=== PATIENT | female | born 1950 | race Caucasian/White ===

== ENCOUNTER 2017-08-17 15:41 | Inpatient (IN) ==
[2017-08-17] MEDS ORDERED: 0.9 % Sodium Chloride 1,000 ML ONE ×2 (15:50→16:08)
[2017-08-17] MEDS ORDERED: *HR* Midazolam HCl 2 MG/2 ML VIAL ONE (15:50)
[2017-08-17] MEDS ORDERED: Verapamil 5 MG/2 ML VIAL ONE (15:50)
[2017-08-17] MEDS ORDERED: *HR* FentaNYL (PF) 100 MCG/2 ML VIAL ONE (15:50)
[2017-08-17] MEDS ORDERED: Nitroglycerin 1,000 MCG/10 ML VIAL IV ONE (15:51)
[2017-08-17] MEDS ORDERED: ISOVUE-370 200 ML INFUS..BTL IV ONE (15:51)
[2017-08-17] MEDS ORDERED: *HR* Heparin 10,000 UNIT/10 ML VIAL ONE (15:51)
[2017-08-17] MEDS ORDERED: Heparin 1,000 UNITS/500 mL 500 ML ONE (15:51)
[2017-08-17] MEDS ORDERED: *HR* Ticagrelor 90 MG TABLET ONE (15:57)
[2017-08-17] MEDS ORDERED: *HR* Heparin 5,000 UNIT/ML VIAL ONE (15:58)
[2017-08-17] MEDS ORDERED: *HR* Heparin 5,000 UNIT/ML VIAL IVP PRN ×4 (15:58→16:37)
[2017-08-17] MEDS ORDERED: *HR* Heparin 5,000 UNIT/ML VIAL IVP ONE (15:58)
--- NOTE | 2017-08-17 15:58 | Emergency Department Note ---
Disposition Clinical Impression: STEMI (ST elevation myocardial infarction) Qualifiers: Involved coronary artery: unspecified coronary artery Qualified Code(s): I21.3 - ST elevation (STEMI) myocardial infarction of unspecified site Disposition: Admitted As Inpatient Condition: Critical Time of Disposition: 16:04 Chest Pain HPI - General Stated Complaint: Stemi Alert Time Seen by Provider: 08/17/17 15:53 Vital Signs Reviewed: Yes Nursing Notes Reviewed: Yes - History of Present Illness HPI Narrative: Mrs. Jensen, 67-year-old female, presents from home via EMS for evaluation of chest pain. Onset 2 PM. Constant. Described as left parasternal, heavy, dull. Nonradiating. Rated 8/10. Associate with nausea. No dyspnea. Patient is on 81 milligrams aspirin and as well as Plavix daily. She is unsure if she took her Plavix today. Cardiac history: Prior history of WV with 45 stents. Patient is unsure of how many stents, their locations, or last [place]. 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 - Related Data Allergies Allergy/AdvReac Type Severity Reaction Status Date / Time No Known Allergies Allergy Verified 08/17/17 15:52 Review of Systems: As Per HPI Physical Exam Vital Signs Reviewed General: Patient is alert, oriented, and in acute distress from her chest pain. He appears frail and cachectic. Head: atraumatic, normocephalic Eye: normal appearance, PERRL, EOMI, no scleral icterus, no conjunctival injection ENT: mucous membranes moist, normal external ear exam Neck: normal inspection, trachea midline, full ROM Chest: normal inspection, symmetric chest rise Respiratory: Good respiratory effort. Bilateral breath sounds are clear without wheezing, crackles, or rhonchi. Cardiovascular: Regular rate and rhythm. No clicks, rubs, gallops, or murmors. Normal heart sounds. Abdomen: Bowel sounds present normoactive x-4 quadrants. Abdomen is soft, nondistended, and nontender. No guarding or rebound. No organomegaly noted. Musculoskeletal: Spontaneously moving all extremities. Skin: warm, dry, intact. Neuro: Alert and oriented x4. Sensation light touch intact. Psych: Patient's affect is appropriate for situation. Course Course Narrative: Intake EKG during triage shows inferior lateral STEMI. STEMI alert called. Patient received full dose of aspirin in route by EMS. Will avoid nitroglycerin given the location of her ischemic changes on EKG. Attending discussed the patient with on-call cutter hot knife, Dr. Triplett, who accepts the patient to the Specialist Icu. Patient given heparin bolus and Brilenta. EKG dated 02 06 2018 interpreted as sinus rhythm with rate of 70. ST elevation leads 2, 3, and aVF with ST depression in aVL and T-wave inversion in leads V1, V2, and V3. Heart Score - Score History: Highly Suspicious EKG: Significant ST-Depression Age: 45-65 Risk Factors: Equal/Greater than 3 risk factor or history of atherosclerotic disease
[2017-08-17] MEDS ORDERED: *HR* Ticagrelor 90 MG TABLET PO ONE (15:59)
--- NOTE | 2017-08-17 16:03 | Emergency Department Note ---
Disposition Clinical Impression: STEMI (ST elevation myocardial infarction) Disposition: Admitted As Inpatient Condition: Critical Time of Disposition: 16:00 Chest Pain HPI - General Chief Complaint: ED Chest Pain Stated Complaint: Stemi Alert Time Seen by Provider: 08/17/17 15:53 Source: EMS Mode of arrival: ambulatory Limitations: no limitations Vital Signs Reviewed: Yes Nursing Notes Reviewed: Yes - History of Present Illness Severity scale (1-10): 8 - Related Data Allergies Allergy/AdvReac Type Severity Reaction Status Date / Time No Known Allergies Allergy Verified 08/17/17 15:52 Chest Pain PMH - Past Medical History Medical history: Reports: CHF, COPD, coronary artery disease, CVA, hyperlipidemia, hypertension Psychiatric history: Reports: no psych history CLAIMS ACCOUNT MANAGER history: Reports: no CLAIMS ACCOUNT MANAGER history - Social History Smoking Status: Current every day smoker Alcohol use: Reports: none Drug use: Reports: none Physical Exam - General Limitations: no limitations General appearance: alert, in no apparent distress Course Vital Signs Temperature 98.5 F 08/17/17 15:50 Pulse Rate 74 08/17/17 15:50 Respiratory Rate 14 08/17/17 15:50 Blood Pressure 146/66 08/17/17 15:50 O2 Sat by Pulse Oximetry 74 08/17/17 15:50 Temperature 98.5 F 08/17/17 15:50 Pulse Rate 74 08/17/17 15:50 Respiratory Rate 14 08/17/17 15:50 Blood Pressure 146/66 08/17/17 15:50 O2 Sat by Pulse Oximetry 74 08/17/17 15:50 Oxygen Delivery Oxygen Delivery Nasal Cannula Attestation Statement - Attestation Attestation: I, Henrry Owens, examined this patient and my medical decision-making was reviewed with the PERFORMANCE SPECIALIST/PA/Advanced Practice Nurse/Resident Physician. I agree with the documented findings, disposition and treatment plan as described except to the extent set forth below. 67-year-old female presents emergency Department with acute onset chest pain at 1400. Patient states she had acute onset of nausea and diaphoresis associated with this chest pain. The chest pain associated in the center of her chest and does not radiate. She has a history of previous WI with about [address] Patient is unsure when the last time she had a cardiac evaluation. She not remember the name of her bottle blower. She had an EKG which showed likely inferior WI with elevations in leads 2, 3, aVF with depressions in leads aVL and V6. And T-wave inversions in V2, V3, V1. Patient was assessed immediately on arrival, we spoke with the baby counselor, Dr. Triplett who accepted to the Third Rigger. Patient given 324 chewable aspirin in the EMS ride, she was given Proventil in the emergency department as well as a heparin bolus.
[2017-08-17] MEDS ORDERED: *HR* Atropine Sulfate 1 MG/10 ML SYRINGE ONE (16:16)
[2017-08-17 16:19] LABS: Basophils % 0.1 %; Hematocrit 32.5 % (35.3-44.9); Hemoglobin 10.2 g/dL (11.5-15.4); Immature Granulocytes % 0.3 % (0-4); Lymphocytes # 0.8 K/mcL (0.6-4.6); Lymphocytes % 11.5 %; Mean Corpuscular HGB Conc 31.4 g/dL (31.6-35.5); Mean Corpuscular Hemoglobin 20.9 pg (28.0-33.3); Mean Corpuscular Volume 66.6 fL (83.0-100.0); Mean Platelet Volume 10.1 fL (9.4-12.4); Monocytes # 0.5 K/mcL (0.0-1.3); Monocytes % 7.5 %; Neutrophils # 5.4 K/mcL (1.6-8.9); Platelet Count 324 K/mcL (140-400); Red Blood Count 4.88 M/mcL (3.82-4.97); Red Cell Distribution Width 18.6 % (11.5-14.5); Segmented Neutrophils % 80.6 %
[2017-08-17 16:36] LABS: INR 1.2; Prothrombin Time 12.5 Seconds (9.4-12.1)
[2017-08-17 16:39] LABS: Activated Partial Thrombo Time 30.5 Seconds (26.0-36.0)
[2017-08-17 16:45] LABS: Anisocytosis 1+ (Not Present); Hypochromasia Present (Not Present); Microcytosis Present (Not Present); Platelet Estimate Normal (Normal)
[2017-08-17 16:47] LABS: BUN/Creatinine Ratio 17 (6-26); Blood Urea Nitrogen 8 mg/dL (8-23); Calcium 8.6 mg/dL (8.6-10.3); Carbon Dioxide 25 mEq/L (23-29); Chloride 82 mEq/L (98-107); Glucose 110 mg/dL (70-105); Magnesium 1.5 mg/dL (1.6-2.6); Osmolality,Calculated 245 (280-300); Potassium 3.3 mEq/L (3.5-5.1); Sodium 118 mEq/L (136-145); Troponin I 0.05 ng/mL (< 0.04); eGFR For African Americans > 60 (> 60); eGFR For Non-African Americans > 60 (> 60)
--- NOTE | 2017-08-17 17:00 | Pre-Sedation Evaluation ---
Pre-sedation evaluation - Pre-sedation checklist Date of procedure: 08/17/17 Procedure: [facility] Recent Vitals: Last Vital Signs Temp 98.5 F 08/17/17 15:50 Pulse 72 08/17/17 15:57 Resp 14 08/17/17 16:04 BP 146/66 08/17/17 16:04 Pulse Ox 94 08/17/17 15:57 H&P (including ROS) documented in medical record: Yes Previous reaction to sedatives/anesthetics: No Dietary Status: NPO after Midnight Airway Assessment: Patient can open mouth completely, TMJ function normal ASA Classification *see protocol: CLASS II-Mild systemic disease Plan of Care: Pt appropriate candidate for procedure/moderate/conscious sedation , Risks/benefits of procedure/sedation discussed w/ patient/family
--- NOTE | 2017-08-17 17:05 | Cardiology History & Physical ---
Date of Encounter: 08/20/17 Time of Encounter: 17:00 Assessment and Plan (1) STEMI (ST elevation myocardial infarction) Current Visit: Yes Status: Ruled-out A/R/B of emergent LHC discussed with her including 1% chance of MN//CVA/ CABG/MILO/bleeding. Pt aware and agreeable with proceeding. Will attempt to obtain old EKG from [facility]. EF assessment and cardiac rehab. The assessment and plan as outlined above was discussed with the patient and/or family members who expressed understanding and agreement. All questions were answered. Qualifiers: Involved coronary artery: other inferior wall coronary artery Qualified Code(s): I21.19 - ST elevation (STEMI) myocardial infarction involving other coronary artery of inferior wall (2) Hyponatremia Current Visit: Yes Status: Acute The assessment and plan as outlined above was discussed with the patient and/or family members who expressed understanding and agreement. All questions were answered. (3) Hypokalemia Current Visit: Yes Status: Acute The assessment and plan as outlined above was discussed with the patient and/or family members who expressed understanding and agreement. All questions were answered. History of Present Illness Chief complaint: chest pain HPI: Ms. Jnesen is a 67 year old female with CAD sp PCI and Systolic CHF sp ICD presents with 10/10 left sided chest pain not relieved with aspirin/ntg. EKG shows inferior Q waves and ST elevation with ongoing chest discomfort and at the time no previous EKG to compare (all records at [facility]). Subsequently, laboratory chemical assistant team activated. Past Med Surg Social Fam HX - Past Medical History Medical history: CHF, COPD, coronary artery disease, CVA, hyperlipidemia, hypertension Psychiatric history: no psych history - Social History Smoking Status: Current every day smoker Smokeless Tobacco Status: No Alcohol use: none Drug use: none Medications and Allergies Clopidogrel [Plavix] 75 mg PO DAILY 08/17/17 [History] Furosemide [Lasix] 20 mg PO DAILY 08/17/17 [History] Metoprolol XL (24 HR) Succ [Toprol Xl] 12.5 mg PO DAILY 08/17/17 [History] Omeprazole [PriLOSEC] 20 mg PO DAILY 08/17/17 [History] Sacubitril/Valsartan [Entresto 24 mg-26 mg Tablet] 1 tab PO BID 08/17/17 [ History] Spironolactone [Aldactone] 25 mg PO DAILY 08/17/17 [History] 3 Allergy/AdvReac Type Severity Reaction Status Date / Time No Known Allergies Allergy Verified 08/17/17 15:52 All Systems Review: The remainder of the systems were reviewed and are negative - Constitutional Constitutional: no chills, no fever(s) - EENT Eyes: no blurred vision, no loss of vision Nose, mouth and throat: no bleeding gums, no dysphagia - Cardiovascular Cardiovascular: chest pain at rest, chest pain with exertion - Respiratory Respiratory: no hemoptysis, no wheezing - Gastrointestinal Gastrointestinal: no hematemesis, no hematochezia - Genitourinary Genitourinary: no dysuria, no hematuria - Musculoskeletal Musculoskeletal: no arthralgias, no myalgias - Integumentary Integumentary: no rash, no unusual bruising - Neurological Neurological: no syncope, no tingling - Psychiatric Psychiatric: no hallucinations, no panic attacks - Hematological/Lymphatic Hematologic/Lymphatic: no easy bleeding, no easy bruising Physical Examination General: Conversant, No Apparent Distress HEENT: Atraumatic Neck: No JVD Cardiac: Reg Rate and Rhythm, Normal S1 and S2 Lungs: Normal Breath Sounds Neuro: Alert and responsive Abdomen: Soft Skin: No rashes noted on visualized skin Musculoskeletal: No Chest Wall Tenderness Extremities: No Edema Results 08/20/17 03:46 08/20/17 03:46 - EKG Interpretation EKG results cardiology: personally reviewed, sinus rhythm (inferior Q wave and st elevation; with LVH and strain pattern. no old ekg to compare)
[2017-08-17] MEDS ORDERED: Ondansetron 4 MG/2 ML VIAL IVP PRN (17:09)
[2017-08-17] MEDS ORDERED: Ipratropium/Albuterol Neb 3 ML IH ONE (17:26)
--- NOTE | 2017-08-17 18:38 | Invasive Diagnostic Lab Proc ---
Name: Allyn Jensen Date of Study: 08/17/2017 Date: 1950 Ht: 66.5in Medical Record#: [id number] Age: 67 Wt: 119.05lb Gender: Female BSA: 1.61 Order #: [id number] BMI: 18.91 Physicians Procedure Physician: Lawrence Triplett [facility], [facility] Referring MD: Referring MD: Staff Name Position [facility] Monitor 04:06 PM Leah Cook RN Credit Risk Management Director 04:06 PM Janett Lewis RN Credit Risk Management Director 04:06 PM Sergio Ralph RN Nurse 04:06 PM Leslie Jurado RN Nurse 04:06 PM Kriss Downing RT Scrub 04:06 PM Indications Indication STEMI Procedures Performed Procedure L HRT ARTERY/VENTRICLE ANGIO Pre-Procedure Checklist H&P is on chart. ID band is on and ID verified with patient. Patient NPO for procedure The procedure was described for the patient and questions were answered. Blood Pressure: 122/83 ECG is on chart. Rhythm: NSR Plan of Care Patient will tolerate the procedure without complications. Adequate level of comfort will be maintained. Hemodynamics will remain stable Patient will recover from procedure without complications. Respiratory function will be maintained. Cardiac rhythm will remain stable. Patient temperature will be maintained. Patient and/or family have verbalized understanding of the procedure. Patient Education Intravenous Access Time IV Size Location DC'd Fluid/Drip Rate Units RN 20g 1 1/4" Patent On Arrival Lt Hand Leah Cook RN 18g 1 1/4" Patent On Arrival Rt Antecubital Leah Cook RN Allergies No Known Allergies Vital Signs Time BP (mmHg) HR (bpm) O2 Sat. RR (bpm) LOC 04:07 PM / % 5 = Fully awake and oriented or at pre-proc level 04:07 PM / % 4 = Oriented but drowsy 04:37 PM / % 4 = Oriented but drowsy 04:53 PM 122 / 83 69 100 % 04:58 PM 119 / 81 69 100 % 04:08 PM 127 / 97 173 93 % 04:13 PM 110 / 77 69 85 % 04:18 PM 88 / 63 67 % 04:23 PM 100 / 59 64 97 % 04:28 PM 96 / 65 72 97 % 04:33 PM 101 / 69 72 98 % 04:38 PM 100 / 71 70 98 % 04:43 PM 110 / 78 72 99 % 04:48 PM 112 / 79 71 100 % 05:15 PM 107 / 85 66 100 % 16 5 = Fully awake and oriented or at pre-proc level 05:30 PM 135 / 92 58 99 % 18 5 = Fully awake and oriented or at pre-proc level 05:45 PM 141 / 84 60 100 % 14 5 = Fully awake and oriented or at pre-proc level 06:00 PM 153 / 94 72 98 % 16 5 = Fully awake and oriented or at pre-proc level 06:15 PM 146 / 97 65 97 % 18 5 = Fully awake and oriented or at pre-proc level 06:27 PM 110 / 92 67 97 % 16 5 = Fully awake and oriented or at pre-proc level Procedural Medications Time Medication Dose Units Method Given By 04:07 PM Oxygen 2 L/min nasal cannula Janett Lewis RN 04:09 PM Versed 2 mg Intravenous Leah Cook RN 04:09 PM Fentanyl 50 mcg Intravenous Leah Cook RN 04:11 PM Lidocaine 2% 0.[address] Triplett 04:13 PM Heparin units Nitroglycerin 200 mcg Verapamil 2.5 mg Intraarterial Lawrence Triplett MD, FACC 04:13 PM Oxygen 6 L/min nasal cannula Leah Cook RN 04:15 PM Oxygen 6 L/min Oxy Mask Leah Cook RN Willie Score Preprocedure Postprocedure Activity 2- Moves 4 extremities sustained head lift Activity 2- Moves 4 extremities sustained head lift Circulation 2- SBP +/= 20 points of pre-anesthetic level Circulation 2- SBP +/= 20 points of pre-anesthetic level Consciousness 2- Awake and alert oriented x 3 Consciousness 2- Awake and alert oriented x 3 O2 Saturation 1- Needs O2 inhalation to maintain O2 saturation of 90% O2 Saturation 1- Needs O2 inhalation to maintain O2 saturation of 90% Respiratory 2- Able to deep breathe and cough well Respiratory 2- Able to deep breathe and cough well Total Score 9 Total Score 9 Contrast Agent: Isovue Diagnostic Contrast: 46 ml Total Contrast: 46 ml Fluoro Dose: 120 mGy Procedure Log Time Note Enter By 04:06 PM Pt arrived to [facility] 2 at 16:06 [facility] 04:06 PM Liliam Stanford RN Position: Monitor Time in: 16:06 [email or web address] 04:06 PM Leah Cook RN Position: Credit Risk Management Director Time in: 16: tsoummers 04:06 PM Janett Lewis RN Position: Credit Risk Management Director Time in: 16: tsoummers 04:06 PM Sergio Ralph RN Position: Nurse Time in: 16: tsoummers 04:06 PM Leslie Jurado RN Position: Nurse Time in: 16: tsoummers 04:06 PM Kriss Downing RT Position: Scrub Time in: 16: tsoummers 04:06 PM Patient charges- Angio tray pack, Navilyst 3mm J, Pulse Oximetry and ACIST tubing and transducer tsoummers 04:06 PM Case Delayed No tsoummers 04:07 PM Hair removed from procedure site in procedure lab using clippers. Bilateral groin prepped with Chloraprep by Leslie Jurado RN, then patient was draped. Skin intact. tsoummers 04:07 PM Physican paged/called 16:07. tsoummers 04:07 PM Physicsilvina responded and notified patient is ready 16: tsoummers 04:07 PM Physician arrived 16: tsoummers 04:07 PM Meet and greet completed tsoummers 04:07 PM Sign in performed according to hospital policy. tsoummers 04:07 PM Procedure start 16: tsoummers 04:07 PM Time: 16:07 Oxygen on at 2 L/min per nasal cannula by Janett Lewis RN tsoummers 04:07 PM Hair removed from procedure site in procedure lab using clippers. Right wrist prepped with Chloraprep by Leslie Jurado RN, then patient was draped. Skin intact. tsoummers 04:07 PM Time: 16:07 Patient comfortable and pain free: Yes tsoummers 04:07 PM Time: 16:07LOC: 5 = Fully awake and oriented or at pre-proc level tsoummers 04:07 PM Vitals capture started with the following parameters, Patient=Adult, Interval=5 min, Initial Odgbijbo=600 mmHg, Deflation Rate=5 mmHg, Cuff placed on Right Arm 04:07 PM CathStat 04:08 PM AL=377 bpm, UGWE=738/97 mmhg, SpO2=93.0 % 04:09 PM Time: 16:09 Versed 2 mg Intravenous Given by Leah Cook RN 04:09 PM Time: 16:09 Fentanyl 50 mcg Intravenous Given by Leah Cook RN 04:09 PM Recorded ECG: HR=81 Condition=Condition 1 04:10 PM Clinical Presentation: STEMI or equivalent tsoumm 04:11 PM Time out performed according to hospital policy oumm 04:11 PM Time: 16:11 0.5 ml Lidocaine 2% to right radial Subcutaneous Given by Dr. Triplett rajeshcherelle 04:12 PM Recorded ECG: HR=75 Condition=Condition 1 04:13 PM HR=69 bpm, DNLW=859/77 mmhg, SpO2=85.0 % 04:13 PM Access obtained by percutaneous puncture. 6Fr 10cm Terumo Glidesheath sheath placed in right Radial artery. [id number] 04:13 PM Time: 16:13 Patient given 200 mcg Nitroglycerin, and 2.5 mg Verapamil Intraarterial by Lawrence Triplett MD, [facility]. This is given to reduce risk of vessel spasm and thrombosis. oumm 04:13 PM Time: 16:13 Oxygen on at 6 L/min per nasal cannula by Leah Cook RN [facility] 04[facility]14 PM Inflation device was opened. tsoumm 04:14 PM 6Fr JR 4 Runway guide catheter was used to cannulate the PCI vessel successfully. reused? No oummers 04:14 PM 0.035 260cm Navilyst 3mmJ wire [id number] tsoummers 04:14 PM Pressure channel 1 zero failed. 04:14 PM Pressure channel 1 zero failed. 04:14 PM Pressure channel 1 zero failed. 04:15 PM wire removed oummcherelle 04:15 PM Time: 16:15 Oxygen on at 6 L/min per Oxy Mask by Leah Cook RN 04:15 PM Pressure channel 1 zero failed. 04:15 PM Recorded Pressure: Ao, HR=68, Condition=Condition 1 (Aorta) Ao 109/73/89 04:16 PM RCA angiography performed in multiple views. tsoummers 04:16 PM Lesion found in Mid RCA. Pre Stenosis: 100 Pre JEAN-PIERRE Flow: 0: No Flow/No perfusion tsoummers 04:16 PM .014 [place] 190cm guide wire across target lesion- successful. reused? No oummers 04:16 PM Coronary Dominance: right tsmmers 04:16 PM Right Coronary, Right Posterior Descending Arteries with Right Posterolateral and Acute Marginal branches with 100 % stenosis. If graft is supplying this area, 0 % stenosis [facility] 04:17 PM 2.0 mm x 15 mm Emerge Monorail balloon across target lesion- successful. [facility]used? [facility] 04:18 PM HR=67 bpm, NIBP=88/63 mmhg 04:19 PM Balloon inflated @ 2 isabelle for 2 seconds [facility] 04:21 PM Guide wire removed intact. [facility] 04:21 PM Balloon catheter removed intact. [facility] 04:22 PM Guide catheter removed intact. [facility] 04:22 PM 5Fr TIG catheter inserted over the wire [facility] 04:22 PM Time: 16:07LOC: 4 = Oriented but drowsy [facility] 04:22 PM Time: 16:07 Patient comfortable and pain free: [facility] 04:23 PM 100cc bolus of 0.9 NS administered per Leah Cook RN [facility] 04:23 PM HR=64 bpm, GFTH=192/59 mmhg, SpO2=97.0 % 04:24 PM LCA angiography performed in multiple views. [facility] 04:24 PM Recorded Pressure: Ao, HR=65, Condition=Condition 1 (Aorta) Ao 110/75/91 04:[address] [facility] 04:26 PM Pressure channel 1 zero failed. 04:26 PM Pressure channel 1 zeroed. 04:27 PM 5Fr Pigtail catheter [facility] over the [facility] 04[facility]27 PM Catheter selectively placed in left ventricle [facility] 04:28 PM HR=72 bpm, NIBP=96/65 mmhg, SpO2=97.0 % 04:28 PM Recorded Pressure: LV, HR=72, Condition=Condition 1 (Left Ventricle) LV 109/-2/7 04:28 PM Bolus angiogram of left Ventricle complete: 10 ml/sec for a total of 20 mls [facility] 04:29 PM Recorded Pressure: LV, Ao, HR=72, Condition=Condition 1 (Left Ventricle) LV 118/7/16, (Aorta) Ao 111/55/77 04:30 PM Catheter removed tsoummers 04:30 PM patient reports 7/10 left chest pain tsoummers 04:33 PM HR=72 bpm, XNKH=575/69 mmhg, SpO2=98.0 % 04:33 PM Recorded ECG: HR=73 Condition=Condition 1 04:36 PM JR4 guide reinserted unable to advance tsoummers 04:38 PM HR=70 bpm, IOFO=066/71 mmhg, SpO2=98.0 % 04:43 PM HR=72 bpm, MUGZ=356/78 mmhg, SpO2=99.0 % 04:44 PM trying obtain previous ekg from [facility] EKG compared no changes per Dr Triplett [email or web address] 04:48 PM HR=71 bpm, SFQJ=777/79 mmhg, KeU0=733.0 % 04:53 PM Time: 16:37LOC: 4 = Oriented but drowsy tsoummers 04:53 PM Time: 16:37 Patient comfortable and pain free: Yes tsoummers 04:53 PM HR=69 bpm, TTTW=110/83 mmhg, AlZ6=845.0 % 04:58 PM HR=69 bpm, QZUU=184/81 mmhg, AnO4=050 % 05:01 PM Guide catheter removed intact. tsoummers 05:01 PM Procedure completed at 17:01 tsoummers 05:01 PM Sign out completed: Radiation Dose 120 mGy Fluoro Time: 4.8 Isovue 370 - 200ml contrast 46 ml given by Lawrence Triplett MD, [facility]. Complications: NoneCardiac Rehab Consult needed: YesConfirmed administered medications: Yes tsoummers 05:01 PM Isovue 370 - 200ml,1 Bottle(s) used. tsoummers 05:02 PM Arterial sheath pulled, Vasc Band closure device used and was Successful S/N. tsoummers 05:02 PM 13 ml air in Vasc Band. tsoummers 05:02 PM Estimated Blood Loss: less than 20cc tsoummers 05:02 PM Post ECG NSR tsoummers 05:03 PM Post Blood Pressure 119/81 tsoummers 05:04 PM 17:03 Post Pulses Rt Radial 1+ tsoummers 05:04 PM Information taught Cardiac Cath tsoummers 05:04 PM Education needs Procedure, Plan of Care, and Responsibilities of Patient in Care tsoummers 05:04 PM Learning barriers :None [facility] 05:05 PM Education Methods Verbal [facility] 05:[facility] PM Education evaluation Able to repeat information [facility] 05:05 PM Site status No bleeding/hematoma - Rt Wrist as reported by Kriss Downing RT at 17:05 tsoummers 05:10 PM Delay to floor Bed [facility] 05[facility]10 PM Patient out of room: 17:10 [facility] 05:10 PM Report given to leah JACKSON Pt taken to Holding room Room #3. 17:10 [facility] 05:15 PM Received patient to holding room 3. monitors applied. O2 @4l/oxy mask. Patient audibly wheezing. [facility] 05:24 PM Order received for duo neb treatment, [facility] 05:36 PM Respiratory at bedside breathing treatment given, tray ordered. [facility] 05:42 PM O2 weaned to 2l/nc after breathing [facility] 06:10 PM food tray received. pt sitting up in bed eating. denies any needs at this time. bed in lowest position, call light within reach. [facility] 06:28 PM Report given to Reyna JACKSON Pt taken to ICU Room #3. 18:28 [facility] 06:28 PM [facility]: 18:28 [facility] Complications Complication None Hemodynamics Pressures Site Systolic/A Wave Diastolic/V Wave Mean AO 109 73 89 AO 110 75 91 LV 109 -2 7 LV 118 7 16 AO 111 55 77 Post Procedure Information Blood Pressure: 119/81 mmHg Rhythm: NSR Post procedural instructions were given Closure Device Time Device Success/Fail Mechanical Compression Successful Site Checks Time Location Status Staff Sheath In? Note 05:05 PM Rt Wrist No bleeding/hematoma Kriss Downing RT 05:15 PM Rt Wrist No bleeding/ No Hematoma Janett Lewis RN 05:30 PM Rt Wrist No bleeding/ No Hematoma Janett Lewis RN 05:45 PM Rt Wrist No bleeding/ No Hematoma Janett Lewis RN 06:00 PM Rt Wrist No bleeding/ No Hematoma Janett Lewis RN 06:15 PM Rt Wrist No bleeding/ No Hematoma Janett Lewis RN 2cc air deflated 06:27 PM Rt Wrist No bleeding/ No Hematoma Bruce Nunn MD 2cc air deflated Pulses Time Site Pre-Procedure Post-Procedure Note 5:03:00 PM Rt Radial 1+ 08/17/2017 5:15:00 PM Rt Radial 2+ 08/17/2017 5:30:00 PM Rt Radial 2+ 08/17/2017 5:45:00 PM Rt Radial 2+ 08/17/2017 6:00:00 PM Rt Radial 2+ 08/17/2017 6:15:00 PM Rt Radial 2+ 08/17/2017 6:27:00 PM Rt Radial 2+ Updated by Leah Cook RN on 08/17/2017 6:30:00 PM electronically signed on 08/17/2017 6:30:42 PM with status of Final
[2017-08-17] MEDS ORDERED: *HR* OxyCODONE/APAP 5/325 TABLET PO PRN (19:20)
[2017-08-17] MEDS ORDERED: Nitroglycerin 0.4 MG TAB.SUBL SL PRN (19:20)
--- NOTE | 2017-08-17 19:28 | Invasive Diagnostic Lab Proc ---
Name: Allyn Jensen Date of Study: 08/17/2017 Date: 1950 Ht: 66.5in Medical Record#: [id number] Age: 67 Wt: 119.05lb Gender: Female BSA: 1.61 Order #: [id number] BMI: 18.91 Physicians Procedure Physician: Lawrence Triplett MD, [facility] Referring MD: Referring MD: Staff Name Position Time In [facility] Monitor 04:06 PM Leah Cook RN Edger Machine Setter 04:06 PM Janett Lewis RN Edger Machine Setter 04:06 PM Sergio Ralph RN Nurse 04:06 PM Leslie Jurado RN Nurse 04:06 PM Kriss Downing RT Scrub 04:06 PM Indications Indication STEMI Procedures Performed Procedure L HRT ARTERY/VENTRICLE ANGIO Pre-Procedure Checklist H&P is on chart. ID band is on and ID verified with patient. Patient NPO for procedure The procedure was described for the patient and questions were answered. Blood Pressure: 122/83 ECG is on chart. Rhythm: NSR Plan of Care Patient will tolerate the procedure without complications. Adequate level of comfort will be maintained. Hemodynamics will remain stable Patient will recover from procedure without complications. Respiratory function will be maintained. Cardiac rhythm will remain stable. Patient temperature will be maintained. Patient and/or family have verbalized understanding of the procedure. Patient Education Intravenous Access Time IV Size Location DC'd Fluid/Drip Rate Units RN 20g 1 1/4" Patent On Arrival Lt Hand Leah Cook RN 18g 1 1/4" Patent On Arrival Rt Antecubital Leah Cook RN Allergies No Known Allergies Vital Signs Time BP (mmHg) HR (bpm) O2 Sat. RR (bpm) LOC 04:07 PM / % 5 = Fully awake and oriented or at pre-proc level 04:07 PM / % 4 = Oriented but drowsy 04:37 PM / % 4 = Oriented but drowsy 04:53 PM 122 / 83 69 100 % 04:58 PM 119 / 81 69 100 % 04:08 PM 127 / 97 173 93 % 04:13 PM 110 / 77 69 85 % 04:18 PM 88 / 63 67 % 04:23 PM 100 / 59 64 97 % 04:28 PM 96 / 65 72 97 % 04:33 PM 101 / 69 72 98 % 04:38 PM 100 / 71 70 98 % 04:43 PM 110 / 78 72 99 % 04:48 PM 112 / 79 71 100 % 05:15 PM 107 / 85 66 100 % 16 5 = Fully awake and oriented or at pre-proc level 05:30 PM 135 / 92 58 99 % 18 5 = Fully awake and oriented or at pre-proc level 05:45 PM 141 / 84 60 100 % 14 5 = Fully awake and oriented or at pre-proc level 06:00 PM 153 / 94 72 98 % 16 5 = Fully awake and oriented or at pre-proc level 06:15 PM 146 / 97 65 97 % 18 5 = Fully awake and oriented or at pre-proc level 06:27 PM 110 / 92 67 97 % 16 5 = Fully awake and oriented or at pre-proc level 06:45 PM / 68 % 5 = Fully awake and oriented or at pre-proc level 07:00 PM 128 / 89 70 96 % 16 5 = Fully awake and oriented or at pre-proc level 07:15 PM 130 / 83 69 96 % 16 5 = Fully awake and oriented or at pre-proc level Procedural Medications Time Medication Dose Units Method Given By 04:07 PM Oxygen 2 L/min nasal cannula Janett Lewis RN 04:09 PM Versed 2 mg Intravenous Leah Cook RN 04:09 PM Fentanyl 50 mcg Intravenous Leah Cook RN 04:11 PM Lidocaine 2% 0.[address] Triplett 04:13 PM Heparin units Nitroglycerin 200 mcg Verapamil 2.5 mg Intraarterial Lawrence Triplett MD, FACC 04:13 PM Oxygen 6 L/min nasal cannula Leah Cook RN 04:15 PM Oxygen 6 L/min Oxy Mask Leah Cook RN Willie Score Preprocedure Postprocedure Activity 2- Moves 4 extremities sustained head lift Activity 2- Moves 4 extremities sustained head lift Circulation 2- SBP +/= 20 points of pre-anesthetic level Circulation 2- SBP +/= 20 points of pre-anesthetic level Consciousness 2- Awake and alert oriented x 3 Consciousness 2- Awake and alert oriented x 3 O2 Saturation 1- Needs O2 inhalation to maintain O2 saturation of 90% O2 Saturation 1- Needs O2 inhalation to maintain O2 saturation of 90% Respiratory 2- Able to deep breathe and cough well Respiratory 2- Able to deep breathe and cough well Total Score 9 Total Score 9 Contrast Agent: Isovue Diagnostic Contrast: 46 ml Total Contrast: 46 ml Fluoro Dose: 120 mGy Procedure Log Time Note Enter By 04:06 PM Pt arrived to laboratory apparatus glass blower 2 at 16:06 [email or web address] 04:06 PM Liliam Stanford RN Position: Monitor Time in: 16:06 [email or web address] 04:06 PM Leah Cook RN Position: Edger Machine Setter Time in: 16:06 [email or web address] 04:06 PM Janett Lewis RN Position: Edger Machine Setter Time in: 16: [email or web address] 04:06 PM Sergio Ralph RN Position: Nurse Time in: 16: [email or web address] 04:06 PM Leslie Jurado RN Position: Nurse Time in: 16: [email or web address] 04:06 PM Kriss Downing RT Position: Scrub Time in: 16:06 [email or web address] 04:06 PM Patient charges- Angio tray pack, Navilyst 3mm J, Pulse Oximetry and ACIST tubing and transducer tsoummers 04:06 PM Case Delayed No [email or web address] 04:07 PM Hair removed from procedure site in procedure lab using clippers. Bilateral groin prepped with Chloraprep by Leslie Jurado RN, then patient was draped. Skin intact. [email or web address] 04:07 PM Physicsilvina paged/called 16:07. tsoummers 04:07 PM Physicsilvina responded and notified patient is ready 16:07 tsoummers 04:07 PM Physician arrived 16:07 tsoummers 04:07 PM Meet and greet completed oumm 04:07 PM Sign in performed according to hospital policy. [email or web address] 04:07 PM Procedure start 16:07 [email or web address] 04:07 PM Time: 16:07 Oxygen on at 2 L/min per nasal cannula by Janett Lewis RN tsoummers 04:07 PM Hair removed from procedure site in procedure lab using clippers. Right wrist prepped with Chloraprep by Leslie Jurado RN, then patient was draped. Skin intact. [email or web address] 04:07 PM Time: 16:07 Patient comfortable and pain free: Yes tsoummers 04:07 PM Time: 16:07LOC: 5 = Fully awake and oriented or at pre-proc level tsoummers 04:07 PM Vitals capture started with the following parameters, Patient=Adult, Interval=5 min, Initial Lnpbwgyw=068 mmHg, Deflation Rate=5 mmHg, Cuff placed on Right Arm 04:07 PM CathStat 04:08 PM HE=304 bpm, ZCDI=981/97 mmhg, SpO2=93.0 % 04:09 PM Time: 16:09 Versed 2 mg Intravenous Given by Leah Cook RN 04:09 PM Time: 16:09 Fentanyl 50 mcg Intravenous Given by Leah Cook RN 04:09 PM Recorded ECG: HR=81 Condition=Condition 1 04:10 PM Clinical Presentation: STEMI or equivalent [email or web address] 04:11 PM Time out performed according to hospital policy oummers 04:11 PM Time: 16:11 0.5 ml Lidocaine 2% to right radial Subcutaneous Given by Dr. Triplett rajeshcherelle 04:12 PM Recorded ECG: HR=75 Condition=Condition 1 04:13 PM HR=69 bpm, QHZD=002/77 mmhg, SpO2=85.0 % 04:13 PM Access obtained by percutaneous puncture. 6Fr 10cm Terumo Glidesheath sheath placed in right Radial artery. [id number] oummers 04:13 PM Time: 16:13 Patient given 200 mcg Nitroglycerin, and 2.5 mg Verapamil Intraarterial by Lawrence Triplett MD, [facility]. This is given to reduce risk of vessel spasm and thrombosis. mm 04:13 PM Time: 16:13 Oxygen on at 6 L/min per nasal cannula by Leah Cook RNcherelle 04:14 PM Inflation device was opened. [email or web address] 04:14 PM 6Fr JR 4 Runway guide catheter was used to cannulate the PCI vessel successfully. reused? No tsoummers 04:14 PM 0.035 260cm Navilyst 3mmJ wire [id number] tsoummers 04:14 PM Pressure channel 1 zero failed. 04:14 PM Pressure channel 1 zero failed. 04:14 PM Pressure channel 1 zero failed. 04:15 PM wire removed oummers 04:15 PM Time: 16:15 Oxygen on at 6 L/min per Oxy Mask by Leah Cook RN 04:15 PM Pressure channel 1 zero failed. 04:15 PM Recorded Pressure: Ao, HR=68, Condition=Condition 1 (Aorta) Ao 109/73/89 04:16 PM RCA angiography performed in multiple views. tsmm 04:16 PM Lesion found in Mid RCA. Pre Stenosis: 100 Pre JEAN-PIERRE Flow: 0: No Flow/No perfusion [facility] 04:16 PM .[address] [facility] 190cm guide wire across target lesion- successful. reused? No tsoummers 04:16 PM Coronary Dominance: right tsoummers 04:16 PM Right Coronary, Right Posterior Descending Arteries with Right Posterolateral and Acute Marginal branches with 100 % stenosis. If graft is supplying this area, 0 % stenosis tsoummers 04:17 PM 2.0 mm x 15 mm Emerge Monorail balloon across target lesion- successful. reused? No tsoummers 04:18 PM HR=67 bpm, NIBP=88/63 mmhg 04:19 PM Balloon inflated @ 2 isabelle for 2 seconds [email or web address] 04:21 PM Guide wire removed intact. [facility] 04:21 PM Balloon catheter removed intact. [facility] 04:22 PM Guide catheter [facility]. [facility] 04[facility]22 PM 5Fr TIG catheter inserted over the wire [facility] 04:22 PM Time: 16:07LOC: 4 = Oriented but drowsy [facility] 04:22 PM Time: 16:07 Patient comfortable and pain free: [facility] 04:23 PM 100cc bolus of 0.9 NS administered per Leah Cook RN [facility] 04:23 PM HR=64 bpm, UVHH=495/59 mmhg, SpO2=97.0 % 04:24 PM LCA angiography performed in multiple views. [facility] 04:24 PM Recorded Pressure: Ao, HR=65, Condition=Condition 1 (Aorta) Ao 110/75/91 04:25 PM [facility]athe[facility] 04:26 PM Pressure channel 1 zero failed. 04:26 PM Pressure channel 1 zeroed. 04:27 PM 5Fr Pigtail catheter inserted over the wire [facility] 04:27 PM Catheter selectively placed in left ventricle [facility] 04:28 PM HR=72 bpm, NIBP=96/65 mmhg, SpO2=97.0 % 04:28 PM Recorded Pressure: LV, HR=72, Condition=Condition 1 (Left Ventricle) LV 109/-2/7 04:28 PM Bolus angiogram of left Ventricle complete: 10 ml/sec for a total of 20 mls mm 04:29 PM Recorded Pressure: LV, Ao, HR=72, Condition=Condition 1 (Left Ventricle) LV 118/7/16, (Aorta) Ao 111/55/77 04:30 PM Catheter removed mm 04:30 PM patient reports 7/10 left chest pain [facility] 04:33 PM HR=72 bpm, JOFP=917/69 mmhg, SpO2=98.0 % 04:33 PM Recorded ECG: HR=73 Condition=Condition 1 04:36 PM JR4 guide reinserted unable to advance mm 04:38 PM HR=70 bpm, GBUZ=882/71 mmhg, SpO2=98.0 % 04:43 PM HR=72 bpm, WMAS=417/78 mmhg, SpO2=99.0 % 04:44 PM trying obtain previous ekg from [facility] EKG compared no changes per Dr Triplett [facility] 04:48 PM HR=71 bpm, DOTV=849/79 mmhg, XqJ6=112.0 % 04:53 PM Time: 16:37LOC: 4 = Oriented but drowsy mm 04:53 PM Time: 16:37 Patient comfortable and pain free: Yes [facility] 04:53 PM HR=69 bpm, WWEU=802/83 mmhg, AjN9=706.0 % 04:58 PM HR=69 bpm, TSNZ=026/81 mmhg, KhW3=643 % 05:01 PM Guide catheter removed intact. mm 05:01 PM Procedure completed at 17:01 [facility] 05[facility]01 PM Sign out completed: Radiation Dose 120 mGy Fluoro Time: 4.8 Isovue 370 - 200ml contrast 46 ml given by aLwrence Triplett MD, [facility]. Complications: NoneCardiac Rehab Consult needed: YesConfirmed administered medications: Yes [facility] 05:01 PM Isovue 370 - 200ml,1 Bottle(s) used. [facility] 05:02 PM Arterial sheath pulled, Vasc Band closure device used and was Successful S/N. [facility] 05:02 PM 13 ml air in Vasc Band. [facility] 05:02 PM Estimated Blood Loss: less than 20cc tsoummers 05:02 PM Post ECG NSR tsoummers 05:03 PM Post Blood Pressure 119/81 [facility] 05:04 PM 17:03 Post Pulses Rt Radial 1+ [facility] 05:04 PM Information taught Cardiac Cath [facility] 05:04 PM Education needs Procedure, Plan of Care, and Responsibilities of Patient in Care [facility] 05:04 PM Learning barriers :None tsmmers 05:05 PM Education Methods Verbal [facility] 05:05 PM Education evaluation Able to repeat information [facility] 05:05 PM Site status No bleeding/hematoma - Rt Wrist as reported by Kriss Downing RT at 17:05 [email or web address] 05:10 PM Delay to floor Bed availability [facility] 05[facility]10 PM Patient out of room: 17:10 [facility] 05:10 PM Report given to leah JACKSON Pt taken to Holding room Room #3. 17:10 [facility] 05:15 PM Received patient to holding room 3. monitors applied. O2 @4l/oxy mask. Patient audibly wheezing. [facility] 05:24 PM Order received for duo neb treatment, respiratory notified [facility] 05:36 PM Respiratory at bedside breathing treatment given, tray ordered. [facility] 05:42 PM O2 weaned to 2l/nc after breathing treatment [facility] 06[facility] PM food tray received. pt sitting up in bed eating. denies any needs at this time. bed in lowest position, call light within reach. [facility] 06:28 PM Report given to Reyna JACKSON Pt taken to ICU Room #3. 18:28 [facility] 06:28 PM [facility]: 18:28 [facility] 06[facility]32 PM Patient returned to holding area. per bed management bed is available on 2N [facility] 06:46 PM Report given to Ivette JACKSON Pt will be taken to 2N Room #[facility] PM Delay to floor [facility] 07[facility]22 PM [facility]: 19:21 [facility] Complications Complication None Hemodynamics Pressures Site Systolic/A Wave Diastolic/V Wave Mean AO 109 73 89 AO 110 75 91 LV 109 -2 7 LV 118 7 16 AO 111 55 77 Post Procedure Information Blood Pressure: 119/81 mmHg Rhythm: NSR Post procedural instructions were given Closure Device Time Device Success/Fail Mechanical Compression Successful Site Checks Time Location Status Staff Sheath In? Note 05:05 PM Rt Wrist No bleeding/hematoma Rea Downingi RT 05:15 PM Rt Wrist No bleeding/ No Hematoma Janett Lewis RN 05:30 PM Rt Wrist No bleeding/ No Hematoma Janett Lewis RN 05:45 PM Rt Wrist No bleeding/ No Hematoma Janett Lewis RN 06:00 PM Rt Wrist No bleeding/ No Hematoma Janett Lewis RN 06:15 PM Rt Wrist No bleeding/ No Hematoma Janett Lewis RN 2cc air deflated 06:27 PM Rt Wrist No bleeding/ No Hematoma Janett Lewis RN 2cc air deflated 06:45 PM Rt Wrist No bleeding/ No Hematoma Janett Lewis RN 07:00 PM Rt Wrist No bleeding/ No Hematoma Janett Lewis RN 2cc of air deflated 07:15 PM Rt Wrist No bleeding/ No Hematoma Janett Lewis RN 2cc of air deflated Pulses Time Site Pre-Procedure Post-Procedure Note 5:03:00 PM Rt Radial 1+ 08/17/2017 5:15:00 PM Rt Radial 2+ 08/17/2017 5:30:00 PM Rt Radial 2+ 08/17/2017 5:45:00 PM Rt Radial 2+ 08/17/2017 6:00:00 PM Rt Radial 2+ 08/17/2017 6:15:00 PM Rt Radial 2+ 08/17/2017 6:27:00 PM Rt Radial 2+ 08/17/2017 7:00:00 PM Rt Radial 2+ 08/17/2017 7:15:00 PM Rt Radial 2+ Updated by Leah Cook RN on 08/17/2017 7:22:06 PM electronically signed on 08/17/2017 7:22:27 PM with status of Final
[2017-08-17] MEDS: SACUBITRIL/VALSARTAN 49/51 MG TABLET PO SCH (22:43)
[2017-08-18 07:09] LABS: Basophils % 0.4 %; Eosinophils % 0.1 %; Hematocrit 32.8 % (35.3-44.9); Hemoglobin 10.3 g/dL (11.5-15.4); Immature Granulocytes % 0.4 % (0-4); Lymphocytes # 0.5 K/mcL (0.6-4.6); Mean Corpuscular HGB Conc 31.4 g/dL (31.6-35.5); Mean Corpuscular Volume 66.8 fL (83.0-100.0); Mean Platelet Volume 9.6 fL (9.4-12.4); Monocytes # 0.8 K/mcL (0.0-1.3); Monocytes % 9.1 %; Neutrophils # 6.9 K/mcL (1.6-8.9); Platelet Count 328 K/mcL (140-400); Red Blood Count 4.91 M/mcL (3.82-4.97); Red Cell Distribution Width 18.6 % (11.5-14.5)
[2017-08-18 07:30] LABS: BUN/Creatinine Ratio 19 (6-26); Blood Urea Nitrogen 8 mg/dL (8-23); Calcium 8.7 mg/dL (8.6-10.3); Carbon Dioxide 28 mEq/L (23-29); Chloride 85 mEq/L (98-107); Glucose 100 mg/dL (70-105); Osmolality,Calculated 250 (280-300); Potassium 3.3 mEq/L (3.5-5.1); Sodium 121 mEq/L (136-145); eGFR For African Americans > 60 (> 60); eGFR For Non-African Americans > 60 (> 60)
[2017-08-18] MEDS: Spironolactone 25 MG TABLET PO SCH (08:39)
[2017-08-18] MEDS: Metoprolol XL (24 HR) Succ 25 MG TAB.ER.24H PO SCH (08:39)
[2017-08-18] MEDS: SACUBITRIL/VALSARTAN 49/51 MG TABLET PO SCH ×2 (08:39→20:43)
[2017-08-18] MEDS: Aspirin 81 MG TAB.CHEW PO SCH (08:39)
--- NOTE | 2017-08-18 08:49 | Event Note ---
Date of Encounter: 08/18/17 Time of Encounter: 08:45 - Cardiology Event Note Patient has ipsilateral/contralateral collaterals supplying RCA with 100% ISR of mid RCA. Able to obtain old EKG from previous facility with inferior ST changes similar to previous. Patient hemodynamically stable and appears comfortable.
--- NOTE | 2017-08-18 10:58 | Cardiology Progress Note ---
Date of Encounter: 08/18/17 Time of Encounter: 10:57 Assessment and Plan (1) STEMI (ST elevation myocardial infarction) Current Visit: Yes Status: Acute Presenting EKG was concerning for STEMI. C revealed ipsilateral/contralateral collaterals supplying RCA with 100% ISR of mid RCA. Able to obtain old EKG from previous facility with inferior ST changes similar to previous. Right radial access site healing well. No bleeding, hematoma or ecchymosis noted. Patient denies chest pain this AM, reports just "not feeling well". TTE resulted, EF 25%, severe LV systolic dysfunction with regional variation. No LV thrombus seen. Mild MR, Mild TR, Mild-moderate NV, mild phtn. Known CMP with ICD in place. Given hyponatremia Na 121, and pt not feeling well will consulted hospitalist. Keep another night for monitoring. Qualifiers: Involved coronary artery: other inferior wall coronary artery Qualified Code(s): I21.19 - ST elevation (STEMI) myocardial infarction involving other coronary artery of inferior wall (2) Hypokalemia Current Visit: Yes Status: Acute K 3.3. Replacing. (3) Hyponatremia Current Visit: Yes Status: Acute Na 118 on admission, 121 today. Unsure of baseline, request records. Hospitalist consulted, fluid restriction ordered. (4) Cardiomyopathy Current Visit: Yes Status: Acute TTE EF 25%, no evidence of LV thrombus Known CMP with ICD in place. Euvolemic on exam. CXR no acute findings. Continue BB, Entresto. Qualifiers: Cardiomyopathy type: ischemic Qualified Code(s): I25.5 - Ischemic cardiomyopathy (5) CAD (coronary artery disease) Current Visit: Yes Status: Acute Hx of CAD and PCI. C as above. ASA, Plavix, BB, add statin. Qualifiers: Coronary Disease-Associated Artery/Lesion type: [place] artery [place] vs. transplanted heart: [place] heart Associated angina: angina presence unspecified Qualified Code(s): I25.10 - Atherosclerotic heart disease of [place] coronary artery without angina pectoris Discussion w patient/family: The assessment and plan as outlined above was discussed with the patient and/or family members who expressed understanding and agreement. All questions were answered. Thank you for involving us in the care of your patient. Please call with any questions. I will discuss all the above with Dr. Mccrary and make changes as necessary. Subjective Principal diagnosis: Chest pain Interval history: Presenting EKG concerning for STEMI. LHC revealed ipsilateral/contralateral collaterals supplying RCA with 100% ISR of mid RCA. Able to obtain old EKG from previous facility with inferior ST changes similar to previous. Patient denies chest pain this AM, reports just "not feeling well". Na was 118 on admission, 121 today. She denies n/v or vision changes. K 3.3, Mag 1.5. TTE resulted, EF 25%, severe LV systolic dysfunction with regional variation. No LV thrombus seen. Mild MR, Mild TR, Mild-moderate NV, mild phtn. Objective Vital Signs, Last 4 Hours Temp Pulse Resp BP Pulse Ox 08/18/17 08:30 83 08/18/17 07:22 97.9 F 81 20 139/92 96 Vital Signs Temp Pulse Resp BP Pulse Ox 08/18/17 08:30 83 08/18/17 07:22 97.9 F 81 20 139/92 96 08/18/17 05:35 65 08/18/17 04:26 98.4 F 66 16 116/81 92 08/18/17 00:21 65 08/17/17 23:38 98.5 F 70 18 103/92 97 08/17/17 20:56 68 08/17/17 19:37 97.7 F 68 19 141/92 96 08/17/17 17:44 16 94 08/17/17 16:04 14 146/66 08/17/17 15:57 72 14 138/91 94 08/17/17 15:50 98.5 F 74 14 146/66 74 Intake and Output 08/17/17 08/18/17 08/18/17 23:59 07:59 15:59 Intake Total 240 / 240 Balance 240 / 240 Intake: Oral 240 / 240 Other: Meal Breakfast Percent of Meal Consumed 10% Blood Glucose* 125 General: Conversant, No Apparent Distress HEENT: Atraumatic, Normocephaly, Mucus Membranes Moist Neck: No JVD, Normal carotid pulses Cardiac: Reg Rate and Rhythm, Normal S1 and S2, No Murmur Lungs: Other (coarse) Neuro: Alert and responsive, No focal deficits noted Abdomen: Soft, Non-Tender Skin: Other (right radial access site healing well. No bleeding, hematoma or ecchymosis noted.) Musculoskeletal: No Chest Wall Tenderness Extremities: No Clubbing, No Cyanosis, No Edema, Normal Pulses Results 08/18/17 06:47 08/18/17 06:47 Lab Results 08/18/17 08/18/17 06:47 06:47 WBC 8.2 Hgb 10.3 L Hct 32.8 L Plt Count 328 Sodium 121 L Potassium 3.3 L Chloride 85 L Carbon Dioxide 28 BUN 8 Creatinine 0.43 L Glucose 100 Calcium 8.7 Short CBC 08/18/17 08/17/17 Range/Units 06:47 15:55 WBC 8.2 6.7 (4.3-11.1) K/mcL Hgb 10.3 L 10.2 L (11.5-15.4) g/dL Hct 32.8 L 32.5 L (35.3-44.9) % Plt Count 328 324 (140-400) K/mcL Neutrophils # 6.9 5.4 (1.6-8.9) K/mcL BMP 08/18/17 08/17/17 Range/Units 06:47 15:55 Sodium 121 L 118 L* (136-145) mEq/L Potassium 3.3 L 3.3 L (3.5-5.1) mEq/L Chloride 85 L 82 L (98-107) mEq/L Carbon Dioxide 28 25 (23-29) mEq/L BUN 8 8 (8-23) mg/dL Creatinine 0.43 L 0.48 L (0.60-1.20) mg/dL Glucose 100 110 H (70-105) mg/dL Calcium 8.7 8.6 (8.6-10.3) mg/dL Cardiac Enzymes 08/17/17 Range/Units 15:55 Troponin I 0.05 H* (< 0.04) ng/mL Impressions Echocardiogram 08/17/17 17:07 Impressions: LVEF 25%. Severe LV systolic dysfunction with regional variation. Indeterminate diastolic function. Mildly dilated left ventricle. Definity echo contrast was not used - no LV thrombus by 2-D imaging or color-flow. RV is mildly dilated with mild to moderate reduction in function. Mild mitral regurgitation. Mild tricuspid regurgitation. Mild-moderate pulmonic regurgitation. Mild pulmonary hypertension. Left Ventricular Wall Motion: Rest Echo Findings The apex, apical anterior, mid anterior, basal anterior, apical septal, mid inferior septal, basal inferior septal, apical lateral, mid anterior lateral, basal anterior lateral, mid anterior septal, mid inferior lateral, basal anterior septal and basal inferior lateral lopez were hypokinetic. The apical inferior, mid inferior and basal inferior lopez were akinetic. Findings: Study Quality * Technically adequate exam. ECG Findings * Normal sinus rhythm. Left Ventricle * LVEF 25%. * Indeterminate diastolic function. * Mildly dilated left ventricle. * Definity echo contrast was not used - no LV thrombus by 2-D imaging or color-flow. Right Ventricle * RV is mildly dilated with mild to moderate reduction in function. Left Atrium * Moderately dilated left atrium. Right Atrium * Normal right atrial size. Aortic Valve * No aortic regurgitation. * Trileaflet aortic valve. * No aortic stenosis. Mitral Valve * No mitral stenosis. * Mild mitral regurgitation. * Normal mitral valve structure. Tricuspid Valve * Mild tricuspid regurgitation. * Normal tricuspid valve structure. * Estimated RA pressure is 3 mmHg. * Estimated RVSP is 44 mmHg. * Mild pulmonary hypertension. Pulmonic Valve * Pulmonic valve is not well visualized. * No pulmonic stenosis. * Mild-moderate pulmonic regurgitation. Pulmonary Artery * Pulmonary artery not well visualized. Aorta * Normally sized aortic root. Pericardium * There is no pericardial effusion present. Device lead * A device lead was visualized in the right atrium and right ventricle. Interatrial Septum * No evidence of PFO by color Doppler. IVC * Normal IVC dimensions and inspiratory collapse. Chest X-Ray 08/18/17 10:04 IMPRESSION: 1. No active pulmonary disease. 2. COPD. 3. Cardiomegaly without overt failure. D/ / Tyler Nixon MD / Tyler Nixon MD Interpreting Provider: Tyler Nixon MD Active Medications Acetaminophen (Tylenol) 500 mg PO Q6HR PRN PRN Reason: Mild Pain Stop: 02/16/18 17:08 Aspirin (Aspirin) 81 mg PO DAILY [facility] Stop: 02/17/18 09:01 Last Admin: 08/18/17 08:39 Dose: 81 mg Clopidogrel Bisulfate (Plavix) 75 mg PO DAILY KARI Stop: 02/17/18 09:01 Last Admin: 08/18/17 08:39 Dose: 75 mg Diphenhydramine HCl (Benadryl) 25 mg PO HS PRN PRN Reason: Insomnia Stop: 02/16/18 17:10 Heparin Sodium (Porcine) (Heparin) 3,200 unit 60 unit/kg (3200 unit) IVP Q6HR PRN PRN Reason: SEE COMMENTS Stop: 02/16/18 15:59 Heparin Sodium (Porcine) (Heparin) 1,600 unit 30 unit/kg (1600 unit) IVP Q6H PRN PRN Reason: SEE COMMENTS Stop: 02/16/18 15:59 Metoprolol Succinate (Toprol Xl) 12.5 mg PO DAILY KARI Stop: 02/17/18 09:01 Last Admin: 08/18/17 08:39 Dose: 12.5 mg Nitroglycerin (Nitroglycerin) 0.4 mg SL Q5MIN PRN PRN Reason: Chest Pain Stop: 02/16/18 19:21 Ondansetron HCl (Zofran) 4 mg IVP Q6HR PRN; Protocol PRN Reason: Nausea And Vomiting Stop: 02/16/18 17:10 Oxycodone/Acetaminophen (Percocet 5/325) 1 each PO Q4HR PRN PRN Reason: Pain Stop: 02/16/18 19:21 Sacubitril/Valsartan (Entresto 49 Mg-51 Mg Tablet) 1 tab PO BID KARI Stop: 02/16/18 21:01 Last Admin: 08/18/17 08:39 Dose: 1 tab Spironolactone (Aldactone) 25 mg PO DAILY KARI Stop: 02/17/18 09:01 Last Admin: 08/18/17 08:39 Dose: 25 mg - Imaging and Cardiology Echo: report reviewed Cardiac cath: report reviewed - EKG Interpretation EKG results cardiology: other (12 hr tele AVG HR 70, SR, no significant pauses or arrhythmias noted.) Consult Discharge Plan - Plan Referrals: Drew Alaniz DO [Non-Partnered Physician] -
--- NOTE | 2017-08-18 12:07 | Internal Medicine Consult Note ---
<Yoselin Whaley - Last Filed: 08/18/17 12:50> Date of Encounter: 08/18/17 Time of Encounter: 12:05 - Assessment and plan (1) STEMI (ST elevation myocardial infarction) Current Visit: Yes Status: Acute Assessment and plan: The patient cardiac care is being managed by cardiology. The patient is currently on sq heparin. [facility] completed during this admission. Cardiac monitoring. Qualifiers: Involved coronary artery: other inferior wall coronary artery Qualified Code(s): I21.19 - ST elevation (STEMI) myocardial infarction involving other coronary artery of inferior wall (2) Hyponatremia Current Visit: Yes Status: Acute Assessment and plan: Na is currently 121. Fluid restriction Will get urine NA, Urine creatinine, and urine osmalarity Serum Na q 4 hours x 3 (3) Hypokalemia Current Visit: Yes Status: Acute Assessment and plan: Monitor labs daily Potassium replaced orally, this am. Recheck in am. Cardiac monitoring (4) COPD (chronic obstructive pulmonary disease) Current Visit: Yes Status: Acute Assessment and plan: Patient CXR showed COPD Will add albuterol med nebs q4h prn congestion/wheeze Incentive spirometry Oxygen prn Qualifiers: COPD type: unspecified COPD Qualified Code(s): J44.9 - Chronic obstructive pulmonary disease, unspecified (5) Underweight Current Visit: Yes Status: Acute Assessment and plan: Nutrition consult for possible education and po supplementation Daily weights - Time Spent With Patient Total time spent is greater than 50% in coordination of care (as documented) at patient's floor/unit and/or counseling patient: Internal Medicine - CN: HPI - Data of Consult Consult date: 08/18/17 Requesting Physician: Lawrence Triplett MD - Consult Narrative Reason for consult: Hyponatremia History of present illness: Ms. Jensen is a 67 year old female who presented to hospital with shortness of breath and ultimately a STEMI. Patient was admitted to cardiology and was started on heparin. She had a left heart catheter while inpatient. Patient has history of heart failure, COPD (patient reported), CAD, and underweight. Appreciate cardiology consult request from hospitalist regarding patient's hyponatremia. On admission patient's sodium was 118, currently 121 after being fluid restricted. Will get urine sodium, urine creatinine and urine osmolarity now. Serum sodiums every 4 hours until corrected. Patient alert and oriented 2, with some disorientation which apparently is her baseline. Patient lives at home with family who cares for her. The patient indicated she is incontinent of urine. Neuro check completed, no focal deficits noted. Bilateral lung sounds, anterior and posterior with congestion, wheezes and rhonchi. She reports a cough with yellow sputum. Added albuterol inhalation every 4 hours when necessary and IS as scheduled. Past Med Surg Social Fam HX - Past Medical History Medical history: CHF, COPD, coronary artery disease, CVA, hyperlipidemia, hypertension Psychiatric history: no psych history - Social History Smoking Status: Current every day smoker Smokeless Tobacco Status: No Alcohol use: rarely Drug use: none - Constitutional Constitutional: weakness - EENT Eyes: no blurry vision, no change in vision Nose, mouth and throat: no nasal congestion, no nasal discharge - Cardiovascular Cardiovascular ROS IM: no chest pain, no lightheadedness - Respiratory Respiratory: cough, wheezing, chest congestion, excessive phlegm production, change in phlegm color (Re[orts yellow phlegm) - Gastrointestinal Gastrointestinal: no abdominal pain, no heartburn - Musculoskeletal Musculoskeletal ROS IM: muscle weakness - Integumentary Integumentary IM: erythema (Some bruising noted to extremities, likely due to venipunctures) - Neurological Neurological ROS: confusion, weakness - Endocrine Endocrine IM: fatigue, polyuria (Patient reported) Internal Medicine - CN: Meds RX: Clopidogrel [Plavix] 75 mg PO DAILY 08/17/17 [History] RX: Furosemide [Lasix] 20 mg PO DAILY 08/17/17 [History] RX: Metoprolol XL (24 HR) Succ [Toprol Xl] 12.5 mg PO DAILY 08/17/17 [History] RX: Omeprazole [PriLOSEC] 20 mg PO DAILY 08/17/17 [History] RX: Sacubitril/Valsartan [Entresto 24 mg-26 mg Tablet] 1 tab PO BID 08/17/17 [ History] RX: Spironolactone [Aldactone] 25 mg PO DAILY 08/17/17 [History] 3 Allergy/AdvReac Type Severity Reaction Status Date / Time No Known Allergies Allergy Verified 08/17/17 15:52 Internal Medicine - CN: Exam - Constitutional Vitals: Temp Pulse Resp BP Pulse Ox 98.9 F 71 20 140/68 97 08/18/17 11:04 08/18/17 11:04 08/18/17 11:04 08/18/17 11:04 08/18/17 11:04 General appearance IM: Present: cooperative, A&O X 3, underweight - Head Head exam: Present: atraumatic, normal inspection - Eye Pupils: Present: PERRL - Neck Neck exam general surgery: Present: normal inspection. Absent: tenderness - Respiratory Respiratory exam: Present: decreased breath sounds, rhonchi, wheezes - Cardiovascular Cardiovascular exam IM: Present: distant heart sounds, RRR, +S1 - GI/Abdominal GI/Abdominal exam IM: Present: normal bowel sounds, soft. Absent: distended - Extremities Exam Extremities exam IM: Present: normal capillary refill, normal inspection, radial pulses palpable and symmetrical - Neurological Exam Neurological exam: Present: CN II-XII intact, strengths equal and symetr throughout (Generalized weakness) - Skin Skin exam IM: Present: erythema Internal Medicine - CN: Reslt - Labs CBC & Chem 7: 08/18/17 06:47 08/18/17 06:47 Labs: Short CBC 08/18/17 Range/Units 06:47 WBC 8.2 (4.3-11.1) K/mcL Hgb 10.3 L (11.5-15.4) g/dL Hct 32.8 L (35.3-44.9) % Plt Count 328 (140-400) K/mcL Neutrophils # 6.9 (1.6-8.9) K/mcL [facility] 08/18/17 06:47 Sodium 121 L Potassium 3.3 L Chloride 85 L Carbon Dioxide 28 BUN 8 Creatinine 0.43 L Glucose 100 Calcium 8.7 - ABG Interpretation ABG results: PT/INR, D-dimer PT 12.5 Seconds (9.4-12.1) H 08/17/17 15:55 - Impressions Impressions Echocardiogram 08/17/17 17:07 Impressions: LVEF 25%. Severe LV systolic dysfunction with regional variation. Indeterminate diastolic function. Mildly dilated left ventricle. Definity echo contrast was not used - no LV thrombus by 2-D imaging or color-flow. RV is mildly dilated with mild to moderate reduction in function. Mild mitral regurgitation. Mild tricuspid regurgitation. Mild-moderate pulmonic regurgitation. Mild pulmonary hypertension. Left Ventricular Wall Motion: Rest Echo Findings The apex, apical anterior, mid anterior, basal anterior, apical septal, mid inferior septal, basal inferior septal, apical lateral, mid anterior lateral, basal anterior lateral, mid anterior septal, mid inferior lateral, basal anterior septal and basal inferior lateral lopez were hypokinetic. The apical inferior, mid inferior and basal inferior lopez were akinetic. Findings: Study Quality * Technically adequate exam. ECG Findings * Normal sinus rhythm. Left Ventricle * LVEF 25%. * Indeterminate diastolic function. * Mildly dilated left ventricle. * Definity echo contrast was not used - no LV thrombus by 2-D imaging or color-flow. Right Ventricle * RV is mildly dilated with mild to moderate reduction in function. Left Atrium * Moderately dilated left atrium. Right Atrium * Normal right atrial size. Aortic Valve * No aortic regurgitation. * Trileaflet aortic valve. * No aortic stenosis. Mitral Valve * No mitral stenosis. * Mild mitral regurgitation. * Normal mitral valve structure. Tricuspid Valve * Mild tricuspid regurgitation. * Normal tricuspid valve structure. * Estimated RA pressure is 3 mmHg. * Estimated RVSP is 44 mmHg. * Mild pulmonary hypertension. Pulmonic Valve * Pulmonic valve is not well visualized. * No pulmonic stenosis. * Mild-moderate pulmonic regurgitation. Pulmonary Artery * Pulmonary artery not well visualized. Aorta * Normally sized aortic root. Pericardium * There is no pericardial effusion present. Device lead * A device lead was visualized in the right atrium and right ventricle. Interatrial Septum * No evidence of PFO by color Doppler. IVC * Normal IVC dimensions and inspiratory collapse. Chest X-Ray 08/18/17 10:04 IMPRESSION: 1. No active pulmonary disease. 2. COPD. 3. Cardiomegaly without overt failure. D/ / Tyler Nixon MD / Tyler Nixon MD Interpreting Provider: Tyler Nixon MD Consult Discharge Plan - Plan Referrals: Humberto Soliman, LYLA [Advanced Practice Nurse] - (Office will call patient at home with follow up appointment) Drew Alaniz DO [Non-Partnered Physician] - 09/01/17 10:00 am (this appointment is with Dr. Mariah Alaniz does not have anything available) <Sterling Lang P - Last Filed: 08/18/17 15:59> Date of Encounter: 08/18/17 - Time Spent With Patient Total time spent is greater than 50% in coordination of care (as documented) at patient's floor/unit and/or counseling patient: Internal Medicine - CN: HPI - Data of Consult Requesting Physician: Lawrence Triplett MD - Consult Narrative History of present illness: Ms. Jensen is a 67 year old female Internal Medicine - CN: Exam - Constitutional Vitals: Temp Pulse Resp BP Pulse Ox 98.9 F 64 20 140/68 97 08/18/17 11:04 08/18/17 12:04 08/18/17 11:04 08/18/17 11:04 08/18/17 11:04 Internal Medicine - CN: Reslt - Labs CBC & Chem 7: 08/18/17 06:47 08/18/17 14:06 Labs: Short CBC 08/18/17 Range/Units 06:47 WBC 8.2 (4.3-11.1) K/mcL Hgb 10.3 L (11.5-15.4) g/dL Hct 32.8 L (35.3-44.9) % Plt Count 328 (140-400) K/mcL Neutrophils # 6.9 (1.6-8.9) K/mcL BMP 08/18/17 08/18/17 06:47 14:06 Sodium 121 L 119 L* Potassium 3.3 L Chloride 85 L Carbon Dioxide 28 BUN 8 Creatinine 0.43 L Glucose 100 Calcium 8.7 - ABG Interpretation ABG results: PT/INR, D-dimer PT 12.5 Seconds (9.4-12.1) H 08/17/17 15:55 - Impressions Impressions Echocardiogram 08/17/17 17:07 Impressions: LVEF 25%. Severe LV systolic dysfunction with regional variation. Indeterminate diastolic function. Mildly dilated left ventricle. Definity echo contrast was not used - no LV thrombus by 2-D imaging or color-flow. RV is mildly dilated with mild to moderate reduction in function. Mild mitral regurgitation. Mild tricuspid regurgitation. Mild-moderate pulmonic regurgitation. Mild pulmonary hypertension. Left Ventricular Wall Motion: Rest Echo Findings The apex, apical anterior, mid anterior, basal anterior, apical septal, mid inferior septal, basal inferior septal, apical lateral, mid anterior lateral, basal anterior lateral, mid anterior septal, mid inferior lateral, basal anterior septal and basal inferior lateral lopez were hypokinetic. The apical inferior, mid inferior and basal inferior lopez were akinetic. Findings: Study Quality * Technically adequate exam. ECG Findings * Normal sinus rhythm. Left Ventricle * LVEF 25%. * Indeterminate diastolic function. * Mildly dilated left ventricle. * Definity echo contrast was not used - no LV thrombus by 2-D imaging or color-flow. Right Ventricle * RV is mildly dilated with mild to moderate reduction in function. Left Atrium * Moderately dilated left atrium. Right Atrium * Normal right atrial size. Aortic Valve * No aortic regurgitation. * Trileaflet aortic valve. * No aortic stenosis. Mitral Valve * No mitral stenosis. * Mild mitral regurgitation. * Normal mitral valve structure. Tricuspid Valve * Mild tricuspid regurgitation. * Normal tricuspid valve structure. * Estimated RA pressure is 3 mmHg. * Estimated RVSP is 44 mmHg. * Mild pulmonary hypertension. Pulmonic Valve * Pulmonic valve is not well visualized. * No pulmonic stenosis. * Mild-moderate pulmonic regurgitation. Pulmonary Artery * Pulmonary artery not well visualized. Aorta * Normally sized aortic root. Pericardium * There is no pericardial effusion present. Device lead * A device lead was visualized in the right atrium and right ventricle. Interatrial Septum * No evidence of PFO by color Doppler. IVC * Normal IVC dimensions and inspiratory collapse. Chest X-Ray 08/18/17 10:04 IMPRESSION: 1. No active pulmonary disease. 2. COPD. 3. Cardiomegaly without overt failure. D/ / Tyler Nixon MD / Tyler Nixon MD Interpreting Provider: Tyler Nixon MD - Attending Attestation I have independently seen and evaluated the patient. I have performed my own physical examination. I have discussed case with admitting [facility]. I agree with her assessment and plan as documented in her consultation note. Briefly, patient was admitted by cardiology for NSTEMI. She has had hyponatremia and hypokalemia. She is s/p cath with no intervention. Na improved from 118 to 121 today. She has some generalized weakness. She states that she came in for confusion, but confusion is better now. She is A&O to person only. No other neurological abnormalities or seizures. She states that she "feels good" today. We were consulted to manage hyponatremia. Patient is currently in step down unit. We will do neurochecks and sodium checks Q4H. Fluid restrict to 2L/ day. Obtain urine labs. Consider low dose IV NS boluses if Na drops; be careful due to CHF history and currently holding lasix. Monitor strict I&Os. Recheck BMP in AM. Continue shelter monitor. Sterling Lang MD
[2017-08-18] MEDS: Magnesium Oxide 400 MG TABLET PO SCH ×2 (12:11→20:43)
[2017-08-18] MEDS ORDERED: 0.9 % Sodium Chloride 500 ML IVC SCH (15:45)
[2017-08-18] MEDS: Albuterol 2.5 MG/3 ML NEBULIZER IH SCH ×3 (16:17→23:00)
[2017-08-18] MEDS: *HR* Heparin 5,000 UNIT/ML VIAL SQ SCH (17:15)
--- NOTE | 2017-08-18 19:29 | Electrocardiograph Report ---
[address] [place] [address] Test Date: 2017-08-17 Pat Name: Allyn Jensen Department: 103 Room: 2N03 Gender: F [employer]: : 1950 Requested By: Andrew Emery Order Number: [id number] Reading MD: Lawrence Triplett Measurements Intervals [place] Rate: 70 P: 74 MS: 165 QRS: -32 QRSD: 121 T: 81 QT: 448 QTc: 469 Interpretive Statements SINUS RHYTHM LEFT ATRIAL ENLARGEMENT LEFT VENTRICULAR HYPERTROPHY AND ST-T CHANGE INFERIOR MYOCARDIAL INFARCTION, AGE UNDETERMINED Electronically Signed On 08-18-2017 19:28:21 EDT by Lawrence Triplett
[2017-08-19] MEDS: Albuterol 2.5 MG/3 ML NEBULIZER IH SCH ×6 (03:33→23:26)
[2017-08-19] MEDS: *HR* Heparin 5,000 UNIT/ML VIAL SQ SCH ×2 (06:38→16:47)
[2017-08-19 06:51] LABS: Bilirubin,Urine Negative (Negative); Blood,Urine Moderate (Negative); Clarity,Urine Cloudy (Clear); Color,Urine Yellow (Yellow); Glucose,Urine (UA) Normal (Normal); Ketones,Urine Negative (Negative); Leukocyte Esterase,Urine Large (Negative); Nitrite,Urine Negative (Negative); PH,Urine 6.5 pH Units (5.0-8.0); Protein,Urine 30 mg/dL (Neg-Trace); Specific Gravity,Urine 1.019 (1.010-1.025); Urobilinogen,Urine Normal (Normal)
[2017-08-19 06:53] LABS: Bacteria,Urine None Seen per hpf (None-Few); Hyaline Casts,Urine None Seen per lpf (None-Few); RBC,Urine 15-30 per hpf (0-3); Squamous Epithelial Cell,Urine Moderate per lpf (None-Few); WBC,Urine TNTC per hpf (0-3)
[2017-08-19] MEDS: Metoprolol XL (24 HR) Succ 25 MG TAB.ER.24H PO SCH (07:57)
[2017-08-19] MEDS: Aspirin 81 MG TAB.CHEW PO SCH (07:57)
[2017-08-19] MEDS: Magnesium Oxide 400 MG TABLET PO SCH ×2 (07:57→21:29)
[2017-08-19] MEDS: Spironolactone 25 MG TABLET PO SCH (07:57)
[2017-08-19] MEDS: SACUBITRIL/VALSARTAN 49/51 MG TABLET PO SCH ×2 (07:57→21:29)
[2017-08-19 08:14] LABS: Basophils % 0.3 %; Eosinophils % 0.4 %; Hematocrit 36.2 % (35.3-44.9); Hemoglobin 11.1 g/dL (11.5-15.4); Immature Granulocytes % 0.4 % (0-4); Lymphocytes # 0.7 K/mcL (0.6-4.6); Lymphocytes % 9.2 %; Mean Corpuscular HGB Conc 30.7 g/dL (31.6-35.5); Mean Corpuscular Hemoglobin 21.1 pg (28.0-33.3); Mean Platelet Volume 9.8 fL (9.4-12.4); Monocytes # 0.8 K/mcL (0.0-1.3); Monocytes % 10.3 %; Neutrophils # 5.8 K/mcL (1.6-8.9); Platelet Count 375 K/mcL (140-400); Red Blood Count 5.25 M/mcL (3.82-4.97); Red Cell Distribution Width 18.8 % (11.5-14.5); Segmented Neutrophils % 79.4 %
[2017-08-19 08:52] LABS: BUN/Creatinine Ratio 15 (6-26); Blood Urea Nitrogen 8 mg/dL (8-23); Carbon Dioxide 28 mEq/L (23-29); Chloride 88 mEq/L (98-107); Glucose 92 mg/dL (70-105); Osmolality,Calculated 254 (280-300); Potassium 4.3 mEq/L (3.5-5.1); Sodium 123 mEq/L (136-145); eGFR For African Americans > 60 (> 60); eGFR For Non-African Americans > 60 (> 60)
[2017-08-19 09:06] LABS: Microcytosis Present (Not Present); Platelet Estimate Normal (Normal)
[2017-08-19] MEDS: cefTRIAXone 1,000 MG in Water for inj. (sterile) 20 ML 10 ML IVP SCH (10:50)
[2017-08-19] MEDS: 0.9 % Sodium Chloride 1,000 ML IVC SCH (10:50)
--- NOTE | 2017-08-19 13:43 | Cardiology Progress Note ---
Date of Encounter: 08/19/17 Time of Encounter: 13:40 Assessment and Plan (1) STEMI (ST elevation myocardial infarction) Current Visit: Yes Status: Ruled-out Presenting EKG was concerning for STEMI, ruled out. Able to obtain old EKG from previous facility with inferior ST changes similar to previous. LHC revealed ipsilateral/contralateral collaterals supplying RCA with 100% ISR of mid RCA. Right radial access site healing well. No bleeding, hematoma or ecchymosis noted. Patient denies chest pain this AM, reports just "not feeling well". TTE EF 25%, severe LV systolic dysfunction with regional variation. No LV thrombus seen. Mild MR, Mild TR, Mild-moderate MO, mild phtn. Known CMP with ICD in place. Discussed with hospitalist. No active acute cardiac issues. Will transfer care to hospitalist service. Cardiology signing off. Reconsult PRN. Follow-up with established application systems administrator at [facility] as outpt in 2-3 weeks. Qualifiers: Involved coronary artery: other inferior wall coronary artery Qualified Code(s): I21.19 - ST elevation (STEMI) myocardial infarction involving other coronary artery of inferior wall (2) Hyponatremia Current Visit: Yes Status: Acute Na 118 on admission, 122 today. Hospitalist following, fluid restriction ordered. (3) Cardiomyopathy Current Visit: Yes Status: Acute TTE EF 25%, no evidence of LV thrombus Known CMP with ICD in place. Euvolemic on exam. CXR no acute findings. Continue BB, Entresto, Aldactone. Qualifiers: Cardiomyopathy type: ischemic Qualified Code(s): I25.5 - Ischemic cardiomyopathy (4) CAD (coronary artery disease) Current Visit: Yes Status: Acute Hx of CAD and PCI. LHC as above. ASA, Plavix, BB, added statin. Qualifiers: Coronary Disease-Associated Artery/Lesion type: [place] artery [place] vs. transplanted heart: [place] heart Associated angina: angina presence unspecified Qualified Code(s): I25.10 - Atherosclerotic heart disease of [place] coronary artery without angina pectoris Discussion w patient/family: The assessment and plan as outlined above was discussed with the patient and/or family members who expressed understanding and agreement. All questions were answered. Thank you for involving us in the care of your patient. Please call with any questions. I will discuss all the above with Dr. Mccrary and make changes as necessary. Subjective Principal diagnosis: Chest pain Interval history: Pt reports feeling better today. Dyspnea improved. Denies chest pain. Na 123. UA urine culture was indicated--preliminary culture no growth. Hospitalist currently managing hyponatremia and COPD. Objective Vital Signs, Last 4 Hours Temp Pulse Resp BP Pulse Ox 08/19/17 11:30 97.8 F 64 16 134/69 100 08/19/17 11:18 16 97 Vital Signs Temp Pulse Resp BP Pulse Ox 08/19/17 11:30 97.8 F 64 16 134/69 100 08/19/17 11:18 16 97 08/19/17 07:44 97.7 F 70 16 148/83 100 08/19/17 07:34 16 97 08/19/17 04:17 97.6 F 70 16 148/71 96 08/19/17 04:15 97.6 F 70 16 148/71 96 08/19/17 03:33 17 92 08/19/17 00:15 97.8 F 64 17 118/67 98 08/18/17 23:00 17 118/67 98 08/18/17 22:52 97.8 F 64 18 118/67 98 08/18/17 20:48 71 08/18/17 20:00 18 160/76 97 08/18/17 19:09 98.2 F 70 18 160/76 97 08/18/17 17:18 72 08/18/17 16:19 18 97 08/18/17 15:58 98.1 F 72 16 148/77 97 Intake and Output 08/18/17 08/19/17 08/19/17 23:59 07:59 15:59 Intake Total 300 / 300 Balance 300 / 300 Intake: Oral 300 / 300 Other: Meal Breakfast Percent of Meal Consumed 90% Stool Size Small Stool Consistency soft Stool Color Black General: Conversant, No Apparent Distress HEENT: Atraumatic, Normocephaly, Mucus Membranes Moist Neck: No JVD, Normal carotid pulses Cardiac: Reg Rate and Rhythm, Normal S1 and S2, No Murmur Lungs: Other (wheezes) Neuro: Alert and responsive, No focal deficits noted Abdomen: Soft, Non-Tender Skin: No rashes noted on visualized skin Musculoskeletal: No Chest Wall Tenderness Extremities: No Clubbing, No Cyanosis, No Edema, Normal Pulses Results 08/19/17 07:54 08/19/17 07:54 Lab Results 08/18/17 08/18/17 08/18/17 14:06 18:11 22:08 WBC Hgb Hct Plt Count Sodium 119 L* 131 L D 121 L D Potassium Chloride Carbon Dioxide BUN Creatinine Glucose Calcium 08/19/17 08/19/17 07:54 07:54 WBC 7.3 Hgb 11.1 L Hct 36.2 Plt Count 375 Sodium 123 L Potassium 4.3 Chloride 88 L Carbon Dioxide 28 BUN 8 Creatinine 0.52 L Glucose 92 Calcium 9.0 Short CBC 08/19/17 Range/Units 07:54 WBC 7.3 (4.3-11.1) K/mcL Hgb 11.1 L (11.5-15.4) g/dL Hct 36.2 (35.3-44.9) % Plt Count 375 (140-400) K/mcL Neutrophils # 5.8 (1.6-8.9) K/mcL BMP 08/19/17 08/18/17 08/18/17 Range/Units 07:54 22:08 18:11 Sodium 123 L 121 L D 131 L D (136-145) mEq/L Potassium 4.3 (3.5-5.1) mEq/L Chloride 88 L (98-107) mEq/L Carbon Dioxide 28 (23-29) mEq/L BUN 8 (8-23) mg/dL Creatinine 0.52 L (0.60-1.20) mg/dL Glucose 92 (70-105) mg/dL Calcium 9.0 (8.6-10.3) mg/dL 08/18/17 Range/Units 14:06 Sodium 119 L* (136-145) mEq/L Potassium (3.5-5.1) mEq/L Chloride (98-107) mEq/L Carbon Dioxide (23-29) mEq/L BUN (8-23) mg/dL Creatinine (0.60-1.20) mg/dL Glucose (70-105) mg/dL Calcium (8.6-10.3) mg/dL Urine 08/19/17 Range/Units 05:05 Urine Color Yellow (Yellow) Urine Clarity Cloudy A (Clear) Urine pH 6.5 (5.0-8.0) pH Units Ur Specific [place] 1.019 (1.010-1.025) Urine Protein 30 H (Neg-Trace) mg/dL Urine Glucose (UA) Normal (Normal) mg/dL Active Medications Acetaminophen (Tylenol) 500 mg PO Q6HR PRN PRN Reason: Mild Pain Stop: 02/16/18 17:08 Albuterol Sulfate (Proventil Neb) 2.5 mg IH [id number] KARI PRN Reason: Protocol Stop: 02/17/18 16:01 Last Admin: 08/19/17 11:18 Dose: 2.5 mg Aspirin (Aspirin) 81 mg PO DAILY KARI Stop: 02/17/18 09:01 Last Admin: 08/19/17 07:57 Dose: 81 mg Atorvastatin Calcium (Lipitor) 40 mg PO HS KARI Stop: 02/17/18 21:01 Last Admin: 08/18/17 20:43 Dose: 40 mg Clopidogrel Bisulfate (Plavix) 75 mg PO DAILY [facility] Stop: 02/17/18 09:01 Last Admin: 08/19/17 07:57 Dose: 75 mg Diphenhydramine HCl (Benadryl) 25 mg PO HS PRN PRN Reason: Insomnia Stop: 02/16/18 17:10 Heparin Sodium (Porcine) (Heparin) 5,000 unit SQ Q12HCO [facility] Stop: 02/17/18 18:01 Last Admin: 08/19/17 06:38 Dose: 5,000 unit Sodium Chloride (0.9 % Sodium Chloride) 1,000 mls @ 75 mls/hr IVC .[id number] [facility] Stop: 02/18/18 10:01 Last Admin: 08/19/17 10:50 Dose: 75 mls/hr Ceftriaxone Sodium 1,000 mg/ (Sterile Water) 10 mls @ 600 mls/hr IVP DAILY [facility] Stop: 02/18/18 11:01 Last Admin: 08/19/17 10:50 Dose: 600 mls/hr Magnesium Oxide (Mag-Ox) 400 mg PO BID KARI PRN Reason: Protocol Stop: 02/17/18 11:16 Last Admin: 08/19/17 07:57 Dose: 400 mg Metoprolol Succinate (Toprol Xl) 12.5 mg PO DAILY [facility] Stop: 02/17/18 09:01 Last Admin: 08/19/17 07:57 Dose: 12.5 mg Nitroglycerin (Nitroglycerin) 0.4 mg SL Q5MIN PRN PRN Reason: Chest Pain Stop: 02/16/18 19:21 Ondansetron HCl (Zofran) 4 mg IVP Q6HR PRN; Protocol PRN Reason: Nausea And Vomiting Stop: 02/16/18 17:10 Oxycodone/Acetaminophen (Percocet 5/325) 1 each PO Q4HR PRN PRN Reason: Pain Stop: 02/16/18 19:21 Sacubitril/Valsartan (Entresto 49 Mg-51 Mg Tablet) 1 tab PO BID KARI Stop: 02/16/18 21:01 Last Admin: 08/19/17 07:57 Dose: 1 tab Spironolactone (Aldactone) 25 mg PO DAILY KARI Stop: 02/17/18 09:01 Last Admin: 08/19/17 07:57 Dose: 25 mg - Imaging and Cardiology Echo: report reviewed Cardiac cath: report reviewed - EKG Interpretation EKG results cardiology: other (12 hr tele AVG HR 67, SR, no significant pauses or arrhythmias) Consult Discharge Plan - Plan Additional Instructions: RISK FACTORS: STOP SMOKING: If you smoke, STOP. Smoking or tobacco use significantly increases your risk of heart disease because nicotine causes the arteries to narrow or constrict. It also causes fats to stick to the artery. Your chances of having a heart attack are greatly increased if you continue to smoke. For more information, call the education line for smoking cessation 7-604-MKJJOGT EAT A LOW FAT/CHOLESTEROL/SODIUM DIET: This diet may help reduce your chances of having a heart attack. LIFTING: With affected extremity: Avoid bending, pushing off and lifting more than 2 pounds for 24 hours The following 48 hours, avoid lifting anything more than 5 pounds Avoid strenuous activity or repetitive motions ACTIVITY: You may walk or climb stairs as tolerated You can resume sexual activity as tolerated In general, you are encouraged to engage in a minimum of 30 minutes or more of moderate intensity physical activity, such as brisk walking, daily or at least 3 -4 times weekly BATHING Do not submerge the site into water (bath tub, hot tub, swimming pool, dishes) for 1 week. This can be a source for infection into the blood stream. You may shower after 24 hours SITE CARE: After 24 hours, you may remove the dressing and leave the site open to air. Keep the site clean and dry. Clean gently and pat dry. You can expect bruising and tenderness that gradually resolve within a week or two. Return to work as instructed per your physician Resume driving as instructed per physician Keep all scheduled follow up appointments Resume medications as instructed IMPORTANT: If prescribed a Platelet Aggregation Inhibitor such as, Plavix, Brilinta or Effient: Duration of therapy is minimum one year These medications are often used in combination with Aspirin in prevention of future heart attacks Never discontinue unless consult with your Upkeep Worker STROKE (CVA) Risk factors for a stroke are: Age, cigarette smoking, diabetes, excessive alcohol consumption, family history, high blood pressure, overweight, physical inactivity, prior stroke, heart attack, diagnosis of carotid artery stenosis or other artery disease. Warning signs: Sudden numbness or weakness of the face, arm or leg; especially on one side of the body, sudden confusion, trouble speaking or understanding, sudden trouble seeing in one or both eyes, sudden trouble walking, dizziness, loss of balance or coordination, sudden severe headache with no cause. Call 911 or go to the Emergency Room. CONGESTIVE HEART FAILURE: If you have been diagnosed with Congestive Heart Failure (CHF) and your symptoms return, make an appointment with your physician Weigh yourself daily. Notify your physician if you have a weight gain of two or more pounds in one day or five or more pounds in one week. If you experience any difficulty breathing, please call 911 BLEEDING: Although the risk of bleeding is minimal, it can happen. If you have any bleeding from the site, apply firm pressure above the puncture site for 10-15 minutes. If the bleeding does not stop, continue manual pressure and call 911 Contact [facility] ( ) if: You develop a fever greater than 101 degrees Fahrenheit Your site becomes reddened or has any drainage You have an increase in pain or burning at the site or if a large knot forms at the site. If you experience chest pain, shortness of breath, dizziness, or extreme tiredness, stop the activity and rest. Please notify [facility] office if you experience any of these symptoms and they are not relieved by rest please call 911! Referrals: Humberto Soliman, CASINO MANAGER [Advanced Practice Nurse] - (Office will call patient at home with follow up appointment) Drew Alaniz, DO [Non-Partnered Physician] - 09/01/17 10:00 am (this appointment is with Dr. Mariah Alaniz does not have anything available)
--- NOTE | 2017-08-19 16:56 | Internal Med Progress Note ---
Date of Encounter: 08/19/17 Time of Encounter: 10:50 - Assessment and plan (1) STEMI (ST elevation myocardial infarction) Current Visit: Yes Status: Ruled-out Assessment and plan: Patient hospitalized initially for ST elevation [place] based on EKG but no new lesion identified on left heart catheterization. She did have RCA with 100% in- stent restenosis of mid RCA but patient did have multiple collaterals supplying this territory. Currently on Aspirin and Plavix. Qualifiers: Involved coronary artery: other inferior wall coronary artery Qualified Code(s): I21.19 - ST elevation (STEMI) myocardial infarction involving other coronary artery of inferior wall (2) Hyponatremia Current Visit: Yes Status: Acute Assessment and plan: Urine sodium less than 10. As such I do not believe this is SIADH. Could be hypovolemic hyponatremia or diuretic-related hyponatremia due to use of spironolactone. Will gently hydrate with normal saline and monitor sodium levels. If hyponatremia persists or worsens, we will consult nephrology for further evaluation. I will also hold spironolactone for now. (3) Cardiomyopathy Current Visit: Yes Status: Chronic Assessment and plan: EF of 25% on TTE. Patient already has AICD in place. Will continue beta alayna and entresto but hold spironolactone for now due to hyponatremia. Qualifiers: Cardiomyopathy type: ischemic Qualified Code(s): I25.5 - Ischemic cardiomyopathy (4) CAD (coronary artery disease) Current Visit: Yes Status: Chronic Assessment and plan: Continue aspirin, Plavix. No chest pain at this time. Qualifiers: Coronary Disease-Associated Artery/Lesion type: [place] artery [place] vs. transplanted heart: [place] heart Associated angina: angina presence unspecified Qualified Code(s): I25.10 - Atherosclerotic heart disease of [place] coronary artery without angina pectoris (5) COPD (chronic obstructive pulmonary disease) Current Visit: Yes Status: Chronic Assessment and plan: Patient does have bilateral wheezing. We will use bronchodilators as needed. She is also on supplemental oxygen and is consistently requiring it. We will evaluate for O2 qualification. She does use home oxygen but only at bedtime. Qualifiers: COPD type: unspecified COPD Qualified Code(s): J44.9 - Chronic obstructive pulmonary disease, unspecified - Time Spent With Patient Total time spent is greater than 50% in coordination of care (as documented) at patient's floor/unit and/or counseling patient: - Subjective Interval history: Patient is awake and alert. Feels better overall. Denies any chest pain or palpitations. Denies any dizziness or lightheadedness. She is requiring supplemental oxygen - Constitutional Vitals: Temp Pulse Resp BP Pulse Ox 97.8 F 68 16 144/79 98 08/19/17 16:45 08/19/17 16:45 08/19/17 16:45 08/19/17 16:45 08/19/17 16:45 General appearance: Present: cooperative, A&O X 3, underweight, answers questions appropriately - Neck Neck exam general surgery: Present: supple, trachea midline. Absent: lymphadenopathy - Respiratory Respiratory exam: Present: CTAB. Absent: accessory muscle use, rales, rhonchi, wheezes - Cardiovascular Cardiovascular exam: Present: RRR, +S1, +S2. Absent: diastolic murmur, gallop, rubs, systolic murmur - GI/Abdominal GI/Abdominal exam: Present: normal bowel sounds, soft, no peritoneal signs. Absent: distended, tenderness - Extremities Exam Extremities exam: Present: warm, radial pulses palpable and symmetrical. Absent : calf tenderness, cyanotic, pedal edema - Neurological Exam Neurological exam: Present: alert, oriented X3, no focal deficits. Absent: facial droop, speech deficit Internal Medicine: Result - Labs CBC & Chem 7: 08/19/17 07:54 08/19/17 15:35 Labs: Short CBC 08/19/17 Range/Units 07:54 WBC 7.3 (4.3-11.1) K/mcL Hgb 11.1 L (11.5-15.4) g/dL Hct 36.2 (35.3-44.9) % Plt Count 375 (140-400) K/mcL Neutrophils # 5.8 (1.6-8.9) K/mcL BMP 08/18/17 08/18/17 08/19/17 18:11 22:08 07:54 Sodium 131 L D 121 L D 123 L Potassium 4.3 Chloride 88 L Carbon Dioxide 28 BUN 8 Creatinine 0.52 L Glucose 92 Calcium 9.0 08/19/17 15:35 Sodium 121 L Potassium Chloride Carbon Dioxide BUN Creatinine Glucose Calcium Urine 08/19/17 Range/Units 05:05 Urine Color Yellow (Yellow) Urine Clarity Cloudy A (Clear) Urine pH 6.5 (5.0-8.0) pH Units Ur Specific [place] 1.019 (1.010-1.025) Urine Protein 30 H (Neg-Trace) mg/dL Urine Glucose (UA) Normal (Normal) mg/dL - ABG Interpretation ABG results: PT/INR, D-dimer PT 12.5 Seconds (9.4-12.1) H 08/17/17 15:55 Consult Discharge Plan - Plan Additional Instructions: RISK FACTORS: STOP SMOKING: If you smoke, STOP. Smoking or tobacco use significantly increases your risk of heart disease because nicotine causes the arteries to narrow or constrict. It also causes fats to stick to the artery. Your chances of having a heart attack are greatly increased if you continue to smoke. For more information, call the education line for smoking cessation 2-144-HJBQCVL EAT A LOW FAT/CHOLESTEROL/SODIUM DIET: This diet may help reduce your chances of having a heart attack. LIFTING: With affected extremity: Avoid bending, pushing off and lifting more than 2 pounds for 24 hours The following 48 hours, avoid lifting anything more than 5 pounds Avoid strenuous activity or repetitive motions ACTIVITY: You may walk or climb stairs as tolerated You can resume sexual activity as tolerated In general, you are encouraged to engage in a minimum of 30 minutes or more of moderate intensity physical activity, such as brisk walking, daily or at least 3 -4 times weekly BATHING Do not submerge the site into water (bath tub, hot tub, swimming pool, dishes) for 1 week. This can be a source for infection into the blood stream. You may shower after 24 hours SITE CARE: After 24 hours, you may remove the dressing and leave the site open to air. Keep the site clean and dry. Clean gently and pat dry. You can expect bruising and tenderness that gradually resolve within a week or two. Return to work as instructed per your physician Resume driving as instructed per physician Keep all scheduled follow up appointments Resume medications as instructed IMPORTANT: If prescribed a Platelet Aggregation Inhibitor such as, Plavix, Brilinta or Effient: Duration of therapy is minimum one year These medications are often used in combination with Aspirin in prevention of future heart attacks Never discontinue unless consult with your Multi Care Technician STROKE (CVA) Risk factors for a stroke are: Age, cigarette smoking, diabetes, excessive alcohol consumption, family history, high blood pressure, overweight, physical inactivity, prior stroke, heart attack, diagnosis of carotid artery stenosis or other artery disease. Warning signs: Sudden numbness or weakness of the face, arm or leg; especially on one side of the body, sudden confusion, trouble speaking or understanding, sudden trouble seeing in one or both eyes, sudden trouble walking, dizziness, loss of balance or coordination, sudden severe headache with no cause. Call 911 or go to the Emergency Room. CONGESTIVE HEART FAILURE: If you have been diagnosed with Congestive Heart Failure (CHF) and your symptoms return, make an appointment with your physician Weigh yourself daily. Notify your physician if you have a weight gain of two or more pounds in one day or five or more pounds in one week. If you experience any difficulty breathing, please call 911 BLEEDING: Although the risk of bleeding is minimal, it can happen. If you have any bleeding from the site, apply firm pressure above the puncture site for 10-15 minutes. If the bleeding does not stop, continue manual pressure and call 911 Contact [facility] ( ) if: You develop a fever greater than 101 degrees Fahrenheit Your site becomes reddened or has any drainage You have an increase in pain or burning at the site or if a large knot forms at the site. If you experience chest pain, shortness of breath, dizziness, or extreme tiredness, stop the activity and rest. Please notify [facility] office if you experience any of these symptoms and they are not relieved by rest please call 911! Referrals: Humberto Soliman, LYLA [Advanced Practice Nurse] - (Office will call patient at home with follow up appointment) Drew Alaniz DO [Non-Partnered Physician] - 09/01/17 10:00 am (this appointment is with Dr. Mariah Alaniz does not have anything available)
[2017-08-20] MEDS: 0.9 % Sodium Chloride 1,000 ML IVC SCH ×2 (00:01→11:34)
[2017-08-20] MEDS: Albuterol 2.5 MG/3 ML NEBULIZER IH SCH ×5 (04:05→19:50)
[2017-08-20 04:06] LABS: Basophils % 0.3 %; Eosinophils % 0.4 %; Hematocrit 30.8 % (35.3-44.9); Immature Granulocytes % 0.1 % (0-4); Lymphocytes # 0.8 K/mcL (0.6-4.6); Mean Corpuscular HGB Conc 29.9 g/dL (31.6-35.5); Mean Corpuscular Hemoglobin 20.6 pg (28.0-33.3); Mean Corpuscular Volume 68.9 fL (83.0-100.0); Mean Platelet Volume 9.9 fL (9.4-12.4); Monocytes # 0.8 K/mcL (0.0-1.3); Neutrophils # 5.4 K/mcL (1.6-8.9); Platelet Count 331 K/mcL (140-400); Red Blood Count 4.47 M/mcL (3.82-4.97); Red Cell Distribution Width 18.7 % (11.5-14.5); Segmented Neutrophils % 77.2 %
[2017-08-20 04:08] LABS: Hemoglobin 9.2 g/dL (11.5-15.4)
[2017-08-20 04:26] LABS: BUN/Creatinine Ratio 19 (6-26); Blood Urea Nitrogen 10 mg/dL (8-23); Calcium 8.5 mg/dL (8.6-10.3); Carbon Dioxide 28 mEq/L (23-29); Chloride 89 mEq/L (98-107); Glucose 111 mg/dL (70-105); Osmolality,Calculated 254 (280-300); Potassium 4.3 mEq/L (3.5-5.1); Sodium 122 mEq/L (136-145); eGFR For African Americans > 60 (> 60); eGFR For Non-African Americans > 60 (> 60)
[2017-08-20 04:36] LABS: Platelet Estimate Normal (Normal)
[2017-08-20 04:37] LABS: Acanthocytes 1+ (Not Present); Anisocytosis 1+ (Not Present); Hypochromasia Present (Not Present); Large Platelets Present (Not Present); Microcytosis Present (Not Present); Poikilocytosis 1+ (Not Present)
[2017-08-20] MEDS: cefTRIAXone 1,000 MG in Water for inj. (sterile) 20 ML 10 ML IVP SCH (07:52)
[2017-08-20] MEDS: Metoprolol XL (24 HR) Succ 25 MG TAB.ER.24H PO SCH (07:52)
[2017-08-20] MEDS: SACUBITRIL/VALSARTAN 49/51 MG TABLET PO SCH ×2 (07:52→22:30)
[2017-08-20] MEDS: Aspirin 81 MG TAB.CHEW PO SCH (07:52)
[2017-08-20] MEDS: Magnesium Oxide 400 MG TABLET PO SCH ×2 (07:52→22:30)
[2017-08-20] MEDS: *HR* Heparin 5,000 UNIT/ML VIAL SQ SCH ×2 (07:52→16:53)
--- NOTE | 2017-08-20 11:59 | Nephrology Consult Note ---
Date of Encounter: 08/20/17 Time of Encounter: 11:05 Assessment and Plan (1) Hyponatremia Current Visit: Yes Status: Acute May have SIADH or like syndrome. Low urine sodium does not rule out SIADH. BUN and creat so low not convinced volume depleted. Agree with stopping Spironolactone. Also would avoid thiazides. Will obtain cosyntropin stim test, TSH. Would continue IV 0.9 NS at 75 cc/hr for next 24 hours. Would restrict PO fluid intake 1200 cc/24 hours. History of Present Illness - Reason for Consult hyponatremia - History of Present Illness is a 67 year old female who presentd with chest pain. Other PMH- CHF, COPD, coronary artery disease, DC, coronary stents,CVA, hyperlipidemia, hypertension,no psych history, no [employer] history. An emergent LHC was done-ipsilateral/contralateral collaterals supplying RCA with 100% ISR of mid RCA Consulted for hyponatremia, initial sodium 118. BUN 8, creat 0.48. Home diuretics spironolactone. Spironolactone was stopped, gentle IV hydration 0.9 NS 75cc/hr. Today sodium 122, BUN 10, creat 0.53. . Patient appears euvolemic. She denies prior knowledge of low sodium. Prior hospital stays at [facility] and no prior labs available. She states she has a good appetite and drinks 3 bottles of water daily and 4-5 cups of coffee and pop. She does admit LE swelling at most times, however today trace pitting. She denies any psyche history or medication. Denies recent illness, vomiting or diarrhea. Past Med Surg Social Fam HX - Past Medical History Medical history: CHF, COPD, coronary artery disease, CVA, hyperlipidemia, hypertension Psychiatric history: no psych history - Social History Smoking Status: Current every day smoker Smokeless Tobacco Status: No Alcohol use: none Drug use: none Medications and Allergies Clopidogrel [Plavix] 75 mg PO DAILY 08/17/17 [History] Furosemide [Lasix] 20 mg PO DAILY 08/17/17 [History] Metoprolol XL (24 HR) Succ [Toprol Xl] 12.5 mg PO DAILY 08/17/17 [History] Omeprazole [PriLOSEC] 20 mg PO DAILY 08/17/17 [History] Sacubitril/Valsartan [Entresto 24 mg-26 mg Tablet] 1 tab PO BID 08/17/17 [ History] Spironolactone [Aldactone] 25 mg PO DAILY 08/17/17 [History] 3 Allergy/AdvReac Type Severity Reaction Status Date / Time No Known Allergies Allergy Verified 08/17/17 15:52 Review of Systems All Systems: reviewed and no additional remarkable complaints except as stated Exam - Vital Signs Vital signs: Initial Vital Signs Temp Pulse Resp BP Pulse Ox 98.5 F 74 14 146/66 74 08/17/17 15:50 08/17/17 15:50 08/17/17 15:50 08/17/17 15:50 08/17/17 15:50 Vital Signs - Last 8 Hours Temp Pulse Resp BP Pulse Ox 08/20/17 11:19 98.3 F 72 18 128/58 98 08/20/17 10:51 18 87 08/20/17 07:38 20 96 08/20/17 07:28 98.3 F 68 16 151/67 98 08/20/17 04:07 16 96 08/20/17 03:47 97.4 F L 74 16 136/63 96 Intake and Output 08/19/17 08/20/17 08/20/17 23:59 07:59 15:59 Intake Total 120 / 120 1000 / 1000 240 / 240 Balance 120 / 120 1000 / 1000 240 / 240 Intake: IV Fluids 1000 / 1000 0.9 % Sodium Chloride 1,000 ML 1000 / 1000 @ 75 mls/hr IVC .[id number] [facility] Rx #:[id number] Oral 120 / 120 240 / 240 Other: Meal Dinner Breakfast Percent of Meal Consumed 75% 100% Stool Size Smear Stool Consistency soft Stool Characteristics Normal for Patient Stool Color Brown # Voids 1 1 # Urine Diapers 1 - General Appearance General appearance: well-developed, well-nourished, appears started age EENT: mucous membranes moist Neck: no JVD Respiratory: clear Cardiology: edema, regular rate, regular rhythm Additional Comments: trace Gastrointestinal: normoactive bowel sounds, no tenderness Integumentary: warm and dry Neurologic: alert and oriented x3 Results - Lab Results 08/20/17 03:46 08/20/17 03:46 Most recent lab results Calcium 8.5 mg/dL (8.6-10.3) L 08/20/17 03:46 Magnesium 1.5 mg/dL (1.6-2.6) L 08/17/17 15:55 Urine Creatinine 111 mg/dL 08/19/17 05:05 Urine Sodium < 10.0 mEq/L 08/19/17 05:05 Consult Discharge Plan - Plan Additional Instructions: RISK FACTORS: STOP SMOKING: If you smoke, STOP. Smoking or tobacco use significantly increases your risk of heart disease because nicotine causes the arteries to narrow or constrict. It also causes fats to stick to the artery. Your chances of having a heart attack are greatly increased if you continue to smoke. For more information, call the education line for smoking cessation 2-741-QYZRJFS EAT A LOW FAT/CHOLESTEROL/SODIUM DIET: This diet may help reduce your chances of having a heart attack. LIFTING: With affected extremity: Avoid bending, pushing off and lifting more than 2 pounds for 24 hours The following 48 hours, avoid lifting anything more than 5 pounds Avoid strenuous activity or repetitive motions ACTIVITY: You may walk or climb stairs as tolerated You can resume sexual activity as tolerated In general, you are encouraged to engage in a minimum of 30 minutes or more of moderate intensity physical activity, such as brisk walking, daily or at least 3 -4 times weekly BATHING Do not submerge the site into water (bath tub, hot tub, swimming pool, dishes) for 1 week. This can be a source for infection into the blood stream. You may shower after 24 hours SITE CARE: After 24 hours, you may remove the dressing and leave the site open to air. Keep the site clean and dry. Clean gently and pat dry. You can expect bruising and tenderness that gradually resolve within a week or two. Return to work as instructed per your physician Resume driving as instructed per physician Keep all scheduled follow up appointments Resume medications as instructed IMPORTANT: If prescribed a Platelet Aggregation Inhibitor such as, Plavix, Brilinta or Effient: Duration of therapy is minimum one year These medications are often used in combination with Aspirin in prevention of future heart attacks Never discontinue unless consult with your Medicare Contact Specialist STROKE (CVA) Risk factors for a stroke are: Age, cigarette smoking, diabetes, excessive alcohol consumption, family history, high blood pressure, overweight, physical inactivity, prior stroke, heart attack, diagnosis of carotid artery stenosis or other artery disease. Warning signs: Sudden numbness or weakness of the face, arm or leg; especially on one side of the body, sudden confusion, trouble speaking or understanding, sudden trouble seeing in one or both eyes, sudden trouble walking, dizziness, loss of balance or coordination, sudden severe headache with no cause. Call 911 or go to the Emergency Room. CONGESTIVE HEART FAILURE: If you have been diagnosed with Congestive Heart Failure (CHF) and your symptoms return, make an appointment with your physician Weigh yourself daily. Notify your physician if you have a weight gain of two or more pounds in one day or five or more pounds in one week. If you experience any difficulty breathing, please call 911 BLEEDING: Although the risk of bleeding is minimal, it can happen. If you have any bleeding from the site, apply firm pressure above the puncture site for 10-15 minutes. If the bleeding does not stop, continue manual pressure and call 911 Contact [facility] ( ) if: You develop a fever greater than 101 degrees Fahrenheit Your site becomes reddened or has any drainage You have an increase in pain or burning at the site or if a large knot forms at the site. If you experience chest pain, shortness of breath, dizziness, or extreme tiredness, stop the activity and rest. Please notify [facility] office if you experience any of these symptoms and they are not relieved by rest please call 911! Referrals: Humberto Soliman, LYLA [Advanced Practice Nurse] - (Office will call patient at home with follow up appointment) Drew Alaniz DO [Non-Partnered Physician] - 09/01/17 10:00 am (this appointment is with Dr. Mariah Alaniz does not have anything available)
[2017-08-20] MEDS ORDERED: Cosyntropin 250 MCG/2 ML VIAL IVP ONE (12:24)
--- NOTE | 2017-08-20 16:54 | Internal Med Progress Note ---
Date of Encounter: 08/20/17 Time of Encounter: 10:00 - Assessment and plan (1) Hyponatremia Current Visit: Yes Status: Acute Assessment and plan: Patient remains hyponatremic. Nephrology input appreciated. Currently on fluid restriction and normal saline infusion. Will trend sodium levels closely. Patient has also apparently been on Prozac as outpatient. Recommend holding this medication as it can cause hyponatremia also. (2) STEMI (ST elevation myocardial infarction) Current Visit: Yes Status: Ruled-out Qualifiers: Involved coronary artery: other inferior wall coronary artery Qualified Code(s): I21.19 - ST elevation (STEMI) myocardial infarction involving other coronary artery of inferior wall (3) Cardiomyopathy Current Visit: Yes Status: Chronic Assessment and plan: continue home medications. Held spironolactone due to hyponatremia. Qualifiers: Cardiomyopathy type: ischemic Qualified Code(s): I25.5 - Ischemic cardiomyopathy (4) CAD (coronary artery disease) Current Visit: Yes Status: Chronic Assessment and plan: On aspirin, statin and beta alayna. Qualifiers: Coronary Disease-Associated Artery/Lesion type: [place] artery [place] vs. transplanted heart: [place] heart Associated angina: angina presence unspecified Qualified Code(s): I25.10 - Atherosclerotic heart disease of [place] coronary artery without angina pectoris (5) COPD (chronic obstructive pulmonary disease) Current Visit: Yes Status: Chronic Assessment and plan: With chronic respiratory failure. Patient appears to require home oxygen all the time. Prescription has therefore been provided for her. Qualifiers: COPD type: unspecified COPD Qualified Code(s): J44.9 - Chronic obstructive pulmonary disease, unspecified - Time Spent With Patient Total time spent is greater than 50% in coordination of care (as documented) at patient's floor/unit and/or counseling patient: - Subjective Interval history: Patient is lying down but easily awakes. Denies any complaints at this time. No chest pain. No dizziness or lightheadedness. No palpitations. Still requiring O2 supplementation. - Constitutional Vitals: Temp Pulse Resp BP Pulse Ox 98.2 F 72 18 131/67 92 08/20/17 16:18 08/20/17 16:18 08/20/17 16:18 08/20/17 16:18 08/20/17 16:18 General appearance: Present: cooperative, A&O X 3, underweight, answers questions appropriately - Respiratory Respiratory exam: Present: prolonged expiratory phase, wheezes. Absent: accessory muscle use, rales, rhonchi - Cardiovascular Cardiovascular exam: Present: RRR, +S1, +S2. Absent: diastolic murmur, gallop, rubs, systolic murmur - GI/Abdominal GI/Abdominal exam: Present: normal bowel sounds, soft, no peritoneal signs. Absent: distended, tenderness - Extremities Exam Extremities exam: Present: warm, radial pulses palpable and symmetrical. Absent : calf tenderness, cyanotic, pedal edema - Neurological Exam Neurological exam: Present: alert, oriented X3, no focal deficits. Absent: facial droop, speech deficit Internal Medicine: Result - Labs CBC & Chem 7: 08/20/17 03:46 08/20/17 03:46 Labs: Short CBC 08/20/17 Range/Units 03:46 WBC 7.0 (4.3-11.1) K/mcL Hgb 9.2 L D (11.5-15.4) g/dL Hct 30.8 L (35.3-44.9) % Plt Count 331 (140-400) K/mcL Neutrophils # 5.4 (1.6-8.9) K/mcL BMP 08/19/17 08/20/17 19:04 03:46 Sodium 121 L 122 L Potassium 4.3 Chloride 89 L Carbon Dioxide 28 BUN 10 Creatinine 0.53 L Glucose 111 H Calcium 8.5 L Urine 08/19/17 Range/Units 05:05 Urine Color Yellow (Yellow) Urine Clarity Cloudy A (Clear) Urine pH 6.5 (5.0-8.0) pH Units Ur Specific [place] 1.019 (1.010-1.025) Urine Protein 30 H (Neg-Trace) mg/dL Urine Glucose (UA) Normal (Normal) mg/dL - ABG Interpretation ABG results: PT/INR, D-dimer PT 12.5 Seconds (9.4-12.1) H 08/17/17 15:55 Consult Discharge Plan - Plan Additional Instructions: RISK FACTORS: STOP SMOKING: If you smoke, STOP. Smoking or tobacco use significantly increases your risk of heart disease because nicotine causes the arteries to narrow or constrict. It also causes fats to stick to the artery. Your chances of having a heart attack are greatly increased if you continue to smoke. For more information, call the education line for smoking cessation 7-724-LXXJTFE EAT A LOW FAT/CHOLESTEROL/SODIUM DIET: This diet may help reduce your chances of having a heart attack. LIFTING: With affected extremity: Avoid bending, pushing off and lifting more than 2 pounds for 24 hours The following 48 hours, avoid lifting anything more than 5 pounds Avoid strenuous activity or repetitive motions ACTIVITY: You may walk or climb stairs as tolerated You can resume sexual activity as tolerated In general, you are encouraged to engage in a minimum of 30 minutes or more of moderate intensity physical activity, such as brisk walking, daily or at least 3 -4 times weekly BATHING Do not submerge the site into water (bath tub, hot tub, swimming pool, dishes) for 1 week. This can be a source for infection into the blood stream. You may shower after 24 hours SITE CARE: After 24 hours, you may remove the dressing and leave the site open to air. Keep the site clean and dry. Clean gently and pat dry. You can expect bruising and tenderness that gradually resolve within a week or two. Return to work as instructed per your physician Resume driving as instructed per physician Keep all scheduled follow up appointments Resume medications as instructed IMPORTANT: If prescribed a Platelet Aggregation Inhibitor such as, Plavix, Brilinta or Effient: Duration of therapy is minimum one year These medications are often used in combination with Aspirin in prevention of future heart attacks Never discontinue unless consult with your Industrial Waste Inspector STROKE (CVA) Risk factors for a stroke are: Age, cigarette smoking, diabetes, excessive alcohol consumption, family history, high blood pressure, overweight, physical inactivity, prior stroke, heart attack, diagnosis of carotid artery stenosis or other artery disease. Warning signs: Sudden numbness or weakness of the face, arm or leg; especially on one side of the body, sudden confusion, trouble speaking or understanding, sudden trouble seeing in one or both eyes, sudden trouble walking, dizziness, loss of balance or coordination, sudden severe headache with no cause. Call 911 or go to the Emergency Room. CONGESTIVE HEART FAILURE: If you have been diagnosed with Congestive Heart Failure (CHF) and your symptoms return, make an appointment with your physician Weigh yourself daily. Notify your physician if you have a weight gain of two or more pounds in one day or five or more pounds in one week. If you experience any difficulty breathing, please call 911 BLEEDING: Although the risk of bleeding is minimal, it can happen. If you have any bleeding from the site, apply firm pressure above the puncture site for 10-15 minutes. If the bleeding does not stop, continue manual pressure and call 911 Contact [facility] ( ) if: You develop a fever greater than 101 degrees Fahrenheit Your site becomes reddened or has any drainage You have an increase in pain or burning at the site or if a large knot forms at the site. If you experience chest pain, shortness of breath, dizziness, or extreme tiredness, stop the activity and rest. Please notify [facility] office if you experience any of these symptoms and they are not relieved by rest please call 911! Referrals: Humberto Soliman, LYLA [Advanced Practice Nurse] - (Office will call patient at home with follow up appointment) Drew Alaniz DO [Non-Partnered Physician] - 09/01/17 10:00 am (this appointment is with Dr. Mariah Alaniz does not have anything available)
[2017-08-21] MEDS: 0.9 % Sodium Chloride 1,000 ML IVC SCH (00:31)
[2017-08-21] MEDS: Albuterol 2.5 MG/3 ML NEBULIZER IH SCH ×6 (00:34→20:20)
[2017-08-21 04:14] LABS: Basophils % 0.3 %; Eosinophils % 0.1 %; Hematocrit 29.2 % (35.3-44.9); Hemoglobin 8.7 g/dL (11.5-15.4); Immature Granulocytes % 0.4 % (0-4); Lymphocytes # 0.8 K/mcL (0.6-4.6); Mean Corpuscular HGB Conc 29.8 g/dL (31.6-35.5); Mean Corpuscular Hemoglobin 20.6 pg (28.0-33.3); Mean Corpuscular Volume 69.2 fL (83.0-100.0); Mean Platelet Volume 9.7 fL (9.4-12.4); Monocytes # 0.7 K/mcL (0.0-1.3); Monocytes % 8.6 %; Platelet Count 327 K/mcL (140-400); Red Blood Count 4.22 M/mcL (3.82-4.97); Red Cell Distribution Width 18.8 % (11.5-14.5); Segmented Neutrophils % 79.6 %
[2017-08-21 04:31] LABS: Neutrophils # 6.1 K/mcL (1.6-8.9)
[2017-08-21 04:35] LABS: % Iron Saturation 3 % (15-50); BUN/Creatinine Ratio 26 (6-26); Blood Urea Nitrogen 12 mg/dL (8-23); Calcium 8.3 mg/dL (8.6-10.3); Carbon Dioxide 28 mEq/L (23-29); Chloride 95 mEq/L (98-107); Glucose 128 mg/dL (70-105); Iron 12 mcg/dL (50-170); Osmolality,Calculated 265 (280-300); Potassium 4.4 mEq/L (3.5-5.1); Sodium 127 mEq/L (136-145); Transferrin 334 mg/dL (203-362); eGFR For African Americans > 60 (> 60); eGFR For Non-African Americans > 60 (> 60)
[2017-08-21 04:50] LABS: Anisocytosis 2+ (Not Present); Hypochromasia Present (Not Present); Platelet Estimate Normal (Normal); Poikilocytosis 2+ (Not Present); Polychromasia 1+ (Not Present)
[2017-08-21 04:52] LABS: Ferritin 14 ng/mL (10-120)
[2017-08-21 04:59] LABS: Folate 9.4 ng/mL (3.0-16.0)
[2017-08-21] MEDS: *HR* Heparin 5,000 UNIT/ML VIAL SQ SCH ×2 (05:26→16:58)
[2017-08-21] MEDS: cefTRIAXone 1,000 MG in Water for inj. (sterile) 20 ML 10 ML IVP SCH (08:37)
[2017-08-21] MEDS: SACUBITRIL/VALSARTAN 49/51 MG TABLET PO SCH ×2 (08:38→20:55)
[2017-08-21] MEDS: Magnesium Oxide 400 MG TABLET PO SCH ×2 (08:38→20:54)
[2017-08-21] MEDS: Metoprolol XL (24 HR) Succ 25 MG TAB.ER.24H PO SCH (08:38)
[2017-08-21] MEDS: Aspirin 81 MG TAB.CHEW PO SCH (08:38)
--- NOTE | 2017-08-21 11:22 | Nephrology Progress Note ---
Date of Encounter: 08/21/17 Time of Encounter: 10:55 - Assessment and Plan (1) Hyponatremia Current Visit: Yes Status: Acute May have SIADH or like syndrome. Low urine sodium does not rule out SIADH. BUN and creat so low not convinced volume depleted. Agree with stopping Spironolactone and not restarting. Also would avoid thiazides. Cosyntropin stim test negative for adrenal insufficiency, TSH normal range. Sodium improving, 127. Stop IV fluids. Would continue to restrict PO fluid intake 1200 cc/24 hours. Subjective Principal diagnosis: Chest pain Interval history: Laying in bed, watching tv. States feeling better. No new complaints. Objective - Vital Signs Vital signs: Vital Signs Temp Pulse Resp BP Pulse Ox 08/21/17 11:14 98.0 F 78 16 146/65 100 08/21/17 10:59 16 95 08/21/17 07:25 16 99 08/21/17 07:12 98.0 F 72 16 138/62 96 08/21/17 05:04 97.9 F 79 16 141/70 92 08/21/17 04:32 16 96 08/21/17 00:35 16 97 08/21/17 00:34 97.7 F 73 16 133/57 99 08/20/17 22:20 92 08/20/17 20:22 97.8 F 79 16 106/57 97 08/20/17 19:50 16 97 08/20/17 16:18 98.2 F 72 18 131/67 92 08/20/17 15:43 18 93 08/20/17 14:24 95 Intake and Output 08/20/17 08/21/17 08/21/17 23:59 07:59 15:59 Intake Total 360 / 360 1000 / 1000 360 / 360 Balance 360 / 360 1000 / 1000 360 / 360 Intake: IV Fluids 1000 / 1000 0.9 % Sodium Chloride 1,000 ML 1000 / 1000 @ 75 mls/hr IVC .[id number] [facility] Rx #:[id number] Oral 360 / 360 360 / 360 Other: Meal Dinner Breakfast Percent of Meal Consumed 85% 100% Stool Size Small # Urine Diapers 1 1 # Bowel Movement Diapers 1 Weight 54.9 kg Patient Weight 08/21/17 23:59 Weight 54.9 kg - General Appearance General appearance: Present: well-developed, well-nourished, appears started age EENT: Present: mucous membranes moist Neck: Present: no JVD Respiratory: Present: wheezing Cardiology: Present: no edema, regular rate, regular rhythm Gastrointestinal: Present: normoactive bowel sounds, no tenderness Integumentary: Present: warm and dry Neurologic: Present: alert and oriented x3 - Lab 08/21/17 03:52 08/21/17 03:52 Most recent lab results Calcium 8.3 mg/dL (8.6-10.3) L 08/21/17 03:52 Magnesium 1.5 mg/dL (1.6-2.6) L 08/17/17 15:55 Urine Creatinine 111 mg/dL 08/19/17 05:05 Urine Sodium < 10.0 mEq/L 08/19/17 05:05 Consult Discharge Plan - Plan Additional Instructions: RISK FACTORS: STOP SMOKING: If you smoke, STOP. Smoking or tobacco use significantly increases your risk of heart disease because nicotine causes the arteries to narrow or constrict. It also causes fats to stick to the artery. Your chances of having a heart attack are greatly increased if you continue to smoke. For more information, call the education line for smoking cessation 1-025-LINSBQQ EAT A LOW FAT/CHOLESTEROL/SODIUM DIET: This diet may help reduce your chances of having a heart attack. LIFTING: With affected extremity: Avoid bending, pushing off and lifting more than 2 pounds for 24 hours The following 48 hours, avoid lifting anything more than 5 pounds Avoid strenuous activity or repetitive motions ACTIVITY: You may walk or climb stairs as tolerated You can resume sexual activity as tolerated In general, you are encouraged to engage in a minimum of 30 minutes or more of moderate intensity physical activity, such as brisk walking, daily or at least 3 -4 times weekly BATHING Do not submerge the site into water (bath tub, hot tub, swimming pool, dishes) for 1 week. This can be a source for infection into the blood stream. You may shower after 24 hours SITE CARE: After 24 hours, you may remove the dressing and leave the site open to air. Keep the site clean and dry. Clean gently and pat dry. You can expect bruising and tenderness that gradually resolve within a week or two. Return to work as instructed per your physician Resume driving as instructed per physician Keep all scheduled follow up appointments Resume medications as instructed IMPORTANT: If prescribed a Platelet Aggregation Inhibitor such as, Plavix, Brilinta or Effient: Duration of therapy is minimum one year These medications are often used in combination with Aspirin in prevention of future heart attacks Never discontinue unless consult with your Glassware Selector STROKE (CVA) Risk factors for a stroke are: Age, cigarette smoking, diabetes, excessive alcohol consumption, family history, high blood pressure, overweight, physical inactivity, prior stroke, heart attack, diagnosis of carotid artery stenosis or other artery disease. Warning signs: Sudden numbness or weakness of the face, arm or leg; especially on one side of the body, sudden confusion, trouble speaking or understanding, sudden trouble seeing in one or both eyes, sudden trouble walking, dizziness, loss of balance or coordination, sudden severe headache with no cause. Call 911 or go to the Emergency Room. CONGESTIVE HEART FAILURE: If you have been diagnosed with Congestive Heart Failure (CHF) and your symptoms return, make an appointment with your physician Weigh yourself daily. Notify your physician if you have a weight gain of two or more pounds in one day or five or more pounds in one week. If you experience any difficulty breathing, please call 911 BLEEDING: Although the risk of bleeding is minimal, it can happen. If you have any bleeding from the site, apply firm pressure above the puncture site for 10-15 minutes. If the bleeding does not stop, continue manual pressure and call 911 Contact [facility] ( ) if: You develop a fever greater than 101 degrees Fahrenheit Your site becomes reddened or has any drainage You have an increase in pain or burning at the site or if a large knot forms at the site. If you experience chest pain, shortness of breath, dizziness, or extreme tiredness, stop the activity and rest. Please notify [facility] office if you experience any of these symptoms and they are not relieved by rest please call 911! Referrals: Humberto Soliman, LYLA [Advanced Practice Nurse] - (Office will call patient at home with follow up appointment) Drew Alaniz DO [Non-Partnered Physician] - 09/01/17 10:00 am (this appointment is with Dr. Mariah Alaniz does not have anything available)
--- NOTE | 2017-08-21 14:52 | Internal Med Progress Note ---
Date of Encounter: 08/21/17 Time of Encounter: 14:50 - Assessment and plan (1) Hyponatremia Current Visit: Yes Status: Acute Assessment and plan: Improving with fluid restriction and normal saline infusion. Will stop normal saline for now. Continue fluid restriction. 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 Nephrology following. (2) STEMI (ST elevation myocardial infarction) Current Visit: Yes Status: Ruled-out Qualifiers: Involved coronary artery: other inferior wall coronary artery Qualified Code(s): I21.19 - ST elevation (STEMI) myocardial infarction involving other coronary artery of inferior wall (3) Cardiomyopathy Current Visit: Yes Status: Chronic Assessment and plan: Continue entresto, metoprolol. Stopped spironolactone due to hyponatremia. Qualifiers: Cardiomyopathy type: ischemic Qualified Code(s): I25.5 - Ischemic cardiomyopathy (4) CAD (coronary artery disease) Current Visit: Yes Status: Chronic Assessment and plan: On aspirin, Plavix. No chest pain at this time. Qualifiers: Coronary Disease-Associated Artery/Lesion type: [place] artery [place] vs. transplanted heart: [place] heart Associated angina: angina presence unspecified Qualified Code(s): I25.10 - Atherosclerotic heart disease of [place] coronary artery without angina pectoris (5) COPD (chronic obstructive pulmonary disease) Current Visit: Yes Status: Chronic Assessment and plan: Continue bronchodilators as needed. Qualifiers: COPD type: unspecified COPD Qualified Code(s): J44.9 - Chronic obstructive pulmonary disease, unspecified - Time Spent With Patient Total time spent is greater than 50% in coordination of care (as documented) at patient's floor/unit and/or counseling patient: - Subjective Interval history: Patient denies any complaints at this time. No dizziness or palpitations. No shortness of breath. No chest pain. Denies any hematemesis or melena. - Constitutional Vitals: Temp Pulse Resp BP Pulse Ox 98.0 F 78 16 146/65 100 08/21/17 11:14 08/21/17 11:14 08/21/17 11:14 08/21/17 11:14 08/21/17 11:14 General appearance: Present: cooperative, A&O X 3, underweight, answers questions appropriately - Neck Neck exam general surgery: Present: supple, trachea midline. Absent: lymphadenopathy - Respiratory Respiratory exam: Present: prolonged expiratory phase, wheezes. Absent: accessory muscle use, rales, rhonchi - Cardiovascular Cardiovascular exam: Present: RRR, +S1, +S2. Absent: diastolic murmur, gallop, rubs, systolic murmur - GI/Abdominal GI/Abdominal exam: Present: normal bowel sounds, soft, no peritoneal signs. Absent: distended, tenderness - Extremities Exam Extremities exam: Present: warm, radial pulses palpable and symmetrical. Absent : calf tenderness, cyanotic, pedal edema - Neurological Exam Neurological exam: Present: alert, oriented X3, no focal deficits. Absent: facial droop, speech deficit Internal Medicine: Result - Labs CBC & Chem 7: 08/21/17 03:52 08/21/17 03:52 Labs: Short CBC 08/21/17 Range/Units 03:52 WBC 7.6 (4.3-11.1) K/mcL Hgb 8.7 L (11.5-15.4) g/dL Hct 29.2 L (35.3-44.9) % Plt Count 327 (140-400) K/mcL Neutrophils # 6.1 (1.6-8.9) K/mcL BMP 08/20/17 08/21/17 17:09 03:52 Sodium 125 L 127 L Potassium 4.4 Chloride 95 L Carbon Dioxide 28 BUN 12 Creatinine 0.46 L Glucose 128 H Calcium 8.3 L Urine 08/19/17 Range/Units 05:05 Urine Color Yellow (Yellow) Urine Clarity Cloudy A (Clear) Urine pH 6.5 (5.0-8.0) pH Units Ur Specific [place] 1.019 (1.010-1.025) Urine Protein 30 H (Neg-Trace) mg/dL Urine Glucose (UA) Normal (Normal) mg/dL - ABG Interpretation ABG results: PT/INR, D-dimer PT 12.5 Seconds (9.4-12.1) H 08/17/17 15:55 Consult Discharge Plan - Plan Additional Instructions: RISK FACTORS: STOP SMOKING: If you smoke, STOP. Smoking or tobacco use significantly increases your risk of heart disease because nicotine causes the arteries to narrow or constrict. It also causes fats to stick to the artery. Your chances of having a heart attack are greatly increased if you continue to smoke. For more information, call the education line for smoking cessation 3-864-HODYPPS EAT A LOW FAT/CHOLESTEROL/SODIUM DIET: This diet may help reduce your chances of having a heart attack. LIFTING: With affected extremity: Avoid bending, pushing off and lifting more than 2 pounds for 24 hours The following 48 hours, avoid lifting anything more than 5 pounds Avoid strenuous activity or repetitive motions ACTIVITY: You may walk or climb stairs as tolerated You can resume sexual activity as tolerated In general, you are encouraged to engage in a minimum of 30 minutes or more of moderate intensity physical activity, such as brisk walking, daily or at least 3 -4 times weekly BATHING Do not submerge the site into water (bath tub, hot tub, swimming pool, dishes) for 1 week. This can be a source for infection into the blood stream. You may shower after 24 hours SITE CARE: After 24 hours, you may remove the dressing and leave the site open to air. Keep the site clean and dry. Clean gently and pat dry. You can expect bruising and tenderness that gradually resolve within a week or two. Return to work as instructed per your physician Resume driving as instructed per physician Keep all scheduled follow up appointments Resume medications as instructed IMPORTANT: If prescribed a Platelet Aggregation Inhibitor such as, Plavix, Brilinta or Effient: Duration of therapy is minimum one year These medications are often used in combination with Aspirin in prevention of future heart attacks Never discontinue unless consult with your Prepress Manager STROKE (CVA) Risk factors for a stroke are: Age, cigarette smoking, diabetes, excessive alcohol consumption, family history, high blood pressure, overweight, physical inactivity, prior stroke, heart attack, diagnosis of carotid artery stenosis or other artery disease. Warning signs: Sudden numbness or weakness of the face, arm or leg; especially on one side of the body, sudden confusion, trouble speaking or understanding, sudden trouble seeing in one or both eyes, sudden trouble walking, dizziness, loss of balance or coordination, sudden severe headache with no cause. Call 911 or go to the Emergency Room. CONGESTIVE HEART FAILURE: If you have been diagnosed with Congestive Heart Failure (CHF) and your symptoms return, make an appointment with your physician Weigh yourself daily. Notify your physician if you have a weight gain of two or more pounds in one day or five or more pounds in one week. If you experience any difficulty breathing, please call 911 BLEEDING: Although the risk of bleeding is minimal, it can happen. If you have any bleeding from the site, apply firm pressure above the puncture site for 10-15 minutes. If the bleeding does not stop, continue manual pressure and call 911 Contact [facility] ( ) if: You develop a fever greater than 101 degrees Fahrenheit Your site becomes reddened or has any drainage You have an increase in pain or burning at the site or if a large knot forms at the site. If you experience chest pain, shortness of breath, dizziness, or extreme tiredness, stop the activity and rest. Please notify [facility] office if you experience any of these symptoms and they are not relieved by rest please call 911! Referrals: Humberto Soliman, DIRECTOR INFORMATION [Advanced Practice Nurse] - (Office will call patient at home with follow up appointment) Drew Alaniz DO [Non-Partnered Physician] - 09/01/17 10:00 am (this appointment is with Dr. Mariah Alaniz does not have anything available)
[2017-08-21 15:14] LABS: Hematocrit 30.4 % (35.3-44.9); Hemoglobin 9.1 g/dL (11.5-15.4)
[2017-08-22] MEDS: Albuterol 2.5 MG/3 ML NEBULIZER IH SCH ×4 (00:03→10:26)
[2017-08-22] MEDS: *HR* Heparin 5,000 UNIT/ML VIAL SQ SCH (05:32)
[2017-08-22 06:51] LABS: Basophils % 0.4 %; Eosinophils # 0.1 K/mcL (0.0-0.6); Eosinophils % 0.9 %; Hematocrit 31.1 % (35.3-44.9); Hemoglobin 9.2 g/dL (11.5-15.4); Immature Granulocytes % 0.4 % (0-4); Lymphocytes # 0.9 K/mcL (0.6-4.6); Lymphocytes % 12.5 %; Mean Corpuscular HGB Conc 29.6 g/dL (31.6-35.5); Mean Corpuscular Hemoglobin 21.1 pg (28.0-33.3); Mean Corpuscular Volume 71.3 fL (83.0-100.0); Mean Platelet Volume 9.7 fL (9.4-12.4); Monocytes # 0.7 K/mcL (0.0-1.3); Monocytes % 10.6 %; Neutrophils # 5.2 K/mcL (1.6-8.9); Platelet Count 353 K/mcL (140-400); Red Blood Count 4.36 M/mcL (3.82-4.97); Segmented Neutrophils % 75.2 %
[2017-08-22 07:05] LABS: BUN/Creatinine Ratio 22 (6-26); Blood Urea Nitrogen 14 mg/dL (8-23); Calcium 8.7 mg/dL (8.6-10.3); Carbon Dioxide 34 mEq/L (23-29); Chloride 94 mEq/L (98-107); Glucose 87 mg/dL (70-105); Osmolality,Calculated 270 (280-300); Potassium 5.4 mEq/L (3.5-5.1); Sodium 130 mEq/L (136-145); eGFR For African Americans > 60 (> 60); eGFR For Non-African Americans > 60 (> 60)
[2017-08-22] MEDS: Aspirin 81 MG TAB.CHEW PO SCH (07:36)
[2017-08-22] MEDS: Metoprolol XL (24 HR) Succ 25 MG TAB.ER.24H PO SCH (07:36)
[2017-08-22] MEDS: Magnesium Oxide 400 MG TABLET PO SCH (07:36)
[2017-08-22] MEDS: SACUBITRIL/VALSARTAN 49/51 MG TABLET PO SCH (07:37)
--- NOTE | 2017-08-22 10:52 | Nephrology Progress Note ---
Date of Encounter: 08/22/17 Time of Encounter: 10:30 - Assessment and Plan (1) Hyponatremia Current Visit: Yes Status: Acute May have SIADH or like syndrome. Low urine sodium does not rule out SIADH. BUN and creat so low not convinced volume depleted. Agree with stopping Spironolactone and not restarting. Also would avoid thiazides. Cosyntropin stim test negative for adrenal insufficiency, TSH normal range. Sodium improving, 130. Would continue to restrict PO fluid intake 1200 cc/24 hours. Subjective Principal diagnosis: Chest pain Interval history: Laying in bed, watching tv. States feeling better. No new complaints. Objective - Vital Signs Vital signs: Vital Signs Temp Pulse Resp BP Pulse Ox 08/22/17 10:27 16 99 08/22/17 07:50 16 100 08/22/17 06:52 98.9 F 75 16 132/62 99 08/22/17 03:16 18 99 08/22/17 02:41 98.4 F 66 18 118/45 99 08/22/17 00:08 98.4 F 64 16 124/59 100 08/22/17 00:05 16 97 08/21/17 20:22 18 100 08/21/17 19:19 98.3 F 70 16 120/63 96 08/21/17 16:18 98.0 F 75 18 138/58 100 08/21/17 16:06 16 98 08/21/17 11:14 98.0 F 78 16 146/65 100 08/21/17 10:59 16 95 Intake and Output 08/21/17 08/22/17 08/22/17 23:59 07:59 15:59 Intake Total 237 / 237 240 / 240 Balance 237 / 237 240 / 240 Intake: Oral 237 / 237 240 / 240 Other: Meal turkey sandwich Breakfast Percent of Meal Consumed 100% 100% Stool Size Moderate Stool Consistency loose Stool Characteristics Tarry Stool Color Black # Urine Diapers 1 # Bowel Movement Diapers 1 Weight 55.2 kg Patient Weight 08/22/17 23:59 Weight 55.2 kg - General Appearance General appearance: Present: well-developed, well-nourished, appears started age EENT: Present: mucous membranes moist Neck: Present: no JVD Respiratory: Present: clear Cardiology: Present: edema, regular rate, regular rhythm Additional Comments: mild non-pitting Gastrointestinal: Present: normoactive bowel sounds, no tenderness Integumentary: Present: warm and dry Neurologic: Present: alert and oriented x3 - Lab 08/22/17 06:18 08/22/17 06:18 Most recent lab results Calcium 8.7 mg/dL (8.6-10.3) 08/22/17 06:18 Magnesium 1.5 mg/dL (1.6-2.6) L 08/17/17 15:55 Urine Creatinine 111 mg/dL 08/19/17 05:05 Urine Sodium < 10.0 mEq/L 08/19/17 05:05 Consult Discharge Plan - Plan Additional Instructions: RISK FACTORS: STOP SMOKING: If you smoke, STOP. Smoking or tobacco use significantly increases your risk of heart disease because nicotine causes the arteries to narrow or constrict. It also causes fats to stick to the artery. Your chances of having a heart attack are greatly increased if you continue to smoke. For more information, call the education line for smoking cessation 8-930-TJTZBYE EAT A LOW FAT/CHOLESTEROL/SODIUM DIET: This diet may help reduce your chances of having a heart attack. LIFTING: With affected extremity: Avoid bending, pushing off and lifting more than 2 pounds for 24 hours The following 48 hours, avoid lifting anything more than 5 pounds Avoid strenuous activity or repetitive motions ACTIVITY: You may walk or climb stairs as tolerated You can resume sexual activity as tolerated In general, you are encouraged to engage in a minimum of 30 minutes or more of moderate intensity physical activity, such as brisk walking, daily or at least 3 -4 times weekly BATHING Do not submerge the site into water (bath tub, hot tub, swimming pool, dishes) for 1 week. This can be a source for infection into the blood stream. You may shower after 24 hours SITE CARE: After 24 hours, you may remove the dressing and leave the site open to air. Keep the site clean and dry. Clean gently and pat dry. You can expect bruising and tenderness that gradually resolve within a week or two. Return to work as instructed per your physician Resume driving as instructed per physician Keep all scheduled follow up appointments Resume medications as instructed IMPORTANT: If prescribed a Platelet Aggregation Inhibitor such as, Plavix, Brilinta or Effient: Duration of therapy is minimum one year These medications are often used in combination with Aspirin in prevention of future heart attacks Never discontinue unless consult with your Commercial Lines Sales Executive STROKE (CVA) Risk factors for a stroke are: Age, cigarette smoking, diabetes, excessive alcohol consumption, family history, high blood pressure, overweight, physical inactivity, prior stroke, heart attack, diagnosis of carotid artery stenosis or other artery disease. Warning signs: Sudden numbness or weakness of the face, arm or leg; especially on one side of the body, sudden confusion, trouble speaking or understanding, sudden trouble seeing in one or both eyes, sudden trouble walking, dizziness, loss of balance or coordination, sudden severe headache with no cause. Call 911 or go to the Emergency Room. CONGESTIVE HEART FAILURE: If you have been diagnosed with Congestive Heart Failure (CHF) and your symptoms return, make an appointment with your physician Weigh yourself daily. Notify your physician if you have a weight gain of two or more pounds in one day or five or more pounds in one week. If you experience any difficulty breathing, please call 911 BLEEDING: Although the risk of bleeding is minimal, it can happen. If you have any bleeding from the site, apply firm pressure above the puncture site for 10-15 minutes. If the bleeding does not stop, continue manual pressure and call 911 Contact [facility] ( ) if: You develop a fever greater than 101 degrees Fahrenheit Your site becomes reddened or has any drainage You have an increase in pain or burning at the site or if a large knot forms at the site. If you experience chest pain, shortness of breath, dizziness, or extreme tiredness, stop the activity and rest. Please notify [facility] office if you experience any of these symptoms and they are not relieved by rest please call 911! Referrals: Humberto Soliman, LYLA [Advanced Practice Nurse] - (Office will call patient at home with follow up appointment) Drew Alaniz DO [Non-Partnered Physician] - 09/01/17 10:00 am (this appointment is with Dr. Mariah Alaniz does not have anything available)
[2017-08-22 10:57] VITALS: BP 122/60
--- NOTE | 2017-08-22 11:04 | Discharge Summary ---
- NOTES TO OUTPATIENT PROVIDER Notes to Outpatient Provider: Patient with history of CHF, COPD, hypertension, coronary artery disease was hospitalized here after presenting with chest pain. She had EKG changes concerning for ST elevation. As such she underwent left heart catheterization. She was not found to have any acute blockage but did have 100% blocked RCA stent with collaterals. She did not have PCI. She also had hyponatremia of uncertain etiology. Could be related to SIADH-like syndrome or use of spironolactone and lasix. Spironolactone has therefore been held. She has been placed on free water restriction with improvement in her sodium levels. She is clinically stable to be discharged at this time and will follow up with cardiology and her primary care provider for further management. Patient also had a slight decrease in her hemoglobin levels and was found to have low iron levels. As such he she has been placed on iron replacement therapy. She should follow up with her primary care provider and get EGD and colonoscopy arranged as outpatient for further workup. Orders not resulted at time of discharge: Pending orders 08/17/17 17:07 ECG 12 lead ECG [ECG] Routine ECG 12 lead ECG [ECG] Stat 08/18/17 07:00 ECG 12 lead ECG [ECG] Routine 08/21/17 07:38 Occult Blood,Stool [BF] Routine Date of Encounter: 08/22/17 Time of Encounter: 11:02 - Discharge Diagnosis (1) STEMI (ST elevation myocardial infarction) Priority: Primary Status: Ruled-out Qualifiers: Involved coronary artery: other inferior wall coronary artery Qualified Code(s): I21.19 - ST elevation (STEMI) myocardial infarction involving other coronary artery of inferior wall (2) Hyponatremia Priority: Secondary Status: Acute (3) Cardiomyopathy Priority: Secondary Status: Chronic Qualifiers: Cardiomyopathy type: ischemic Qualified Code(s): I25.5 - Ischemic cardiomyopathy (4) CAD (coronary artery disease) Priority: Secondary Status: Chronic Qualifiers: Coronary Disease-Associated Artery/Lesion type: [place] artery [place] vs. transplanted heart: [place] heart Associated angina: angina presence unspecified Qualified Code(s): I25.10 - Atherosclerotic heart disease of [place] coronary artery without angina pectoris (5) COPD (chronic obstructive pulmonary disease) Priority: Secondary Status: Chronic Qualifiers: COPD type: unspecified COPD Qualified Code(s): J44.9 - Chronic obstructive pulmonary disease, unspecified Hospital course: Ms. Jensen is a 67 year old female Patient with history of CHF, COPD, hypertension, coronary artery disease was hospitalized here after presenting with chest pain. She had EKG changes concerning for ST elevation. As such she underwent left heart catheterization. She was not found to have any acute blockage but did have 100% blocked RCA stent with collaterals. She did not have PCI. She also had hyponatremia of uncertain etiology. Could be related to SIADH -like syndrome or use of spironolactone and lasix. Spironolactone has therefore been held. She has been placed on free water restriction with improvement in her sodium levels. She is clinically stable to be discharged at this time and will follow up with cardiology and her primary care provider for further management. Patient also had a slight decrease in her hemoglobin levels and was found to have low iron levels. As such he she has been placed on iron replacement therapy. She should follow up with her primary care provider and get EGD and colonoscopy arranged as outpatient for further workup. Discharge discussed with: patient, nurse, cycle consultant - Time Spent with Patient Total time spent providing and/or coordinating discharge services: Greater than 30 minutes (40 min) - Discharge Medications Prescriptions: Aspirin 81 mg PO DAILY #30 tab.chew Atorvastatin [Lipitor] 40 mg PO HS #30 tablet Ferrous Sulfate 325 mg PO TIDWM #90 tablet Home Medications: Clopidogrel [Plavix] 75 mg PO DAILY 08/17/17 [History] Furosemide [Lasix] 20 mg PO DAILY 08/17/17 [History] Metoprolol XL (24 HR) Succ [Toprol Xl] 12.5 mg PO DAILY 08/17/17 [History] Omeprazole [PriLOSEC] 20 mg PO DAILY 08/17/17 [History] Sacubitril/Valsartan [Entresto 24 mg-26 mg Tablet] 1 tab PO BID 08/17/17 [ History] Aspirin 81 mg PO DAILY #30 tab.chew 08/22/17 [Rx] Atorvastatin [Lipitor] 40 mg PO HS #30 tablet 08/22/17 [Rx] Ferrous Sulfate 325 mg PO TIDWM #90 tablet 08/22/17 [Rx] Allergies/Adverse Reactions: 3 Allergy/AdvReac Type Severity Reaction Status Date / Time No Known Allergies Allergy Verified 08/17/17 15:52 Date of admission: 08/17/17 16:39 Primary care physician: PCP NONE Consults: 08/17/17 17:07 Consult to Cardiac Rehabilitation-Phase1 [CONS] Routine Comment: Reason for Consult: AMI Call Completed: Yes Consult to Nurse Navigator [CONS] Routine Comment: 08/18/17 11:12 Consult to Hospitalist [CONS] Routine Consulting Provider: Hospitalist Donna Reason for Consult: hyponatremia Call Completed: Yes 08/18/17 12:49 Consult to Nutrition [CONS] Routine Comment: Consulting Provider: NUTRITION Reason for Dietary Consult: PO Supplementation 08/18/17 15:54 Consult for Pharmacy Education [CONS] Stat Reason for Consult: Advise on drugs that can cause hyponatremia. Thanks. Call Completed: No 08/19/17 16:52 Consult to Nephrology [CONS] Routine Consulting Provider: [facility] ANISA Reason for Consult: Hyponatremia Time Notified: 16:52 Call Completed: Yes Discharging clinician: Favian Allen Anticipated date of discharge: 08/22/17 - Constitutional Vitals: Temp Pulse Resp BP Pulse Ox 98.4 F 70 19 122/60 97 08/22/17 10:55 08/22/17 10:55 08/22/17 10:55 08/22/17 10:55 08/22/17 10:55 General appearance: Present: cooperative, A&O X 3, underweight, answers questions appropriately - Neck Neck exam general surgery: Present: supple, trachea midline. Absent: lymphadenopathy - Respiratory Respiratory exam: Present: prolonged expiratory phase, wheezes. Absent: accessory muscle use, rales, rhonchi - Cardiovascular Cardiovascular exam: Present: RRR, +S1, +S2. Absent: diastolic murmur, gallop, rubs, systolic murmur - GI/Abdominal GI/Abdominal exam: Present: normal bowel sounds, soft, no peritoneal signs. Absent: distended, tenderness - Extremities Exam Extremities exam: Present: warm, radial pulses palpable and symmetrical. Absent : calf tenderness, cyanotic, pedal edema - Neurological Exam Neurological exam: Present: alert, oriented X3, no focal deficits. Absent: facial droop, speech deficit - Skin Skin exam: Present: dry, intact - Patient Status Disposition: Home Health Service Condition: Good Functional capacity at discharge: uses cane/walker Overall status at discharge: patient is progressing back to baseline - Discharge Instructions Instructions: Iron Supplements (By mouth), Aspirin (By mouth), Atorvastatin ( By mouth) Follow Up With: Humberto Soliman, LYLA [Advanced Practice Nurse] - (Office will call patient at home with follow up appointment) Drew Alaniz DO [Non-Partnered Physician] - 09/01/17 10:00 am (this appointment is with Dr. Mariah Alaniz does not have anything available) Additional Instructions: RISK FACTORS: STOP SMOKING: If you smoke, STOP. Smoking or tobacco use significantly increases your risk of heart disease because nicotine causes the arteries to narrow or constrict. It also causes fats to stick to the artery. Your chances of having a heart attack are greatly increased if you continue to smoke. For more information, call the education line for smoking cessation 3-170-NMSGUNP EAT A LOW FAT/CHOLESTEROL/SODIUM DIET: This diet may help reduce your chances of having a heart attack. LIFTING: With affected extremity: Avoid bending, pushing off and lifting more than 2 pounds for 24 hours The following 48 hours, avoid lifting anything more than 5 pounds Avoid strenuous activity or repetitive motions ACTIVITY: You may walk or climb stairs as tolerated You can resume sexual activity as tolerated In general, you are encouraged to engage in a minimum of 30 minutes or more of moderate intensity physical activity, such as brisk walking, daily or at least 3 -4 times weekly BATHING Do not submerge the site into water (bath tub, hot tub, swimming pool, dishes) for 1 week. This can be a source for infection into the blood stream. You may shower after 24 hours SITE CARE: After 24 hours, you may remove the dressing and leave the site open to air. Keep the site clean and dry. Clean gently and pat dry. You can expect bruising and tenderness that gradually resolve within a week or two. Return to work as instructed per your physician Resume driving as instructed per physician Keep all scheduled follow up appointments Resume medications as instructed IMPORTANT: If prescribed a Platelet Aggregation Inhibitor such as, Plavix, Brilinta or Effient: Duration of therapy is minimum one year These medications are often used in combination with Aspirin in prevention of future heart attacks Never discontinue unless consult with your Vice President Of Compliance STROKE (CVA) Risk factors for a stroke are: Age, cigarette smoking, diabetes, excessive alcohol consumption, family history, high blood pressure, overweight, physical inactivity, prior stroke, heart attack, diagnosis of carotid artery stenosis or other artery disease. Warning signs: Sudden numbness or weakness of the face, arm or leg; especially on one side of the body, sudden confusion, trouble speaking or understanding, sudden trouble seeing in one or both eyes, sudden trouble walking, dizziness, loss of balance or coordination, sudden severe headache with no cause. Call 911 or go to the Emergency Room. CONGESTIVE HEART FAILURE: If you have been diagnosed with Congestive Heart Failure (CHF) and your symptoms return, make an appointment with your physician Weigh yourself daily. Notify your physician if you have a weight gain of two or more pounds in one day or five or more pounds in one week. If you experience any difficulty breathing, please call 911 BLEEDING: Although the risk of bleeding is minimal, it can happen. If you have any bleeding from the site, apply firm pressure above the puncture site for 10-15 minutes. If the bleeding does not stop, continue manual pressure and call 911 Contact [facility] ( ) if: You develop a fever greater than 101 degrees Fahrenheit Your site becomes reddened or has any drainage You have an increase in pain or burning at the site or if a large knot forms at the site. If you experience chest pain, shortness of breath, dizziness, or extreme tiredness, stop the activity and rest. Please notify [facility] office if you experience any of these symptoms and they are not relieved by rest please call 911! - Diet and Activity Activity: increase activity as tolerated, wear oxygen at all times Diet: low fat, low cholesterol, low salt diet, other (Free water restriction to 1.2 L per day)
--- NOTE | 2017-08-22 11:12 | Physician Discharge Referral ---
Home Health/Hosp Referral Info Transfer to: Home Health Provider in Charge Post Discharge: PCP - Diagnosis (1) STEMI (ST elevation myocardial infarction) Priority: Primary Status: Ruled-out (2) Hyponatremia Priority: Secondary Status: Acute (3) Cardiomyopathy Priority: Secondary Status: Chronic (4) CAD (coronary artery disease) Priority: Secondary Status: Chronic (5) COPD (chronic obstructive pulmonary disease) Priority: Secondary Status: Chronic - Respiratory Orders Oxygen / L per min (2) Smoking Cessation: Smoking cessation has been advised. For more information, call the [place] Tobacco Quit Line at 6-871-VUTD-NOW. - Diet/Nutrition Diet/Nutrition Orders: Cardiac Diet/Nutrition: List: Free water restriction to 1.2 L per day - Activity Activity Orders: Walker - Services Needed Following services are medically necessary services: Nursing, Home Health Aide, Physical Therapy, Occupational Therapy - Transfer Medications Prescriptions: Aspirin 81 mg PO DAILY #30 tab.chew Atorvastatin [Lipitor] 40 mg PO HS #30 tablet Ferrous Sulfate 325 mg PO TIDWM #90 tablet Home Medications: Clopidogrel [Plavix] 75 mg PO DAILY 08/17/17 [History] Furosemide [Lasix] 20 mg PO DAILY 08/17/17 [History] Metoprolol XL (24 HR) Succ [Toprol Xl] 12.5 mg PO DAILY 08/17/17 [History] Omeprazole [PriLOSEC] 20 mg PO DAILY 08/17/17 [History] Sacubitril/Valsartan [Entresto 24 mg-26 mg Tablet] 1 tab PO BID 08/17/17 [ History] Aspirin 81 mg PO DAILY #30 tab.chew 08/22/17 [Rx] Atorvastatin [Lipitor] 40 mg PO HS #30 tablet 08/22/17 [Rx] Ferrous Sulfate 325 mg PO TIDWM #90 tablet 08/22/17 [Rx] Allergies/Adverse Reactions: 3 Allergy/AdvReac Type Severity Reaction Status Date / Time No Known Allergies Allergy Verified 08/17/17 15:52 Certification: Further, I certify that my clinical findings support that this patient is homebound (i.e. absences from home require considerable and taxing effort and are for medical reasons or [employer] services or infrequently or short duration when for other reasons) because: Homebound Reason: Patient requires assistance of a person or device to safely leave home, Severity of cardiac or pulmonary status limits activity tolerance Attestation: My signature below is to certify that this patient is under my care and that I, or nurse practitioner, or a physician's costumer assistant working with me, has a face-to -face encounter with this patient.
== END 2017-08-22 14:40 | disposition home health service (06) | DRG 251 ==
LOC: EMEROO 15:41 → ICNU 16:05 → EMEROO 16:07 → ICNU 16:39 → 2NNU 18:39
PROVIDERS: ADMIT Emergency Medicine; ATTEND Emergency Medicine

== ENCOUNTER 2017-11-08 12:06 | Observation (INO) ==
[2017-11-08] MEDS ORDERED: 0.9 % Sodium Chloride 1,000 ML ONE (12:09)
[2017-11-08] MEDS ORDERED: *HR* Heparin 5,000 UNIT/ML VIAL ONE (12:09)
--- NOTE | 2017-11-08 12:12 | Emergency Department Note ---
Disposition Clinical Impression: Stable angina Disposition: Admitted As Inpatient Condition: Good General Adult HPI - General Chief complaint: ED Chest Pain Stated complaint: Chest Pain Time Seen by Provider: 11/08/17 12:10 - Related Data Home Medications Medication Instructions Recorded Confirmed Clopidogrel [Plavix] 75 mg PO DAILY 08/17/17 11/08/17 Furosemide [Lasix] 20 mg PO DAILY 08/17/17 11/08/17 Metoprolol XL (24 HR) Succ [Toprol 12.5 mg PO DAILY 08/17/17 11/08/17 Xl] Omeprazole [PriLOSEC] 20 mg PO DAILY PRN 08/17/17 11/08/17 Ferrous Sulfate 325 mg PO DAILY 11/08/17 11/08/17 Previous Rx's Medication Instructions Recorded Aspirin 81 mg PO DAILY #30 tab.chew 08/22/17 Atorvastatin [Lipitor] 40 mg PO HS #30 tablet 08/22/17 Allergies Allergy/AdvReac Type Severity Reaction Status Date / Time No Known Allergies Allergy Verified 11/08/17 13:59 Past Medical History - Past Medical History Medical history: Reports: CHF, COPD, coronary artery disease, CVA, hyperlipidemia, hypertension Psychiatric history: Reports: no psych history HEEL DIPPER history: Reports: no HEEL DIPPER history - Social History Smoking Status: Current every day smoker Smokeless Tobacco Status: No Alcohol use: Reports: none Drug use: Reports: none Course Vital Signs Temperature 98.0 F 11/08/17 12:08 Pulse Rate 65 11/08/17 12:08 Respiratory Rate 18 11/08/17 12:08 Blood Pressure 104/70 11/08/17 12:08 O2 Sat by Pulse Oximetry 100 11/08/17 12:08 Temperature 98.1 F 11/08/17 17:32 Pulse Rate 67 11/08/17 17:32 Respiratory Rate 18 11/08/17 17:32 Blood Pressure 113/71 11/08/17 17:32 O2 Sat by Pulse Oximetry 92 11/08/17 17:32 Oxygen Delivery Oxygen Delivery Room Air Medical Decision Making - Lab Data Result diagrams: 11/08/17 13:35 11/08/17 13:35 Lab Results 11/08/17 11/08/17 11/08/17 Range/Units 13:35 13:35 13:35 WBC 12.2 H (4.3-11.1) K/mcL RBC 5.34 H (3.82-4.97) M/mcL Hgb 13.4 (11.5-15.4) g/dL Hct 43.6 (35.3-44.9) % MCV 81.6 L (83.0-100.0) fL MCH 25.1 L (28.0-33.3) pg MCHC 30.7 L (31.6-35.5) g/dL RDW 18.5 H (11.5-14.5) % Plt Count 308 (140-400) K/mcL MPV 9.6 (9.4-12.4) fL Immature Gran % 0.4 (0-4) % Seg Neutrophils % 85.8 % Lymphocytes % 8.5 % Monocytes % 4.7 % Eosinophils % 0.2 % Basophils % 0.4 % Neutrophils # 10.5 H (1.6-8.9) K/mcL Lymphocytes # 1.0 (0.6-4.6) K/mcL Monocytes # 0.6 (0.0-1.3) K/mcL Eosinophils # 0.0 (0.0-0.6) K/mcL Basophils # 0.1 (0.0-0.2) K/mcL Immature Plt Fraction 6.5 H (1.1-6.1) % PT 17.2 H (9.4-12.1) Seconds INR 1.5 APTT 37.1 H (26.0-36.0) Seconds Sodium 131 L (136-145) mEq/L Potassium 4.5 (3.5-5.1) mEq/L Chloride 100 (98-107) mEq/L Carbon Dioxide 23 (23-29) mEq/L BUN 13 (8-23) mg/dL Creatinine 0.60 (0.60-1.20) mg/dL Est GFR ( Amer) > 60 (> 60) Est GFR (Non-Af Amer) > 60 (> 60) BUN/Creatinine Ratio 22 (6-26) Glucose 108 H (70-105) mg/dL Calculated Osmolality 273 L (280-300) Calcium 8.9 (8.6-10.3) mg/dL Troponin I 0.04 H* (< 0.04) ng/mL Critical Care Time Critical Care Time: Yes Total Critical Care Time: 30 Attestation: The high probability of a clinically significant, sudden or life threatening deterioration of the [] system(s) required my full and direct attention, intervention and personal management. The aggregate critical care time was [] minutes. This time is in addition to time spent performing reported procedures but includes the following: [] Data Review and interpretation [] Patient assessment and monitoring of vital signs [] Documentation [] Medication orders and management Attestation Statement - Attestation Attestation: I examined this patient and my medical decision-making was reviewed with the Resident Physician. I agree with the documented findings, disposition and treatment plan as described except to the extent set forth below. [id number] time provided Patient arrives by EMS complaining of chest discomfort that started last night. She was admitted one month ago for similar symptoms requiring placement of a cardiac stent. She does have a known history of coronary artery disease. Patient appears in no acute distress upon arrival. EKG reviewed by me which shows less than [address] segment elevation inferior leads as well as Q waves. This study was compared to previous dictated August 2017 and is unchanged since that time.
--- NOTE | 2017-11-08 12:35 | Emergency Department Note ---
Disposition Clinical Impression: Stable angina Disposition: Admitted As Inpatient Condition: Good Time of Disposition: 15:05 Chest Pain HPI - General Chief Complaint: ED Chest Pain Stated Complaint: Chest Pain Time Seen by Provider: 11/08/17 12:10 Source: EMS Limitations: no limitations Vital Signs Reviewed: Yes Nursing Notes Reviewed: Yes - History of Present Illness HPI Narrative: 67-year-old female presented to the emergency department complaining of chest pain. This was called in as a possible STEMI from EMS as they noticed ST elevation in the inferior leads II, III, and F aVF. Patient recently 1 month ago had stents placed as she had a inferior STEMI. Patient said that around 10: 00 last night she started having chest pain this morning it worsens as when she is adequately EMS to get transferred here. Patient says she does take blood thinner she believes is Plavix but otherwise has not taken anything else. She said she is diabetic does have COPD. Says the chest pain is 610 in the center of her chest pressure this nonradiating. Says it is hard to tell if it is similar to last time she does remember much of what happened last time. Patient will have any nausea or vomiting at this time. No other complaints Severity scale (1-10): 8 - Related Data Home Medications Medication Instructions Recorded Confirmed Clopidogrel [Plavix] 75 mg PO DAILY 08/17/17 Furosemide [Lasix] 20 mg PO DAILY 08/17/17 Metoprolol XL (24 HR) Succ [Toprol 12.5 mg PO DAILY 08/17/17 Xl] Omeprazole [PriLOSEC] 20 mg PO DAILY 08/17/17 Ferrous Sulfate 325 mg PO DAILY 11/08/17 11/08/17 Previous Rx's Medication Instructions Recorded Aspirin 81 mg PO DAILY #30 tab.chew 08/22/17 Atorvastatin [Lipitor] 40 mg PO HS #30 tablet 08/22/17 Allergies Allergy/AdvReac Type Severity Reaction Status Date / Time No Known Allergies Allergy Verified 11/08/17 13:59 All systems ED: reviewed and negative except as stated. Review of Systems: As Per HPI Constitutional: Denies: fever, chills, weakness, weight change Eyes: Denies: eye pain, eye discharge, vision change ENT ED: Denies: ear pain, throat pain, dental pain, hearing loss, epistaxis, congestion, dysphagia Cardiovascular: Reports: chest pain. Denies: palpitations, dyspnea on exertion , edema, syncope Respiratory: Reports: dyspnea. Denies: cough, wheezes, hemoptysis, stridor Gastrointestinal: Denies: abdominal pain, nausea, vomiting, diarrhea, constipation, hematemesis, melena, hematochezia Genitourinary: Denies: dysuria, frequency, hematuria, discharge Musculoskeletal: Denies: back pain, neck pain, arthralgia, myalgia Integumentary: Denies: rash, abrasion, lesions Neurological: Denies: headache, weakness, numbness, paresthesias, confusion, abnormal gait, vertigo Psychiatric: Denies: anxiety, depression, suicidal thoughts, homicidal thoughts , auditory hallucinations, visual hallucinations Endocrine: Denies: fatigue Hematological/Lymphatic: Denies: easy bleeding, easy bruising Chest Pain PMH - Past Medical History Medical history: Reports: CHF, COPD, coronary artery disease, CVA, hyperlipidemia, hypertension Psychiatric history: Reports: no psych history PHILANTHROPY OFFICER history: Reports: no PHILANTHROPY OFFICER history - Social History Smoking Status: Current every day smoker Alcohol use: Reports: none Drug use: Reports: none Physical Exam - General Limitations: no limitations General appearance: alert, in no apparent distress - Head Head exam: atraumatic, normocephalic, normal inspection - Eye Eye exam: Present: normal appearance, PERRL, EOMI - ENT ENT exam: normal exam, normal oropharynx, mucous membranes moist - Neck Neck exam: Present: normal inspection, full ROM, trachea midline - Chest Chest inspection: Present: normal inspection, symmetric chest wall rise - Respiratory Respiratory exam: Present: normal lung sounds bilaterally - Cardiovascular Cardiovascular exam: Present: regular rate, normal rhythm, normal heart sounds - Extremities Exam Extremities exam: Present: normal inspection, full ROM. Absent: tenderness, pedal edema - Back Exam Back exam: Present: normal inspection, full ROM. Absent: tenderness - Neurological Exam Neurological exam: Present: alert, oriented X3 - Skin Skin exam: Present: warm, dry, intact, normal color Course Course Narrative: 67-year-old female presented to the emergency department with chest pain. She had recent stent placement partially one month ago here due to inferior STEMI. We did look over the EKG and is ST elevation in II, III, and F aVF unchanged from her previous EKG from her STEMI. Due to this we will not call a STEMI alert we will do normal chest pain workup including CBC, BMP, troponin, chest x- ray. Patient okay with this plan. Disposition most likely is going be admission. By EMS patient was given full dose aspirin as well as 1 nitroglycerin. After the nitroglycerin patient's blood pressure did drop to 80 systolic so they gave 500 mL IV bolus and patient's blood pressure normalized. - Consultations Consultation #1: I spoke with on-call cardiology Dr. Jose who agreed with our plan and said that they would see the patient once the patient gets the floor. Time: 14:50 Consultation #2: Spoke with the on-call hospitalist Dr. Marrero who agreed to admit the patient to their service. Time: 15:03 Vital Signs Temperature 98.0 F 11/08/17 12:08 Pulse Rate 65 11/08/17 12:08 Respiratory Rate 18 11/08/17 12:08 Blood Pressure 104/70 11/08/17 12:08 O2 Sat by Pulse Oximetry 100 11/08/17 12:08 Temperature 98.0 F 11/08/17 12:08 Pulse Rate 67 11/08/17 13:07 Respiratory Rate 22 11/08/17 13:07 Blood Pressure 111/71 11/08/17 13:07 O2 Sat by Pulse Oximetry 98 11/08/17 13:07 Oxygen Delivery Oxygen Delivery Room Air Chest Pain - MDM Narrative Medical decision making narrative: 67-year-old female presented to the emergency department complaining of chest pain. At first a STEMI was called by EMS after evaluating her we found out that this is all based on old EKGs and there was II/III and aVF elevation were the exact same as her previous STEMI one month ago. She did have a right coronary 100% which was stented. Patient did tolerate this well. She is on Plavix. Patient's troponin came back as 0.04. We are not anticoagulate her with heparin. All other labs came back within normal limits. Patient due to having extensive history and have a heart score of 5 we felt that admission would be necessary. Cardiology has been consult it. Patient is admitted to the hospitalist service in stable condition. Chest X-Ray 11/08/17 12:10 IMPRESSION: No acute findings. D/ / Jennie Hathaway MD / Jennie Hathaway MD Interpreting Provider: Jennie Hathaway MD - Medical Records Medical records reviewed: Yes I reviewed the patient's medical records. - Lab Data Lab results reviewed: Yes I reviewed the patient's lab results. Result diagrams: 11/08/17 13:35 11/08/17 13:35 Lab Results 11/08/17 11/08/17 11/08/17 Range/Units 13:35 13:35 13:35 WBC 12.2 H (4.3-11.1) K/mcL RBC 5.34 H (3.82-4.97) M/mcL Hgb 13.4 (11.5-15.4) g/dL Hct 43.6 (35.3-44.9) % MCV 81.6 L (83.0-100.0) fL MCH 25.1 L (28.0-33.3) pg MCHC 30.7 L (31.6-35.5) g/dL RDW 18.5 H (11.5-14.5) % Plt Count 308 (140-400) K/mcL MPV 9.6 (9.4-12.4) fL Immature Gran % 0.4 (0-4) % Seg Neutrophils % 85.8 % Lymphocytes % 8.5 % Monocytes % 4.7 % Eosinophils % 0.2 % Basophils % 0.4 % Neutrophils # 10.5 H (1.6-8.9) K/mcL Lymphocytes # 1.0 (0.6-4.6) K/mcL Monocytes # 0.6 (0.0-1.3) K/mcL Eosinophils # 0.0 (0.0-0.6) K/mcL Basophils # 0.1 (0.0-0.2) K/mcL Immature Plt Fraction 6.5 H (1.1-6.1) % PT 17.2 H (9.4-12.1) Seconds INR 1.5 APTT 37.1 H (26.0-36.0) Seconds Sodium 131 L (136-145) mEq/L Potassium 4.5 (3.5-5.1) mEq/L Chloride 100 (98-107) mEq/L Carbon Dioxide 23 (23-29) mEq/L BUN 13 (8-23) mg/dL Creatinine 0.60 (0.60-1.20) mg/dL Est GFR ( Amer) > 60 (> 60) Est GFR (Non-Af Amer) > 60 (> 60) BUN/Creatinine Ratio 22 (6-26) Glucose 108 H (70-105) mg/dL Calculated Osmolality 273 L (280-300) Calcium 8.9 (8.6-10.3) mg/dL Troponin I 0.04 H* (< 0.04) ng/mL - Radiology Data Radiology results reviewed: Yes I reviewed the patient's radiology results. - EKG Data EKG attestation: Yes I reviewed and interpreted this EKG. EKG results narrative: EKG #1: EKG done at 1209 review by myself and attending shows sinus rhythm at a rate of 64, [place] 187, QRS 111, QTC 477. There is ST elevation in leads II, III, and F aVF with half a millimeter ST depression in leads V2 through V3. No other S T-wave changes or any other acute signs of ischemia. No hypertrophy, heart strain, heart block. No WPW/Brugada/HOCM. This EKG is the exact same as previous one including the ST depression and elevations that was done on . EKG #2: EKG done at 1305 review myself and the attending shows sinus rhythm with the continued ST elevation in leads II, III and aVF as well as ST depressions in 2 and 3 this is unchanged from the one previously done on her admission as well as her previous visit. There is no other signs of acute ischemia. Heart Score - Score History: Moderately Suspicious EKG: Non Specific repolarisation Disturbance Age: 45-65 Risk Factors: Equal/Greater than 3 risk factor or history of atherosclerotic disease Troponin: Less than normal limit HEART Score Total: 5
[2017-11-08 13:45] LABS: Basophils # 0.1 K/mcL (0.0-0.2); Basophils % 0.4 %; Eosinophils % 0.2 %; Hematocrit 43.6 % (35.3-44.9); Hemoglobin 13.4 g/dL (11.5-15.4); Immature Granulocytes % 0.4 % (0-4); Immature Platelets 6.5 % (1.1-6.1); Lymphocytes % 8.5 %; Mean Corpuscular HGB Conc 30.7 g/dL (31.6-35.5); Mean Corpuscular Hemoglobin 25.1 pg (28.0-33.3); Mean Corpuscular Volume 81.6 fL (83.0-100.0); Mean Platelet Volume 9.6 fL (9.4-12.4); Monocytes # 0.6 K/mcL (0.0-1.3); Monocytes % 4.7 %; Neutrophils # 10.5 K/mcL (1.6-8.9); Platelet Count 308 K/mcL (140-400); Red Blood Count 5.34 M/mcL (3.82-4.97); Red Cell Distribution Width 18.5 % (11.5-14.5); Segmented Neutrophils % 85.8 %
[2017-11-08 13:53] LABS: INR 1.5; Prothrombin Time 17.2 Seconds (9.4-12.1)
[2017-11-08 13:56] LABS: Activated Partial Thrombo Time 37.1 Seconds (26.0-36.0)
[2017-11-08 14:06] LABS: BUN/Creatinine Ratio 22 (6-26); Blood Urea Nitrogen 13 mg/dL (8-23); Calcium 8.9 mg/dL (8.6-10.3); Carbon Dioxide 23 mEq/L (23-29); Chloride 100 mEq/L (98-107); Glucose 108 mg/dL (70-105); Osmolality,Calculated 273 (280-300); Potassium 4.5 mEq/L (3.5-5.1); Sodium 131 mEq/L (136-145); eGFR For Non-African Americans > 60 (> 60)
[2017-11-08 14:09] LABS: Troponin I 0.04 ng/mL (< 0.04)
--- NOTE | 2017-11-08 15:53 | Internal Med History&Physical ---
Date of Encounter: 11/08/17 Time of Encounter: 15:00 Internal Medicine - H&P: HPI Chief complaint: Chest pain Plans for Post Hospital Care: Home History of present illness: Patient is a 67-year-old female with past medical history significant for cardiomyopathy with ICD in place in addition to coronary arterial stents 3, CVA and hyperlipidemia who presents to the ER on 12/05/17 due to chest pain. Patient reports on 11/07/17 of having left-sided chest pain which she describes as sharp and dull then to a heaviness feeling. Patient denies any provoking or relieving factors and states that her symptoms lasted minutes and occurred approximately 2-3 times on 11/07/17. Patient reports that on today (11/08/17) she experience altered sensation down her left arm. Patient does have extensive coronary arterial disease and was brought into the ER for further evaluation. In the ER, patient was found to have elevated troponin of 0.04. Of note patient was recently evaluated in August 2017 by cardiology and Heart catheterization on showed ipsilateral/collateral collateral supply RCA with 100% if are mid RCA. Echocardiogram on 08/17/17 revealed LVEF of 25% with severe left ventricular systolic dysfunction with regional variation. Cardiology was consulted from the ER and patient will be admitted to the medical surgical floor for ACS rule out. Past Med Surg Social Fam HX - Past Medical History Medical history: CHF, COPD, coronary artery disease, CVA, hyperlipidemia, hypertension Psychiatric history: no psych history - Past Surgical History Surgical History: AICD - Social History Smoking Status: Current every day smoker Smokeless Tobacco Status: No Alcohol use: none Drug use: none - Family History Father Hx Family Cardiac Disorders: Yes (Father with [place]) Internal Medicine - H&P: Meds Clopidogrel [Plavix] 75 mg PO DAILY 08/17/17 [History] Furosemide [Lasix] 20 mg PO DAILY 08/17/17 [History] Metoprolol XL (24 HR) Succ [Toprol Xl] 12.5 mg PO DAILY 08/17/17 [History] Omeprazole [PriLOSEC] 20 mg PO DAILY PRN 08/17/17 [History] Aspirin 81 mg PO DAILY #30 tab.chew 08/22/17 [Rx] Atorvastatin [Lipitor] 40 mg PO HS #30 tablet 08/22/17 [Rx] Ferrous Sulfate 325 mg PO DAILY 11/08/17 [History] 3 Allergy/AdvReac Type Severity Reaction Status Date / Time No Known Allergies Allergy Verified 11/08/17 13:59 All Systems PM: A 10-system review of systems was performed and is negative for pertinent findings except as documented above in the HPI. - Constitutional Vitals: Temp Pulse Resp BP Pulse Ox 98.0 F 68 17 123/79 98 11/08/17 12:08 11/08/17 15:16 11/08/17 15:16 11/08/17 15:16 11/08/17 15:16 General appearance: Present: A&O X 3, no acute distress Exam: See below - Eye Eye exam: Present: normal appearance - ENT ENT exam: Present: mucous membranes moist - Respiratory Respiratory exam: Present: CTAB. Absent: accessory muscle use, rales, rhonchi, wheezes - Cardiovascular Cardiovascular exam: Present: RRR, +S1, +S2. Absent: diastolic murmur, gallop, rubs, systolic murmur - GI/Abdominal GI/Abdominal exam: Present: normal bowel sounds, soft, no peritoneal signs. Absent: distended, tenderness - Extremities Exam Extremities exam: Present: warm, radial pulses palpable and symmetrical. Absent : calf tenderness, cyanotic, pedal edema - Neurological Exam Neurological exam: Present: oriented X3 - Psychiatric Psychiatric exam: Present: normal mood - Skin Skin exam: Present: normal color Internal Med - H&P Results - Labs CBC & Chem 7: 11/08/17 13:35 11/08/17 13:35 - Assessment and plan (1) Stable angina Current Visit: Yes Status: Acute Assessment and plan: Patient reported of chest pain on 11/07/17 with left arm altered sensation today. First set of troponin 0.04 Patient was recently evaluated in August 2017 by cardiology and heart catheterization on showed ipsilateral/collateral collateral supply RCA with 100% if are mid RCA. Echocardiogram on 08/17/17 revealed LVEF of 25% with severe left ventricular systolic dysfunction with regional variation. Will trend serial troponins and monitor on telemetry. Cardiology consulted and appreciate recommendations (2) Cardiomyopathy Current Visit: No Status: Chronic Assessment and plan: Echocardiogram on 08/17/17 revealed LVEF of 25% with severe left ventricular systolic dysfunction with regional variation. Continue home dose of by mouth Lasix in addition to beta alayna, aspirin, Plavix and statin Qualifiers: Cardiomyopathy type: ischemic Qualified Code(s): I25.5 - Ischemic cardiomyopathy (3) Hyponatremia Current Visit: No Status: Acute Assessment and plan: Patient will chronic hyponatremia for the last 3 months Sodium 131 on admission; continue to monitor (4) Underweight Current Visit: No Status: Acute Assessment and plan: Patient with a BMI of 17.8 Will consult nutrition and appreciate recommendations (5) DVT prophylaxis Current Visit: Yes Status: Acute Assessment and plan: Heparin subcutaneous - Time Spent With Patient Total time spent is greater than 50% in coordination of care (as documented) at patient's floor/unit and/or counseling patient:
[2017-11-08] MEDS ORDERED: Naloxone 0.4 MG/ML INJ IVP PRN (16:01)
[2017-11-08] MEDS: *HR* Heparin 5,000 UNIT/ML VIAL SQ SCH (21:33)
[2017-11-09 01:43] LABS: Basophils % 0.5 %; Eosinophils # 0.1 K/mcL (0.0-0.6); Hematocrit 36.9 % (35.3-44.9); Immature Granulocytes % 0.3 % (0-4); Lymphocytes # 1.3 K/mcL (0.6-4.6); Lymphocytes % 15.8 %; Mean Corpuscular HGB Conc 31.7 g/dL (31.6-35.5); Mean Corpuscular Hemoglobin 25.5 pg (28.0-33.3); Mean Corpuscular Volume 80.4 fL (83.0-100.0); Mean Platelet Volume 10.4 fL (9.4-12.4); Monocytes # 0.8 K/mcL (0.0-1.3); Monocytes % 9.5 %; Neutrophils # 5.8 K/mcL (1.6-8.9); Platelet Count 260 K/mcL (140-400); Red Blood Count 4.59 M/mcL (3.82-4.97); Red Cell Distribution Width 18.5 % (11.5-14.5); Segmented Neutrophils % 72.9 %
[2017-11-09 01:49] LABS: Hemoglobin 11.7 g/dL (11.5-15.4)
[2017-11-09 02:11] LABS: BUN/Creatinine Ratio 23 (6-26); Blood Urea Nitrogen 13 mg/dL (8-23); Calcium 8.5 mg/dL (8.6-10.3); Carbon Dioxide 22 mEq/L (23-29); Chloride 100 mEq/L (98-107); Glucose 92 mg/dL (70-105); Osmolality,Calculated 268 (280-300); Potassium 4.2 mEq/L (3.5-5.1); Sodium 129 mEq/L (136-145); eGFR For Non-African Americans > 60 (> 60)
[2017-11-09] MEDS: *HR* Heparin 5,000 UNIT/ML VIAL SQ SCH ×3 (05:16→20:58)
--- NOTE | 2017-11-09 08:08 | Cardiology Consult Note ---
<Maribell Christian - Last Filed: 11/09/17 14:03> Date of Encounter: 11/09/17 Time of Encounter: 09:17 Assessment and Plan (1) Atypical chest pain Current Visit: Yes Status: Acute Atypical chest pain without significant EKG changes (stable from previous) History of cardiomyopathy requiring ICD followed by ischemic event requiring PCI with MERLYN to RCA Adynamic troponins Echo 08/17/17 - EF 25% with severe LV systolic dysfunction, LV wall thickness within normal range Current every day smoker, admits to left arm numbness and denies chest pain today Switch Metoprolol to Coreg 6.25 BID Will interrogate pacemaker for possible events Continue to encourage smoking cessation as patient is at high risk for ischemic events (2) CAD S/P percutaneous coronary angioplasty Current Visit: Yes Status: Chronic History of STEMI in 08/2017 requiring MERLYN to RCA Patient does not remember much from her hospital stay and is unsure if she was symptomatic at that time Minimal physical activity Adynamic troponins Continue home medications Switched Metoprolol to Coreg (3) Systolic CHF, chronic Current Visit: Yes Status: Chronic Stable without decompensation Echo 08/17/17 - EF 25% with severe LV systolic dysfunction Continue home medications (4) Left arm numbness Current Visit: Yes Status: Acute Atypical chest pain with new onset left arm numbness, does not appear to be cardiac in origin Unclear if this may be related to previous stroke, patient has poor memory 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 Recommend Neuro consult to evaluate further (5) COPD (chronic obstructive pulmonary disease) Current Visit: Yes Status: Chronic Chronic, stable Current every day smoker Patient is on supplemental O2 at home PRN Unclear if being fully treated Continue to encourage smoking cessation May benefit from pulmonary follow up as outpatient Qualifiers: COPD type: unspecified COPD Qualified Code(s): J44.9 - Chronic obstructive pulmonary disease, unspecified (6) DVT prophylaxis Current Visit: Yes Status: Acute SC Heparin Discussion w patient/family: The assessment and plan as outlined above was discussed with the patient and/or family members who expressed understanding and agreement. All questions were answered. Thank you for involving us in the care of your patient. Please call with any questions. History of Present Illness Consult date: 11/09/17 Requesting physician: Zay Kaur Consult reason: NSTEMI Chief complaint: Chest Pain History of present illness: Ms. Jensen is a 67 year old female with a history of STEMI with sent to the RCA in 08/2017, systolic CHF with ICD, CVA, and COPD who presented by EMS from home due to worsening chest pain. Patient states that the chest pain came on abruptly on the evening of 11/07 lasting less than 10 minutes and has been intermittent and worsening. She has difficulty describing the pain, but states that it is localized to the left side of her chest. Yesterday (11/08), she states that she experienced numbness of her left arm, which is constant. She admits to some SOB and chest congestion. She denies any nausea, vomiting, or cough. She says that this chest pain is different than the pain she experiences when she has heartburn or anxiety. She is not currently experiencing chest pain today, but complains of feeling tired. Past Med Surg Social Fam HX - Past Medical History Medical history: CHF, COPD, coronary artery disease, CVA, hyperlipidemia, hypertension Psychiatric history: no psych history - Past Surgical History Surgical History: AICD Additional surgical history: tubal, heart stents "maybe 2" - Social History Smoking Status: Current every day smoker Packs per day: 1 Smokeless Tobacco Status: No Alcohol use: none Drug use: none - Family History Father Hx Family Cardiac Disorders: Yes (Father with [place]) Medications and Allergies Clopidogrel [Plavix] 75 mg PO DAILY 08/17/17 [History] Furosemide [Lasix] 20 mg PO DAILY 08/17/17 [History] Metoprolol XL (24 HR) Succ [Toprol Xl] 12.5 mg PO DAILY 08/17/17 [History] Omeprazole [PriLOSEC] 20 mg PO DAILY PRN 08/17/17 [History] Aspirin 81 mg PO DAILY #30 tab.chew 08/22/17 [Rx] Atorvastatin [Lipitor] 40 mg PO HS #30 tablet 08/22/17 [Rx] Ferrous Sulfate 325 mg PO DAILY 11/08/17 [History] 3 Allergy/AdvReac Type Severity Reaction Status Date / Time No Known Allergies Allergy Verified 11/08/17 13:59 All Systems Review: The remainder of the systems were reviewed and are negative - Constitutional Constitutional: fatigue - Cardiovascular Cardiovascular: dyspnea on exertion, palpitations (when she becomes severely agitated), no chest pain at rest, no leg edema, no lightheadedness - Respiratory Respiratory: no cough - Psychiatric Psychiatric: anxiety Physical Examination Vital Signs, Last 4 Hours Temp Pulse Resp BP Pulse Ox 11/09/17 07:03 97.7 F 67 17 136/69 97 General: Conversant, No Apparent Distress HEENT: Atraumatic, Normocephaly Neck: No JVD Cardiac: Reg Rate and Rhythm, Normal S1 and S2, No Murmur Lungs: Other (Normal respiratry effort, crackles anteriorly) Neuro: Alert and responsive, Other (Admits to numbness in the left arm, decreased railroad 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 on the left) Skin: No rashes noted on visualized skin Musculoskeletal: No Chest Wall Tenderness Extremities: No Edema Results 11/09/17 01:15 11/09/17 01:15 Lab Results 11/08/17 11/09/17 11/09/17 19:50 01:15 01:15 WBC 7.9 Hgb 11.7 D Hct 36.9 Plt Count 260 Sodium Potassium Chloride Carbon Dioxide BUN Creatinine Glucose Calcium Troponin I 0.03 0.03 11/09/17 11/09/17 01:15 06:52 WBC Hgb Hct Plt Count Sodium 129 L Potassium 4.2 Chloride 100 Carbon Dioxide 22 L BUN 13 Creatinine 0.57 L Glucose 92 Calcium 8.5 L Troponin I 0.04 H* Consult Discharge Plan - Plan Referrals: Drew Alaniz DO [Primary Care Provider] - <Jasson Damon - Last Filed: 11/10/17 21:12> Date of Encounter: 11/09/17 Time of Encounter: 11:00 - Attending Attestation I examined this patient and my medical decision-making was reviewed with the Resident Physician. I agree with the documented findings, disposition and treatment plan as described except to the extent set forth below. CC: Chest pain HPI: Pt reports sudden onset of chest pain at rest, occurred 11/07/2017, severe / 10, when occurred, lasted approximately 10 minutes, associated with mild nausea and shortness of breath. She notes chest pain resolved, but has reoccurred on and off over last 24 hours. She notes chest pain resolved, however has developed worsening of left arm numbness. She reports left arm numbness similar to previous numbness experienced with prior stroke. She reports chest pain resolved since admission, left arm numbness continues. Pt continues to smoke against medical advice. ROS: reviewed PMH: reviewed PE: pt seen and examined, agree with findings as documented. IMP/Plan: 1. Chest pain, atypical, has ruled out for acute myocardial necrosis, 2. CAD: severe single vessel disease, post PCI with MERLYN RCA 08/2017 3. Ischemic cardiomyopathy, last EF 25% 08/23, well compensated chronic systolic heart failure on current medications 4. COPD: improving with respiratory tx., will switch metoprolol to carvedilol to reduce possible bronchospasm f 5. Left arm numbness, concerning for possible stroke, recommend neurology consult. Assessment and Plan Discussion w patient/family: The assessment and plan as outlined above was discussed with the patient and/or family members who expressed understanding and agreement. All questions were answered. Thank you for involving us in the care of your patient. Please call with any questions. History of Present Illness History of present illness: Ms. Jensen is a 67 year old female All Systems Review: The remainder of the systems were reviewed and are negative Physical Examination Vital Signs, Last 4 Hours Temp Pulse Resp BP Pulse Ox 11/10/17 19:18 98.5 F 61 16 111/58 96 Results 11/10/17 11:11 11/10/17 11:11 Lab Results 11/10/17 11/10/17 11:11 11:11 WBC 7.7 Hgb 12.4 Hct 39.4 Plt Count 275 Sodium 132 L Potassium 3.9 Chloride 98 Carbon Dioxide 31 H BUN 15 Creatinine 0.69 Glucose 125 H Calcium 8.7
[2017-11-09] MEDS ORDERED: Metoprolol XL (24 HR) Succ 25 MG TAB.ER.24H PO SCH (09:00)
[2017-11-09] MEDS: Furosemide 20 MG TABLET PO SCH (09:05)
[2017-11-09] MEDS: Aspirin 81 MG TAB.CHEW PO SCH (09:06)
--- NOTE | 2017-11-09 19:08 | Internal Med Progress Note ---
Hospitalist Progress Note - Encounter Date of Encounter: 11/09/17 Time of Encounter: 19:05 - Subjective Interval History: presented with chest pain, currently denies any now. No acute changes overnight. - Exam Vitals: Temp Pulse Resp BP Pulse Ox 99.0 F 67 16 114/63 98 11/09/17 15:40 11/09/17 15:40 11/09/17 15:40 11/09/17 15:40 11/09/17 15:40 Exam: PHYSICAL EXAMINATION: GENERAL: The patient is an ill-appearing female in no apparent distress, she is alert and oriented 3 HEENT: Head is normocephalic and atraumatic. Extraocular muscles are intact. Pupils are equal, round, and reactive to light and accommodation. NECK: Supple. No carotid bruits. No lymphadenopathy or thyromegaly. LUNGS: Clear to auscultation. HEART: Regular rate and rhythm , S1, S2, without murmur. ABDOMEN: Soft, nontender, and nondistended. Positive bowel sounds. No hepatosplenomegaly was noted. EXTREMITIES: Without any cyanosis, clubbing, rash, lesions or edema. 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 - Assessment and Plan (1) Cardiomyopathy Current Visit: No Status: Chronic Assessment and Plan: TTE 08/17/17, EF 25% with severe LV systolic dysfunction, LV wall thickness within normal range Presented this admission with chest pain, has now resolved at this time. Atypical chest pain presentation without significant EKG changes when compared to prior, troponins remain adynamic. Continue aspirin, statin, beta alayan ( changed to Coreg today per cardiology), Plavix Cardiology following in consultation-appreciate recommendations To undergo pacer interrogation (2) Hyponatremia Current Visit: No Status: Acute Assessment and Plan: Patient will chronic hyponatremia for the last 3 months Sodium 131 on admission, 129 today 11/09 stable; continue to monitor (3) Underweight Current Visit: No Status: Acute Assessment and Plan: Patient with a BMI of 17.8 Dietary supplementation per nutrition recommendations (4) Stable angina Current Visit: Yes Status: Acute Assessment and Plan: Patient reported of chest pain on 11/07/17 with left arm altered sensation today. Serial troponins peaked at 0.04, adynamic History of STEMI 08/23 requiring a MERLYN to RCA [facility] heart catheterization on 612/18 showed ipsilateral/collateral collateral supply RCA with 100% if are mid RCA. Echocardiogram on 08/17/17 revealed LVEF of 25% with severe left ventricular systolic dysfunction with regional variation. (5) DVT prophylaxis Current Visit: Yes Status: Acute Assessment and Plan: Continue Heparin subcutaneous (6) Left arm numbness Current Visit: Yes Status: Acute Assessment and Plan: Unclear as to whether this is due to CAD or from prior CVA Mild left lower extremity diminished preparation plant repairer strength Discuss with neurology tomorrow for further recommendations and evaluation Patient also having weakness and fatigue (7) CAD S/P percutaneous coronary angioplasty Current Visit: Yes Status: Chronic Assessment and Plan: Padma 08/2017 requiring a MERLYN to RCA Cardiology following, switch metoprolol to Coreg today Serial troponins adynamic (8) COPD (chronic obstructive pulmonary disease) Current Visit: Yes Status: Chronic Assessment and Plan: Per history, stable, continue COPD medications (9) Systolic CHF, chronic Current Visit: Yes Status: Chronic Assessment and Plan: Stable without decompensation, continue home medications - Time Spent with Patient Total time spent is greater than 50% in coordination of care (as documented) at patient's floor/unit and/or counseling patient: less than 15 minutes Plan of Care Discussed with: patient Internal Medicine: Result - Labs CBC & Chem 7: 11/09/17 01:15 11/09/17 01:15 Labs: Short CBC 11/09/17 Range/Units 01:15 WBC 7.9 (4.3-11.1) K/mcL Hgb 11.7 D (11.5-15.4) g/dL Hct 36.9 (35.3-44.9) % Plt Count 260 (140-400) K/mcL Neutrophils # 5.8 (1.6-8.9) K/mcL BMP 11/09/17 01:15 Sodium 129 L Potassium 4.2 Chloride 100 Carbon Dioxide 22 L BUN 13 Creatinine 0.57 L Glucose 92 Calcium 8.5 L Cardiac Enzymes 11/08/17 11/09/17 11/09/17 Range/Units 19:50 01:15 06:52 Troponin I 0.03 0.03 0.04 H* (< 0.04) ng/mL - ABG Interpretation ABG results: PT/INR, D-dimer PT 17.2 Seconds (9.4-12.1) H 11/08/17 13:35 Consult Discharge Plan - Plan Referrals: Drew Alaniz DO [Primary Care Provider] - (1) Cardiomyopathy Qualifiers: Cardiomyopathy type: ischemic Qualified Code(s): I25.5 - Ischemic cardiomyopathy (8) COPD (chronic obstructive pulmonary disease) Qualifiers: COPD type: unspecified COPD Qualified Code(s): J44.9 - Chronic obstructive pulmonary disease, unspecified
[2017-11-10] MEDS: *HR* Heparin 5,000 UNIT/ML VIAL SQ SCH ×3 (05:06→20:36)
[2017-11-10] MEDS: Furosemide 20 MG TABLET PO SCH (08:53)
[2017-11-10] MEDS: Aspirin 81 MG TAB.CHEW PO SCH (08:53)
--- NOTE | 2017-11-10 09:53 | Neurology - Consult Note ---
<Antonio Aguilera P - Last Filed: 11/10/17 11:50> Date of Encounter: 11/10/17 Time of Encounter: 09:00 Assessment and Plan (1) Stroke Current Visit: Yes Status: Acute She has stroke with left sided weakness in the past She has multiple risk factors: old age, smoker, HTN, hyperlipidemia She has mild weakness and numbness with tingling in her left arm , more symptomatic since last 2-3 days , but she has had similar symptoms before which comes and goes She is on Plavix and aspirin She is not a candidate for MRI: ICD in heart Plan: CT head without contrast Carotid doppler Qualifiers: CVA mechanism: unspecified Qualified Code(s): I63.9 - Cerebral infarction, unspecified (2) Left arm numbness Current Visit: Yes Status: Chronic The patient has had stroke with Left sided weakness before ,She was already on plavix and aspirin She has left sided weakness with numbness and tingling for 6-7 months, comes and goes She has significantly less sensation in her left forearm and hand compared to right forearm and hands Motor/ muscle strength in left side is slightly less than right side ( especially Auto Camp Attendant strength , Biceps and Triceps 4/5) : might be previous stroke residual weakness She has mild neck pain and stiffness She is not candidate for MRI as she had ICD History of Present Illness Chief complaint: Chest pain and left arm numbness and tingling HPI: Ms. Jensen is a 67 year old female with previous diagnosis of Cardiomyopathy with ICD in place in addition to coronary arterial stents 3, CVA with left sided weakness, and hyperlipidemia, chronic smoker presented to [facility] ED for left-sided chest pain, sharp and heaviness feeling. She had numbness in her left arm that is worse for last 2 days . She states that she has had this problem for last 6 months , comes and goes, describes she has significantly less sensation in her left arm as compared to right . She is on aspirin 81 mg and plavix 75 mg since she has stroke before. She has mild neck pain , but denies any fall injury,syncope, fever, seizure like activities. Today she is lying comfortably in bed , states that she is feeling better today . Vitals : BP 164/83, pul 81, tem 98.7F. Labs : TLC 7.9, Na 129, K 4.2, BUN 13, creatinine 0.57, Glucose 92, calcium 8.5 , Troponin-I 0.04, PT 17.2, INR 1.5 , APTT 37.1, Reports: Echo 08/17/17: LVEF 25% systolic dysfunction Past Med Surg Social Fam HX - Past Medical History Medical history: CHF, COPD, coronary artery disease, CVA, hyperlipidemia, hypertension Psychiatric history: no psych history - Past Surgical History Surgical History: AICD Additional surgical history: tubal, heart stents "maybe 2" - Social History Smoking Status: Current every day smoker Packs per day: 1 Smokeless Tobacco Status: No Alcohol use: none Drug use: none - Family History Father Hx Family Cardiac Disorders: Yes (Father with IL) Medications and Allergies Clopidogrel [Plavix] 75 mg PO DAILY 08/17/17 [History] Furosemide [Lasix] 20 mg PO DAILY 08/17/17 [History] Metoprolol XL (24 HR) Succ [Toprol Xl] 12.5 mg PO DAILY 08/17/17 [History] Omeprazole [PriLOSEC] 20 mg PO DAILY PRN 08/17/17 [History] Aspirin 81 mg PO DAILY #30 tab.chew 08/22/17 [Rx] Atorvastatin [Lipitor] 40 mg PO HS #30 tablet 08/22/17 [Rx] Ferrous Sulfate 325 mg PO DAILY 11/08/17 [History] 3 Allergy/AdvReac Type Severity Reaction Status Date / Time No Known Allergies Allergy Verified 11/08/17 13:59 All Systems: The remainder of the systems were reviewed and are negative Physical Examination - Vital Signs Vital Signs: Initial Vital Signs Temp Pulse Resp BP Pulse Ox 98.0 F 65 18 104/70 100 11/08/17 12:08 11/08/17 12:08 11/08/17 12:08 11/08/17 12:08 11/08/17 12:08 - Constitutional General appearance: comfortable - Neurologic Sensorimotor examination: intact Motor examination - right side: 5/5: deltoids, biceps, triceps, wrist flexion, wrist extension, enterprise manager, hip flexors, tibialis Anterior, quadriceps, toe extension (EHL), plantarflexion Motor examination - left side: 4/5: biceps, triceps, wrist flexion, wrist extension, enterprise manager, 5/5: deltoids, hip flexors, quadriceps, tibialis Anterior, toe extension (EHL), plantarflexion Detailed sensory examination: light touch Reflex and gait examination: intact Reflexes: Biceps: 2+, Triceps: 2+, Brachioradialis: 2+, Patella: 2+, Achilles: 2 + Mental Status Examination: awake, alert, oriented to person, oriented to place, oriented to time, follows commands appropriately, answers questions appropriately, no aphasia Results - Laboratory Findings CBC and BMP: 11/10/17 11:11 11/10/17 11:11 Abnormal lab findings: Abnormal lab results MCV 80.4 fL (83.0-100.0) L 11/09/17 01:15 MCH 25.5 pg (28.0-33.3) L 11/09/17 01:15 RDW 18.5 % (11.5-14.5) H 11/09/17 01:15 Immature Plt Fraction 6.5 % (1.1-6.1) H 11/08/17 13:35 PT 17.2 Seconds (9.4-12.1) H 11/08/17 13:35 APTT 37.1 Seconds (26.0-36.0) H 11/08/17 13:35 Sodium 129 mEq/L (136-145) L 11/09/17 01:15 Carbon Dioxide 22 mEq/L (23-29) L 11/09/17 01:15 Creatinine 0.57 mg/dL (0.60-1.20) L 11/09/17 01:15 Calculated Osmolality 268 (280-300) L 11/09/17 01:15 Calcium 8.5 mg/dL (8.6-10.3) L 11/09/17 01:15 Troponin I 0.04 ng/mL (< 0.04) H* 11/09/17 06:52 Consult Discharge Plan - Plan Referrals: Drew Alaniz DO [Primary Care Provider] - <Bill Garcia - Last Filed: 11/10/17 12:32> Date of Encounter: 11/10/17 History of Present Illness HPI: Ms. Jensen is a 67 year old female All Systems: The remainder of the systems were reviewed and are negative Physical Examination - Vital Signs Vital Signs: Initial Vital Signs Temp Pulse Resp BP Pulse Ox 98.0 F 65 18 104/70 100 11/08/17 12:08 11/08/17 12:08 11/08/17 12:08 11/08/17 12:08 11/08/17 12:08 Results - Laboratory Findings CBC and BMP: 11/10/17 11:11 11/10/17 11:11 Abnormal lab findings: Abnormal lab results MCV 82.8 fL (83.0-100.0) L 11/10/17 11:11 MCH 26.1 pg (28.0-33.3) L 11/10/17 11:11 MCHC 31.5 g/dL (31.6-35.5) L 11/10/17 11:11 RDW 17.6 % (11.5-14.5) H 11/10/17 11:11 Immature Plt Fraction 6.5 % (1.1-6.1) H 11/08/17 13:35 PT 17.2 Seconds (9.4-12.1) H 11/08/17 13:35 APTT 37.1 Seconds (26.0-36.0) H 11/08/17 13:35 Sodium 132 mEq/L (136-145) L 11/10/17 11:11 Carbon Dioxide 31 mEq/L (23-29) H 11/10/17 11:11 Glucose 125 mg/dL (70-105) H 11/10/17 11:11 Calculated Osmolality 276 (280-300) L 11/10/17 11:11 Troponin I 0.04 ng/mL (< 0.04) H* 11/09/17 06:52
--- NOTE | 2017-11-10 10:16 | Cardiology Progress Note ---
<Maribell Christian Madina - Last Filed: 11/10/17 14:21> Date of Encounter: 11/10/17 Time of Encounter: 09:45 Assessment and Plan (1) Atypical chest pain Current Visit: Yes Status: Acute Atypical chest pain without significant EKG changes (stable from previous) History of cardiomyopathy requiring ICD followed by ischemic event requiring PCI with MERLYN to RCA States that she is feeling much better today, although she admits to mild chest pain Adynamic troponins Echo 08/17/17 - EF 25% with severe LV systolic dysfunction, LV wall thickness within normal range Current every day smoker Continue Coreg 6.25 BID Pacemaker interrogation negative for any significant events Continue to encourage smoking cessation as patient is at high risk for ischemic events (2) CAD S/P percutaneous coronary angioplasty Current Visit: Yes Status: Chronic History of STEMI in 08/2017 requiring MERLYN to RCA Patient does not remember much from her hospital stay and is unsure if she was symptomatic at that time Minimal physical activity Adynamic troponins Continue home medications Continue Coreg (3) Systolic CHF, chronic Current Visit: Yes Status: Chronic Stable without decompensation Echo 08/17/17 - EF 25% with severe LV systolic dysfunction Continue home medications (4) Left arm numbness Current Visit: Yes Status: Chronic Atypical chest pain with left arm numbness, does not appear to be cardiac in origin Unclear if numbness is related to previous stroke, poor historian Continues to have left arm weakness with decreased cisco network architect strength Neuro following (5) COPD (chronic obstructive pulmonary disease) Current Visit: Yes Status: Chronic Chronic, stable Current every day smoker Patient is on supplemental O2 at home PRN Unclear if being fully treated Continue to encourage smoking cessation May benefit from pulmonary follow up as outpatient Qualifiers: COPD type: unspecified COPD Qualified Code(s): J44.9 - Chronic obstructive pulmonary disease, unspecified (6) DVT prophylaxis Current Visit: Yes Status: Acute SC Heparin Discussion w patient/family: The assessment and plan as outlined above was discussed with the patient and/or family members who expressed understanding and agreement. All questions were answered. Thank you for involving us in the care of your patient. Please call with any questions. Subjective Principal diagnosis: Atypical chest pain Interval history: Patient reports feeling much better today. She complains of mild chest pain that she has difficulty describing. She reports that the pain is much less severe than the chest pain that caused her to come into the ED. She rates the pain as a 6/10 and is lying comfortably in bed in no acute distress. She radiation of pain, SOB, nausea, vomiting, or lightheadedness. Objective Vital Signs, Last 4 Hours Temp Pulse Resp BP Pulse Ox 11/10/17 08:24 98.7 F 81 17 164/83 94 General: Conversant, No Apparent Distress HEENT: Atraumatic, Normocephaly Neck: No JVD Cardiac: Reg Rate and Rhythm, Normal S1 and S2, No Murmur Lungs: Normal Breath Sounds Neuro: Alert and responsive, Other (Persistant left arm numbness and weakness) Musculoskeletal: No Chest Wall Tenderness Extremities: No Edema Results 11/10/17 11:11 11/10/17 11:11 Consult Discharge Plan - Plan Instructions: Chest Pain (DC), Chronic Obstructive Pulmonary Disease (DC) Referrals: Drew Alaniz DO [Primary Care Provider] - Prescriptions: Carvedilol [Coreg] 6.25 mg PO BIDWM 30 Days #60 tablet <Jasson Damon - Last Filed: 11/11/17 18:12> Date of Encounter: 11/10/17 Time of Encounter: 11:00 Assessment and Plan Discussion w patient/family: The assessment and plan as outlined above was discussed with the patient and/or family members who expressed understanding and agreement. All questions were answered. Thank you for involving us in the care of your patient. Please call with any questions. Objective Vital Signs, Last 4 Hours Temp Pulse Resp BP Pulse Ox 11/11/17 15:39 97.9 F 65 18 158/74 98 Results 11/11/17 04:11 11/11/17 04:11 Lab Results 11/11/17 11/11/17 04:11 04:11 WBC 7.6 Hgb 13.0 Hct 41.0 Plt Count 281 Sodium 133 L Potassium 3.9 Chloride 97 L Carbon Dioxide 30 H BUN 16 Creatinine 0.58 L Glucose 89 Calcium 8.9 - Attending Attestation I examined this patient and my medical decision-making was reviewed with the Resident Physician. I agree with the documented findings, disposition and treatment plan as described except to the extent set forth below. CC: chest pain HPI: PT reports chest pain has improved, She has been minimally active, walking room with assist without provocation of chest pain, pressure or palpitations. ROS: reviewed PMH: reviewed IMP/Plan 1; Atypical chest pain has resolved, has ruled out for acute coronary syndrome , continue medical tx. 2. Well compensated chronic systolic heart failure secondary to ischemic cardiomyopathy 3. Left arm numbness, neurology consult pending. 4: Severe single vessel CAD, post PCI with MERLYN RCA 08/23, now with stable class one angina, continue current tx.
--- NOTE | 2017-11-10 10:56 | Internal Med Progress Note ---
Hospitalist Progress Note - Encounter Date of Encounter: 11/10/17 Time of Encounter: 10:53 - Subjective Interval History: presented with chest pain, currently denies any now. No acute changes overnight , no new neuro deficits. continues to have weakness and fatigue - Exam Vitals: Temp Pulse Resp BP Pulse Ox 98.7 F 81 17 164/83 94 11/10/17 08:24 11/10/17 08:24 11/10/17 08:24 11/10/17 08:24 11/10/17 08:24 Exam: PHYSICAL EXAMINATION: GENERAL: The patient is an ill-appearing female in no apparent distress, she is alert and oriented 3 HEENT: Head is normocephalic and atraumatic. Extraocular muscles are intact. Pupils are equal, round, and reactive to light and accommodation. NECK: Supple. No carotid bruits. No lymphadenopathy or thyromegaly. LUNGS: Clear to auscultation. HEART: Regular rate and rhythm , S1, S2, without murmurs rubs or gallops. ABDOMEN: Soft, nontender, and nondistended. Positive bowel sounds. No hepatosplenomegaly was noted. EXTREMITIES: Without any cyanosis, clubbing, rash, lesions or edema. NEUROLOGIC: Cranial nerves II through XII are grossly intact with the exception of some mild left lower extremity diminished under cutting machine operator strength and residual LUE, LLE deficits without increase from baseline. LUE extremity strength 3/5, LLE 5/ 5 - Assessment and Plan (1) Cardiomyopathy Current Visit: No Status: Chronic Assessment and Plan: TTE 08/17/17, EF 25% with severe LV systolic dysfunction, LV wall thickness within normal range Presented this admission with chest pain. Chest pain is resolved and she has had no return of chest pain. Presentation was Atypical review of EKG without significant changes when compared to prior, troponins adynamic. Continue aspirin, statin, beta alayna (changed to Coreg today per cardiology), Plavix Cardiology cont to follow in consultation-appreciate recommendations Pacer interrogation negative for significant events (2) Hyponatremia Current Visit: No Status: Acute Assessment and Plan: improving, serum sodium 132 monitor bmp daily (3) Underweight Current Visit: No Status: Acute Assessment and Plan: Patient with a BMI of 17.8 Dietary supplementation per nutrition recommendations (4) Stable angina Current Visit: Yes Status: Acute Assessment and Plan: Patient reported of chest pain on 11/07/17 with left arm altered sensation today. Serial troponins peaked at 0.04, adynamic History of STEMI 08/23 requiring a MERLYN to RCA [facility] heart catheterization on showed ipsilateral/collateral collateral supply RCA with 100% if are mid RCA. Echocardiogram on 08/17/17 revealed LVEF of 25% with severe left ventricular systolic dysfunction with regional variation. (5) Left arm numbness Current Visit: Yes Status: Chronic Assessment and Plan: chronic lt arm numbness with an intermittent presentation no new neuro deficits; residual deficits exist from prior CVA; I do not believe that these are new neurological deficits neurology seeing in consult; thank you,-rec CT head; findings show no acute intracranial abnormalities currently taking ASA, PLAVIX, continue these meds obtain carotid buplex (6) CAD S/P percutaneous coronary angioplasty Current Visit: Yes Status: Chronic Assessment and Plan: Padma 08/2017 requiring a MERLYN to RCA Cardiology following, switch metoprolol to Coreg Serial troponins adynamic (7) COPD (chronic obstructive pulmonary disease) Current Visit: Yes Status: Chronic Assessment and Plan: Per history, remains stable, continue COPD medications (8) Systolic CHF, chronic Current Visit: Yes Status: Chronic Assessment and Plan: Stable without decompensation, continue home cardiac medications (9) DVT prophylaxis Current Visit: Yes Status: Acute Assessment and Plan: Cont Heparin subcutaneous - Time Spent with Patient Total time spent is greater than 50% in coordination of care (as documented) at patient's floor/unit and/or counseling patient: less than 15 minutes Plan of Care Discussed with: patient Internal Medicine: Result - Labs CBC & Chem 7: 11/10/17 11:11 11/10/17 11:11 - ABG Interpretation ABG results: PT/INR, D-dimer PT 17.2 Seconds (9.4-12.1) H 11/08/17 13:35 Consult Discharge Plan - Plan Referrals: Drew Alaniz, DO [Primary Care Provider] - (1) Cardiomyopathy Qualifiers: Cardiomyopathy type: ischemic Qualified Code(s): I25.5 - Ischemic cardiomyopathy (7) COPD (chronic obstructive pulmonary disease) Qualifiers: COPD type: unspecified COPD Qualified Code(s): J44.9 - Chronic obstructive pulmonary disease, unspecified
[2017-11-10 11:23] LABS: Basophils % 0.5 %; Eosinophils % 0.4 %; Hematocrit 39.4 % (35.3-44.9); Hemoglobin 12.4 g/dL (11.5-15.4); Immature Granulocytes % 0.3 % (0-4); Lymphocytes # 1.1 K/mcL (0.6-4.6); Lymphocytes % 14.3 %; Mean Corpuscular HGB Conc 31.5 g/dL (31.6-35.5); Mean Corpuscular Hemoglobin 26.1 pg (28.0-33.3); Mean Corpuscular Volume 82.8 fL (83.0-100.0); Mean Platelet Volume 9.9 fL (9.4-12.4); Monocytes # 0.7 K/mcL (0.0-1.3); Monocytes % 8.6 %; Neutrophils # 5.8 K/mcL (1.6-8.9); Platelet Count 275 K/mcL (140-400); Red Blood Count 4.76 M/mcL (3.82-4.97); Red Cell Distribution Width 17.6 % (11.5-14.5); Segmented Neutrophils % 75.9 %
[2017-11-10 11:41] LABS: BUN/Creatinine Ratio 22 (6-26); Blood Urea Nitrogen 15 mg/dL (8-23); Calcium 8.7 mg/dL (8.6-10.3); Carbon Dioxide 31 mEq/L (23-29); Chloride 98 mEq/L (98-107); Glucose 125 mg/dL (70-105); Osmolality,Calculated 276 (280-300); Potassium 3.9 mEq/L (3.5-5.1); Sodium 132 mEq/L (136-145); eGFR For Non-African Americans > 60 (> 60)
[2017-11-10 15:28] LABS: Bilirubin,Urine Negative (Negative); Blood,Urine Small (Negative); Clarity,Urine Cloudy (Clear); Color,Urine Yellow (Yellow); Glucose,Urine (UA) Normal (Normal); Ketones,Urine Negative (Negative); Leukocyte Esterase,Urine Large (Negative); Nitrite,Urine Negative (Negative); Protein,Urine Trace mg/dL (Neg-Trace); Specific Gravity,Urine 1.015 (1.010-1.025); Urobilinogen,Urine Normal (Normal)
[2017-11-10 15:30] LABS: Hyaline Casts,Urine None Seen per lpf (None-Few); Squamous Epithelial Cell,Urine Many per lpf (None-Few); WBC,Urine TNTC per hpf (0-3)
[2017-11-10 16:24] LABS: Renal Epithelial Cells,Urine Moderate per hpf (None-Few)
[2017-11-10 16:25] LABS: Bacteria,Urine Moderate per hpf (None-Few)
[2017-11-11 04:25] LABS: Basophils # 0.1 K/mcL (0.0-0.2); Basophils % 0.7 %; Eosinophils # 0.1 K/mcL (0.0-0.6); Eosinophils % 1.7 %; Immature Granulocytes % 0.3 % (0-4); Lymphocytes # 1.4 K/mcL (0.6-4.6); Lymphocytes % 18.8 %; Mean Corpuscular HGB Conc 31.7 g/dL (31.6-35.5); Mean Corpuscular Hemoglobin 25.7 pg (28.0-33.3); Mean Corpuscular Volume 81.2 fL (83.0-100.0); Mean Platelet Volume 9.7 fL (9.4-12.4); Monocytes # 0.7 K/mcL (0.0-1.3); Monocytes % 9.5 %; Neutrophils # 5.2 K/mcL (1.6-8.9); Platelet Count 281 K/mcL (140-400); Red Blood Count 5.05 M/mcL (3.82-4.97); Red Cell Distribution Width 17.5 % (11.5-14.5)
[2017-11-11 04:45] LABS: BUN/Creatinine Ratio 28 (6-26); Blood Urea Nitrogen 16 mg/dL (8-23); Calcium 8.9 mg/dL (8.6-10.3); Carbon Dioxide 30 mEq/L (23-29); Chloride 97 mEq/L (98-107); Glucose 89 mg/dL (70-105); Osmolality,Calculated 277 (280-300); Potassium 3.9 mEq/L (3.5-5.1); Sodium 133 mEq/L (136-145); eGFR For Non-African Americans > 60 (> 60)
[2017-11-11] MEDS: *HR* Heparin 5,000 UNIT/ML VIAL SQ SCH ×3 (05:28→20:27)
[2017-11-11] MEDS: Furosemide 20 MG TABLET PO SCH (09:23)
[2017-11-11] MEDS: Aspirin 81 MG TAB.CHEW PO SCH (09:23)
--- NOTE | 2017-11-11 11:21 | Discharge Summary ---
- NOTES TO OUTPATIENT PROVIDER Notes to Outpatient Provider: Metoprolol changed to Coreg per cardiology, please discuss medication changes patient Orders not resulted at time of discharge: Pending orders 11/12/17 04:00 Basic Metabolic Panel AM 0400 CBC [Complete Blood Count] [HEME] AM 0400 11/13/17 04:00 Basic Metabolic Panel AM 0400 CBC [Complete Blood Count] [HEME] AM 0400 Date of Encounter: 11/11/17 Time of Encounter: 11:17 - Discharge Diagnosis (1) Cardiomyopathy Priority: Primary Status: Chronic Qualifiers: Cardiomyopathy type: ischemic Qualified Code(s): I25.5 - Ischemic cardiomyopathy (2) Hyponatremia Priority: Secondary Status: Acute (3) Underweight Priority: Secondary Status: Acute (4) Stable angina Priority: Secondary Status: Acute (5) Left arm numbness Priority: Secondary Status: Chronic (6) CAD S/P percutaneous coronary angioplasty Priority: Secondary Status: Chronic (7) COPD (chronic obstructive pulmonary disease) Priority: Secondary Status: Chronic Qualifiers: COPD type: unspecified COPD Qualified Code(s): J44.9 - Chronic obstructive pulmonary disease, unspecified (8) Systolic CHF, chronic Priority: Secondary Status: Chronic (9) DVT prophylaxis Priority: Secondary Status: Acute Hospital course: Ms. Jensen is a 67 year old female Discharge discussed with: patient, nurse Time spent discussing smoking cessation with patient: 3 to 10 minutes - Time Spent with Patient Total time spent providing and/or coordinating discharge services: Less than 30 minutes - Discharge Medications Prescriptions: Carvedilol [Coreg] 6.25 mg PO BIDWM 30 Days #60 tablet Home Medications: Clopidogrel [Plavix] 75 mg PO DAILY 08/17/17 [History] Furosemide [Lasix] 20 mg PO DAILY 08/17/17 [History] Omeprazole [PriLOSEC] 20 mg PO DAILY PRN 08/17/17 [History] Aspirin 81 mg PO DAILY #30 tab.chew 08/22/17 [Rx] Atorvastatin [Lipitor] 40 mg PO HS #30 tablet 08/22/17 [Rx] Ferrous Sulfate 325 mg PO DAILY 11/08/17 [History] Carvedilol [Coreg] 6.25 mg PO BIDWM 30 Days #60 tablet 11/11/17 [Rx] Allergies/Adverse Reactions: 3 Allergy/AdvReac Type Severity Reaction Status Date / Time No Known Allergies Allergy Verified 11/08/17 13:59 Date of admission: 11/08/17 14:12 Primary care physician: Drew Alaniz Consults: 11/08/17 16:03 Consult to Nutrition [CONS] Routine Comment: Consulting Provider: NUTRITION Reason for Dietary Consult: Other Other:: Patient underweight; Nutritional supplementation 11/09/17 18:55 Consult to Occupational Therapy [CONS] Routine Comment: Evaluate, develop and implement POC Reason for Consult: Generalized weakness and fatigue, please assess functional capacity Does patient have active BEDREST order?: No Is patient medically & hemodynamically stable?: Yes Patient assessed for mobility or mobilized this visit?: No Consult to Physical Therapy [CONS] Routine Comment: Evaluate, develop and implement POC Reason for Consult: Generalized weakness and fatigue, please assess functional capacity Does patient have active BEDREST order?: No Is patient medically & hemodynamically stable?: Yes Patient assessed for mobility or mobilized this visit?: No 11/09/17 19:00 Consult to Neurology [CONS] Routine Consulting Provider: Neurology [facility] Reason for Consult: LLE weakness, prior h/o CVA, further eval and rec Call Completed: No Discharging clinician: Skyler Dyer Anticipated date of discharge: 11/11/17 - Constitutional Vitals: Temp Pulse Resp BP Pulse Ox 97.9 F 71 18 150/75 95 11/11/17 08:02 11/11/17 08:02 11/11/17 08:02 11/11/17 08:02 11/11/17 09:25 General appearance: Present: A&O X 3, no acute distress Exam: PHYSICAL EXAMINATION: GENERAL: The patient is an ill-appearing female in no apparent distress, she is alert and oriented 3 HEENT: Head is normocephalic and atraumatic. Extraocular muscles are intact. PERRLA NECK: Supple. No carotid bruits. No lymphadenopathy or thyromegaly. LUNGS: Clear to auscultation. HEART: Regular rate and rhythm , S1, S2, without murmurs rubs or gallops. ABDOMEN: Soft, nontender, and nondistended. Positive bowel sounds. No hepatosplenomegaly was noted. EXTREMITIES: Without any cyanosis, clubbing, rash, lesions or edema. NEUROLOGIC: Cranial nerves II through XII are grossly intact with the exception of some mild left lower extremity diminished channel program manager strength and residual LUE, LLE deficits without increase from baseline. LUE extremity strength 3/5, LLE 5/ 5 - Patient Status Condition: Good Overall status at discharge: patient is progressing back to baseline - Discharge Instructions Instructions: Chest Pain (DC), Chronic Obstructive Pulmonary Disease (DC) Follow Up With: Drew Alaniz DO [Primary Care Provider] - - Diet and Activity Activity: increase activity as tolerated, resume usual activities as tolerated Diet: diabetic diet, low fat, low cholesterol, low salt diet
--- NOTE | 2017-11-11 13:09 | Neurology Progress Note ---
Date of Encounter: 11/11/17 Time of Encounter: 11:00 Assessment and Plan (1) Left arm numbness Current Visit: Yes Status: Chronic Likely the result of previous cerebral infarct involving the right parietal and frontal lobe, chronic in nature. CT of head showed no new infarct. Clinically, patient is at her baseline. Keep on Aspirin and plavix. No further testing recommended. Okay to discharge from neurology perspective Subjective Principal diagnosis: left sided weakness/numbness Interval history: Patient seen and examined. She is doing fine and we obtained CT of head without contrast and i reviewed the imagies personally and i agree with chronic infarct at the right frontal parietal region, no evidence of edema or midline shift and also there could be superimposed subacute infarct clinically i think new stroke is unlikely. I ordered carotid artery duplex study and result is still pending. Patient is at her baseline neurologically. yesterday she had some left arm numbness, but today it resolved Objective - Constitutional Vitals: Temp Pulse Resp BP Pulse Ox 98.0 F 66 17 145/52 99 11/11/17 11:23 11/11/17 11:23 11/11/17 11:23 11/11/17 11:23 11/11/17 11:23 - Neurological Exam Sensorimotor examination: Present: intact Motor examination - left side: 4/5: biceps, triceps, wrist flexion, wrist extension, community service representative, 5/5: deltoids, hip flexors, quadriceps, tibialis Anterior, toe extension (EHL), plantarflexion Sensation intact: Present: light touch Reflex and gait examination: intact Mental Status Examination: Present: awake, alert, oriented to person, oriented to place, oriented to time, follows commands appropriately, answers questions appropriately, no aphasia Results - Laboratory Findings CBC and BMP: 11/11/17 04:11 11/11/17 04:11 Abnormal lab findings: Abnormal lab results RBC 5.05 M/mcL (3.82-4.97) H 11/11/17 04:11 MCV 81.2 fL (83.0-100.0) L 11/11/17 04:11 MCH 25.7 pg (28.0-33.3) L 11/11/17 04:11 RDW 17.5 % (11.5-14.5) H 11/11/17 04:11 Immature Plt Fraction 6.5 % (1.1-6.1) H 11/08/17 13:35 PT 17.2 Seconds (9.4-12.1) H 11/08/17 13:35 APTT 37.1 Seconds (26.0-36.0) H 11/08/17 13:35 Sodium 133 mEq/L (136-145) L 11/11/17 04:11 Chloride 97 mEq/L (98-107) L 11/11/17 04:11 Carbon Dioxide 30 mEq/L (23-29) H 11/11/17 04:11 Creatinine 0.58 mg/dL (0.60-1.20) L 11/11/17 04:11 BUN/Creatinine Ratio 28 (6-26) H 11/11/17 04:11 Calculated Osmolality 277 (280-300) L 11/11/17 04:11 Troponin I 0.04 ng/mL (< 0.04) H* 11/09/17 06:52 Urine Clarity Cloudy (Clear) A 11/10/17 15:00 Urine Blood Small (Negative) H 11/10/17 15:00 Ur Leukocyte Esterase Large (Negative) H 11/10/17 15:00 Urine Microscopic RBC 3-5 per hpf (0-3) H 11/10/17 15:00 Urine Microscopic WBC TNTC per hpf (0-3) H 11/10/17 15:00 Ur Squamous Epith Cells Many per lpf (None-Few) H 11/10/17 15:00 Ur Renal Epithelial Cell Moderate per hpf (None-Few) H 11/10/17 15:00 Urine Bacteria Moderate per hpf (None-Few) H 11/10/17 15:00 Ur Culture Indicated? NO. (NO) A 11/10/17 15:00 - Diagnostic Findings Additional findings: CT OF THE HEAD WITHOUT CONTRAST 11/10/2017 1:17 pm TECHNIQUE: CT of the head was performed without the administration of intravenous contrast. Dose modulation, iterative reconstruction, and/or weight based adjustment of the mA/kV was utilized to reduce the radiation dose to as low as reasonably achievable. COMPARISON: None. HISTORY: ORDERING SYSTEM PROVIDED HISTORY: CVA Left arm numbness today. History of stroke. Initial examination. FINDINGS: BRAIN/VENTRICLES: There is encephalomalacia and gliosis within the posterior right frontal lobe, which extends into the temporal lobe. No significant mass effect or midline shift. No intracranial hemorrhage. The posterior fossa is within normal limits. There are mild low-attenuation changes in the periventricular white matter, compatible with chronic microvascular ischemic related gliosis. ORBITS: The visualized portion of the orbits demonstrate no acute abnormality. SINUSES: The visualized paranasal sinuses and mastoid air cells demonstrate no acute abnormality. SOFT TISSUES/SKULL: No acute abnormality of the visualized skull or soft tissues. CT/CT head/brain wo con IMPRESSION: Right posterior frontal and temporal lobe infarct, the majority of which appears chronic. However, there may be a superimposed acute/subacute component superiorly. Further evaluation with MRI is recommended if there is a clinical concern for an acute infarct. No hemorrhage. Results of this examination were communicated to the patient's nurse, Kath Springer, at 1:41 p.m. on 11/10/2017 by the [facility]. D/ / 11/10/2017 14:05:00 Rey Manuel MD / corinna Interpreting Provider: Rey Manuel MD Consult Discharge Plan - Plan Instructions: Chest Pain (DC), Chronic Obstructive Pulmonary Disease (DC) Referrals: Drew Alaniz DO [Primary Care Provider] - Prescriptions: Carvedilol [Coreg] 6.25 mg PO BIDWM 30 Days #60 tablet
[2017-11-11] MEDS ORDERED: Isovue-370 500 ML INFUS..BTL IV ONE (17:42)
--- NOTE | 2017-11-11 17:48 | Vascular/Endovasc Consult Note ---
Date of Encounter: 11/11/17 Time of Encounter: 17:00 Assessment and Plan (1) COPD (chronic obstructive pulmonary disease) Current Visit: Yes Status: Chronic Patient has long history of chronic COPD and tobacco abuse. Qualifiers: COPD type: unspecified COPD Qualified Code(s): J44.9 - Chronic obstructive pulmonary disease, unspecified (2) Systolic CHF, chronic Current Visit: Yes Status: Chronic Patient has history of systolic congestive heart failure with ejection fraction of 25%. (3) Left arm numbness Current Visit: Yes Status: Chronic Patient has a combination of acute and chronic symptoms affecting her left upper extremity. It is difficult to ascertain these symptoms as from a left subclavian steal syndrome phenomenon. By duplex scan she demonstrates the appropriate anatomy with blood pressure asymmetry and reversal of flow in the left vertebral artery coupled with a left supraclavicular bruit. I recommended that we obtain a CT angiogram of her neck to complete the evaluation of this cerebrovascular status. At this point I do not think she needs urgent intervention. She is not a candidate for any direct open revascularization such as a subclavian carotid artery bypass graft. If she is deemed in the future to have significant issues the only therapy that would be offered her would be an endovascular technique with a left subclavian artery stent angioplasty. This was explained to the patient. She agrees to proceed with the CT angiogram for further clarification. (4) Stroke Current Visit: Yes Status: Chronic Patient has a history of a right hemispheric stroke. The details of this stroke and its treatment are unknown at the time of this dictation. Qualifiers: CVA mechanism: unspecified Qualified Code(s): I63.9 - Cerebral infarction, unspecified - History of Present Illness Consult date: 11/11/17 Consult reason: Abnormal carotid duplex scan Chief complaint: Chest pain and left upper extremity symptoms History of present illness: Ms. Jensen is a 67 year old female Who was admitted a few days ago because of chest pain and left upper extremity numbness. The patient had mild elevation of her troponin and she wondered went evaluation with cardiology as well as with neurology. The chest pain and left upper extremity symptoms have for the most part resolved. She has chronic left upper extremity and left lower extremity numbness and tingling and a sensation of coolness. She does have a history of a right hemispheric stroke. In addition she has a history of coronary artery disease, coronary stents 3, cardiomyopathy , ejection fraction 25%, AICD, hyperlipidemia, COPD, hypertension, and tobacco abuse. The patient had a duplex scan performed this morning which was abnormal. First that showed a significant blood pressure measurement difference between the right and left side with the right brachial pressure 170 mmHg and the left at 130 mmHg. The diastolic pressure was essentially the same. There also was demonstrated left vertebral retrograde flow which would be consistent with subclavian steal anatomy. In addition the patient has bilateral internal carotid artery stenoses of approximate 60-79%. The patient is unsure as to the details of her stroke. She believes that she was seen and treated at [facility] in [facility] for this process. Of note the patient is on double antiplatelet therapy with aspirin and Plavix and is also on statin agents. Past Med Surg Social Fam HX - Past Medical History Medical history: CHF, COPD, coronary artery disease, CVA, hyperlipidemia, hypertension Psychiatric history: no psych history - Past Surgical History Surgical History: AICD Additional surgical history: tubal, heart stents "maybe 2" - Social History Smoking Status: Current every day smoker Packs per day: 1 Smokeless Tobacco Status: No Alcohol use: none Drug use: none - Family History Father Hx Family Cardiac Disorders: Yes (Father with LA) Medications and Allergies Clopidogrel [Plavix] 75 mg PO DAILY 08/17/17 [History] Furosemide [Lasix] 20 mg PO DAILY 08/17/17 [History] Omeprazole [PriLOSEC] 20 mg PO DAILY PRN 08/17/17 [History] Aspirin 81 mg PO DAILY #30 tab.chew 08/22/17 [Rx] Atorvastatin [Lipitor] 40 mg PO HS #30 tablet 08/22/17 [Rx] Ferrous Sulfate 325 mg PO DAILY 11/08/17 [History] Carvedilol [Coreg] 6.25 mg PO BIDWM 30 Days #60 tablet 11/11/17 [Rx] 3 Allergy/AdvReac Type Severity Reaction Status Date / Time No Known Allergies Allergy Verified 11/08/17 13:59 All Systems Review: The remainder of the systems were reviewed and are negative Exam Vital Signs, Last 4 Hours Temp Pulse Resp BP Pulse Ox 11/11/17 15:39 97.9 F 65 18 158/74 98 General: Present: Conversant, No Apparent Distress, Other (The patient is a very thin and ill appearing white female who looks older than her stated age.) HEENT: Present: Atraumatic, Normocephaly (Muscle wasting of the face and neck), Trachea midline, Pupils equal Neck: Present: Other (Left supraclavicular bruit). Absent: JVD, Left Carotid bruit, Right Carotid bruit, Midline deformity, Tracheal deviation Cardiac: Present: Reg Rate and Rhythm, No Murmur. Absent: Irregular Rhythm Lungs: Present: Decreased breath sounds Neuro: Present: Alert and responsive, Cranial nerves grossly intact, Other ( Decreased left upper extremity and left lower extremity fine motor control and strength.) Abdomen: Present: Soft, Non-tender, Other (No abdominal bruits). Absent: Hepatosplenomegaly, Masses Vascular: Present: Normal capillary refill, Pulse, normal, Edema (Mild 1+ left lower extremity edema), Color/Temperature (Color and temperature of the hands and feet are symmetrical). Absent: Bruit, Cyanosis, Amputation(s) Skin: Present: No rashes noted on visualized skin. Absent: Wound/ulcer(s) Consult Discharge Plan - Plan Instructions: Chest Pain (DC), Chronic Obstructive Pulmonary Disease (DC) Referrals: Drew Alaniz DO [Primary Care Provider] - Prescriptions: Carvedilol [Coreg] 6.25 mg PO BIDWM 30 Days #60 tablet
--- NOTE | 2017-11-11 18:31 | Internal Med Progress Note ---
Hospitalist Progress Note - Encounter Date of Encounter: 11/11/17 Time of Encounter: 18:38 - Subjective Interval History: presented with chest pain, currently denies any now. No acute changes overnight , no new neuro deficits. continues to have weakness and fatigue but is improving and progressing back to baseline - Exam Vitals: Temp Pulse Resp BP Pulse Ox 97.9 F 65 18 158/74 98 11/11/17 15:39 11/11/17 15:39 11/11/17 15:39 11/11/17 15:39 11/11/17 15:39 Exam: PHYSICAL EXAMINATION: GENERAL: The patient is an ill-appearing female in no apparent distress, she is alert and oriented 3 HEENT: Head is normocephalic and atraumatic. Extraocular muscles are intact. PERRLA NECK: Supple. Left subclavian bruit, No lymphadenopathy or thyromegaly. LUNGS: Clear to auscultation. HEART: Regular rate and rhythm , S1, S2, without murmurs rubs or gallops. ABDOMEN: Soft, nontender, and nondistended. Positive bowel sounds. No hepatosplenomegaly was noted. EXTREMITIES: Without any cyanosis, clubbing, rash, lesions or edema. NEUROLOGIC: Cranial nerves II through XII are grossly intact with the exception of some mild left lower extremity diminished polysomnography tech strength and residual LUE, LLE deficits without increase from baseline. LUE extremity strength 3/5, LLE 5/ 5 - Assessment and Plan (1) Cardiomyopathy Current Visit: No Status: Chronic Assessment and Plan: TTE 08/17/17, EF 25% with severe LV systolic dysfunction, LV wall thickness within normal range Presented this admission with chest pain. Chest pain is resolved and she has had no return of chest pain. Presentation was Atypical review of EKG without significant changes when compared to prior, troponins adynamic. Continue aspirin, statin, beta alayna (changed to Coreg today per cardiology), Plavix Pacer interrogation negative for significant events (2) Left arm numbness Current Visit: Yes Status: Resolved Assessment and Plan: Acute and chronic lt arm numbness with an intermittent presentation no new neuro deficits; residual deficits exist from prior CVA; I do not believe that these are new neurological deficits neurology seeing in consult; thank you,-rec CT head; findings show no acute intracranial abnormalities Carotid duplex indicating subclavian steal anatomy without subclavian steal syndrome Obtain CT angiogram for further evaluation of neck-pending completion Vascular surgeon seeing in consultation-appreciate recommendations a candidate for direct open revascularization; the future if patient is symptomatic she may benefit from elective left subclavian artery stent. She will follow with Dr. Iniguez outpatient currently taking ASA, PLAVIX, continue these meds (3) Hyponatremia Current Visit: No Status: Acute Assessment and Plan: Improving (4) Underweight Current Visit: No Status: Acute Assessment and Plan: Patient with a BMI of 17.8 Dietary supplementation per nutrition recommendations Unclear of cause for weight loss (5) Stable angina Current Visit: Yes Status: Acute Assessment and Plan: Patient reported of chest pain on 11/07/17 with left arm altered sensation today. Serial troponins peaked at 0.04, adynamic History of STEMI 08/23 requiring a [facility] to [facility] heart catheterization on showed ipsilateral/collateral collateral supply RCA with 100% if are mid RCA. Echocardiogram on 08/17/17 revealed LVEF of 25% with severe left ventricular systolic dysfunction with regional variation. (6) CAD S/P percutaneous coronary angioplasty Current Visit: Yes Status: Chronic Assessment and Plan: STEMI 08/2017 requiring a MERLYN to [facility] Cardiology following, switch metoprolol to Coreg Serial troponins adynamic (7) COPD (chronic obstructive pulmonary disease) Current Visit: Yes Status: Chronic Assessment and Plan: Per history, remains stable, continue COPD medications (8) Systolic CHF, chronic Current Visit: Yes Status: Chronic Assessment and Plan: Stable without decompensation, continue home cardiac medications (9) DVT prophylaxis Current Visit: Yes Status: Acute Assessment and Plan: Cont Heparin subcutaneous - Time Spent with Patient Total time spent is greater than 50% in coordination of care (as documented) at patient's floor/unit and/or counseling patient: less than 15 minutes Plan of Care Discussed with: patient Internal Medicine: Result - Labs CBC & Chem 7: 11/11/17 04:11 11/11/17 04:11 Labs: Short CBC 11/11/17 Range/Units 04:11 WBC 7.6 (4.3-11.1) K/mcL Hgb 13.0 (11.5-15.4) g/dL Hct 41.0 (35.3-44.9) % Plt Count 281 (140-400) K/mcL Neutrophils # 5.2 (1.6-8.9) K/mcL BMP 11/11/17 04:11 Sodium 133 L Potassium 3.9 Chloride 97 L Carbon Dioxide 30 H BUN 16 Creatinine 0.58 L Glucose 89 Calcium 8.9 - ABG Interpretation ABG results: PT/INR, D-dimer PT 17.2 Seconds (9.4-12.1) H 11/08/17 13:35 Consult Discharge Plan - Plan Instructions: Chest Pain (DC), Chronic Obstructive Pulmonary Disease (DC) Referrals: Drew Alaniz DO [Primary Care Provider] - Prescriptions: Carvedilol [Coreg] 6.25 mg PO BIDWM 30 Days #60 tablet (1) Cardiomyopathy Qualifiers: Cardiomyopathy type: ischemic Qualified Code(s): I25.5 - Ischemic cardiomyopathy (7) COPD (chronic obstructive pulmonary disease) Qualifiers: COPD type: unspecified COPD Qualified Code(s): J44.9 - Chronic obstructive pulmonary disease, unspecified
--- NOTE | 2017-11-11 23:27 | Electrocardiograph Report ---
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
--- NOTE | 2017-11-11 23:31 | Electrocardiograph Report ---
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
[2017-11-12] MEDS: *HR* Heparin 5,000 UNIT/ML VIAL SQ SCH ×2 (05:28→15:45)
[2017-11-12 05:40] LABS: Basophils # 0.1 K/mcL (0.0-0.2); Basophils % 0.9 %; Eosinophils # 0.1 K/mcL (0.0-0.6); Eosinophils % 1.4 %; Hematocrit 36.8 % (35.3-44.9); Hemoglobin 11.6 g/dL (11.5-15.4); Immature Granulocytes % 0.4 % (0-4); Lymphocytes # 1.3 K/mcL (0.6-4.6); Lymphocytes % 18.9 %; Mean Corpuscular HGB Conc 31.5 g/dL (31.6-35.5); Mean Corpuscular Hemoglobin 25.4 pg (28.0-33.3); Mean Corpuscular Volume 80.7 fL (83.0-100.0); Mean Platelet Volume 10.4 fL (9.4-12.4); Monocytes # 0.7 K/mcL (0.0-1.3); Monocytes % 9.7 %; Neutrophils # 4.8 K/mcL (1.6-8.9); Platelet Count 266 K/mcL (140-400); Red Blood Count 4.56 M/mcL (3.82-4.97); Red Cell Distribution Width 17.3 % (11.5-14.5); Segmented Neutrophils % 68.7 %
[2017-11-12 05:53] LABS: BUN/Creatinine Ratio 28 (6-26); Blood Urea Nitrogen 17 mg/dL (8-23); Calcium 8.9 mg/dL (8.6-10.3); Carbon Dioxide 30 mEq/L (23-29); Chloride 95 mEq/L (98-107); Glucose 85 mg/dL (70-105); Osmolality,Calculated 275 (280-300); Potassium 3.9 mEq/L (3.5-5.1); Sodium 132 mEq/L (136-145); eGFR For Non-African Americans > 60 (> 60)
[2017-11-12] MEDS: Aspirin 81 MG TAB.CHEW PO SCH (07:49)
[2017-11-12] MEDS: Furosemide 20 MG TABLET PO SCH (07:49)
[2017-11-12 11:53] VITALS: BP 151/69
--- NOTE | 2017-11-12 15:41 | Discharge Summary ---
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 Monitor. f/u with Dr. Pan in 3-months Orders not resulted at time of discharge: Pending orders 11/13/17 04:00 Basic Metabolic Panel AM 0400 CBC [Complete Blood Count] [HEME] AM 0400 Date of Encounter: 11/12/17 Time of Encounter: 15:39 - Discharge Diagnosis (1) Cardiomyopathy Priority: Primary Status: Chronic Qualifiers: Cardiomyopathy type: ischemic Qualified Code(s): I25.5 - Ischemic cardiomyopathy (2) Left arm numbness Priority: Secondary Status: Resolved Assessment and Plan: Acute and chronic lt arm numbness with an intermittent presentation no new neuro deficits; residual deficits exist from prior CVA; I do not believe that these are new neurological deficits neurology seeing in consult; thank you,-rec CT head; findings show no acute intracranial abnormalities Carotid duplex indicating subclavian steal anatomy without subclavian steal syndrome CT angiogram reveals left subclavian occlusion Vascular surgeon seeing in consultation-appreciate recommendations; not a candidate for direct open revascularization; the future if patient is symptomatic she may benefit from elective left subclavian artery stent To follow-up with Dr. Pan in 3 months currently taking ASA, PLAVIX, continue these meds (3) Hyponatremia Priority: Secondary Status: Acute (4) Underweight Priority: Secondary Status: Acute (5) Stable angina Priority: Secondary Status: Acute (6) CAD S/P percutaneous coronary angioplasty Priority: Secondary Status: Chronic (7) COPD (chronic obstructive pulmonary disease) Priority: Secondary Status: Chronic Qualifiers: COPD type: unspecified COPD Qualified Code(s): J44.9 - Chronic obstructive pulmonary disease, unspecified (8) Systolic CHF, chronic Priority: Secondary Status: Chronic (9) DVT prophylaxis Priority: Secondary Status: Acute Hospital course: Ms. Jensen is a 67 year old female who presented with left-sided chest pains. Upon of adynamic elevated troponin 0.04, ACS ruled out. During stay patient was thought to have some intermittent left upper extremity weakness, reporting also numbness and tingling of the left upper extremity as well as dizziness with activity. Assessment revealed left-sided pulse pressure deficits, and left subclavian bruit. Carotid duplex revealed subclavian steal anatomy, given presentation likely having subclavian steal syndrome. CTA head and neck reveals occluded left subclavian artery. Vascular surgery sitting in consultation throughout stay, patient not a candidate for open surgery, should she become symptomatic patient may benefit from intervention in the future. At this time continue with aspirin and Plavix as well as statin. Follow up with vascular surgeon in 3 months. Uneventful hospital course, being discharged home with home health; nurse navigator setting home PT/OT. PT/OT recommended SNF for discharge however, patient refused. Discharge discussed with: patient, nurse, senior staff consultant - Time Spent with Patient Total time spent providing and/or coordinating discharge services: Less than 30 minutes - Discharge Medications Prescriptions: Carvedilol [Coreg] 6.25 mg PO BIDWM 30 Days #60 tablet Home Medications: Clopidogrel [Plavix] 75 mg PO DAILY 08/17/17 [History] Furosemide [Lasix] 20 mg PO DAILY 08/17/17 [History] Omeprazole [PriLOSEC] 20 mg PO DAILY PRN 08/17/17 [History] Aspirin 81 mg PO DAILY #30 tab.chew 08/22/17 [Rx] Atorvastatin [Lipitor] 40 mg PO HS #30 tablet 08/22/17 [Rx] Ferrous Sulfate 325 mg PO DAILY 11/08/17 [History] Carvedilol [Coreg] 6.25 mg PO BIDWM 30 Days #60 tablet 11/11/17 [Rx] Allergies/Adverse Reactions: 3 Allergy/AdvReac Type Severity Reaction Status Date / Time No Known Allergies Allergy Verified 11/08/17 13:59 Date of admission: 11/08/17 14:12 Primary care physician: Drew Alaniz Consults: 11/08/17 16:03 Consult to Nutrition [CONS] Routine Comment: Consulting Provider: NUTRITION Reason for Dietary Consult: Other Other:: Patient underweight; Nutritional supplementation 11/09/17 18:55 Consult to Occupational Therapy [CONS] Routine Comment: Evaluate, develop and implement POC Reason for Consult: Generalized weakness and fatigue, please assess functional capacity Does patient have active BEDREST order?: No Is patient medically & hemodynamically stable?: Yes Patient assessed for mobility or mobilized this visit?: No Consult to Physical Therapy [CONS] Routine Comment: Evaluate, develop and implement POC Reason for Consult: Generalized weakness and fatigue, please assess functional capacity Does patient have active BEDREST order?: No Is patient medically & hemodynamically stable?: Yes Patient assessed for mobility or mobilized this visit?: No 11/09/17 19:00 Consult to Neurology [CONS] Routine Consulting Provider: [facility] Reason for Consult: LLE weakness, prior h/o CVA, further eval and rec Call Completed: No 11/11/17 18:37 Consult to Vascular Surgery [CONS] Routine Consulting Provider: Vascular Surgery [facility] Reason for Consult: Subclavian steal on carotid duplex Time Notified: 18:37 Call Completed: Yes Discharging clinician: Skyler Dyer Anticipated date of discharge: 11/12/17 - Constitutional Vitals: Temp Pulse Resp BP Pulse Ox 98.0 F 62 17 151/69 99 11/12/17 11:52 11/12/17 11:52 11/12/17 11:52 11/12/17 11:52 11/12/17 11:52 General appearance: Present: A&O X 3, no acute distress Exam: PHYSICAL EXAMINATION: GENERAL: The patient is an ill-appearing female in no apparent distress, she is alert and oriented 3 HEENT: Head is normocephalic and atraumatic. Extraocular muscles are intact. PERRLA NECK: Supple. Left subclavian bruit, No lymphadenopathy or thyromegaly. LUNGS: Clear/diminished to auscultation. HEART: Regular rate and rhythm , S1, S2, without murmurs rubs or gallops. ABDOMEN: Soft, nontender, and nondistended. Positive bowel sounds. No hepatosplenomegaly was noted. EXTREMITIES: Without any cyanosis, clubbing, rash, lesions or edema. NEUROLOGIC: Cranial nerves II through XII are grossly intact with residual LUE, LLE deficits without increase from baseline. LUE extremity strength 3/5, LLE 5/ 5 - Patient Status Disposition: Home Health Service Condition: Good Functional capacity at discharge: wheelchair bound Overall status at discharge: patient is progressing back to baseline - Discharge Instructions Instructions: Chest Pain (DC), Chronic Obstructive Pulmonary Disease (DC) Follow Up With: Drew Alaniz DO [Primary Care Provider] - 11/25/17 2:20 pm - Diet and Activity Activity: increase activity as tolerated, resume usual activities as tolerated Diet: diabetic diet, low fat, low cholesterol, low salt diet
--- NOTE | 2017-11-12 15:55 | Physician Discharge Referral ---
Home Health/Hosp Referral Info Transfer to: Home Health Provider in Charge Post Discharge: PCP - Diagnosis (1) Cardiomyopathy Priority: Primary Status: Chronic (2) Left arm numbness Priority: Secondary Status: Resolved (3) Hyponatremia Priority: Secondary Status: Acute (4) Underweight Priority: Secondary Status: Acute (5) Stable angina Priority: Secondary Status: Acute (6) CAD S/P percutaneous coronary angioplasty Priority: Secondary Status: Chronic (7) COPD (chronic obstructive pulmonary disease) Priority: Secondary Status: Chronic (8) Systolic CHF, chronic Priority: Secondary Status: Chronic (9) DVT prophylaxis Priority: Secondary Status: Acute - Respiratory Orders Smoking Cessation: Smoking cessation has been advised. For more information, call the [place] Tobacco Quit Line at 8-231-RHFQ-NOW. - Diet/Nutrition Diet/Nutrition Orders: Cardiac - Activity Activity Orders: Chair, Walker (With assistance) - Services Needed Following services are medically necessary services: Nursing, Home Health Aide, Physical Therapy, Occupational Therapy - Transfer Medications Prescriptions: Carvedilol [Coreg] 6.25 mg PO BIDWM 30 Days #60 tablet Home Medications: Clopidogrel [Plavix] 75 mg PO DAILY 08/17/17 [History] Furosemide [Lasix] 20 mg PO DAILY 08/17/17 [History] Omeprazole [PriLOSEC] 20 mg PO DAILY PRN 08/17/17 [History] Aspirin 81 mg PO DAILY #30 tab.chew 08/22/17 [Rx] Atorvastatin [Lipitor] 40 mg PO HS #30 tablet 08/22/17 [Rx] Ferrous Sulfate 325 mg PO DAILY 11/08/17 [History] Carvedilol [Coreg] 6.25 mg PO BIDWM 30 Days #60 tablet 11/11/17 [Rx] Allergies/Adverse Reactions: 3 Allergy/AdvReac Type Severity Reaction Status Date / Time No Known Allergies Allergy Verified 11/08/17 13:59 Certification: Further, I certify that my clinical findings support that this patient is homebound (i.e. absences from home require considerable and taxing effort and are for medical reasons or [facility] services or infrequently or short duration when for other reasons) because: Homebound Reason: Patient requires assistance of a person or device to safely leave home Attestation: My signature below is to certify that this patient is under my care and that I, or nurse practitioner, or a physician's neurosurgical physician assistant working with me, has a face-to -face encounter with this patient.
--- NOTE | 2017-11-12 16:11 | Vascular/[facility] Progress Note ---
Date of Encounter: 11/12/17 Time of Encounter: 15:15 - Assessment and plan (1) COPD (chronic obstructive pulmonary disease) Current Visit: Yes Status: Chronic Patient has long history of chronic COPD and tobacco abuse. Qualifiers: COPD type: unspecified COPD Qualified Code(s): J44.9 - Chronic obstructive pulmonary disease, unspecified (2) Systolic CHF, chronic Current Visit: Yes Status: Chronic Patient has history of systolic congestive heart failure with ejection fraction of 25%. (3) Left arm numbness Current Visit: Yes Status: Resolved Patient has a combination of acute and chronic symptoms affecting her left upper extremity. It is difficult to ascertain these symptoms as from a left subclavian steal syndrome phenomenon. By duplex scan she demonstrates the appropriate anatomy with blood pressure asymmetry and reversal of flow in the left vertebral artery coupled with a left supraclavicular bruit. I recommended that we obtain a CT angiogram of her neck to complete the evaluation of this cerebrovascular status. At this point I do not think she needs urgent intervention. She is not a candidate for any direct open revascularization such as a subclavian carotid artery bypass graft. If she is deemed in the future to have significant issues the only therapy that would be offered her would be an endovascular technique with a left subclavian artery stent angioplasty. This was explained to the patient. She agrees to proceed with the CT angiogram for further clarification. As noted elsewhere the patient had a CT Anja Steven of the neck. This demonstrates proximal left subclavian artery occlusion. Of note the patient also has some proximal left vertebral artery stenosis. At this point the patient 's overall physical condition is compromised and the left subclavian artery does not appear to be symptomatic. Therefore I recommended that we do not proceed with attempts at endovascular repair of the subclavian artery occlusion. I have asked the patient to follow-up with me in 3 months as an outpatient in my clinic to reevaluate her clinical status. All questions were answered. (4) Stroke Current Visit: Yes Status: Chronic Patient has a history of a right hemispheric stroke. The details of this stroke and its treatment are unknown at the time of this dictation. Qualifiers: CVA mechanism: unspecified Qualified Code(s): I63.9 - Cerebral infarction, unspecified - Subjective Interval history: Patient is status post CT angiogram of the neck. This demonstrates a left subclavian artery occlusion in its proximal aspect. The results of the CT Nika Harris were reviewed with the patient. The patient has no new complaints today. - Physical Examination General: Present: Conversant, No Apparent Distress, Other (Elderly appearing white female) Neuro: Present: Alert and responsive, No focal deficits noted Results 11/12/17 04:31 11/12/17 04:31 Lab Results, Last 24 hours 11/12/17 11/12/17 04:31 04:31 WBC 7.0 Hgb 11.6 Hct 36.8 Plt Count 266 Sodium 132 L Potassium 3.9 Chloride 95 L Carbon Dioxide 30 H BUN 17 Creatinine 0.61 Glucose 85 Calcium 8.9 - Imaging / Other Tests CT/CTA: report reviewed, image reviewed Consult Discharge Plan - Plan Instructions: Chest Pain (DC), Chronic Obstructive Pulmonary Disease (DC) Referrals: Drew Alaniz DO [Primary Care Provider] - 11/25/17 2:20 pm Mehul Pan MD [Partnered Physician] - (3 months) Prescriptions: Carvedilol [Coreg] 6.25 mg PO BIDWM 30 Days #60 tablet
== END 2017-11-12 16:00 | disposition home health service (06) ==
LOC: EMEROOARM 12:06 → 3BNU 12:06 → SUATTDRO 14:12 → 3BNU 17:21
PROVIDERS: ADMIT Student in an Organized Health Care Education/Training Program; ATTEND Hospitalist

== ENCOUNTER 2018-04-03 16:42 | Inpatient (IN) ==
[2018-04-03] MEDS ORDERED: Isovue-370 500 ML BOTTLE IVP ONE (17:09)
--- NOTE | 2018-04-03 17:10 | Emergency Department Note ---
Disposition Clinical Impression: Renal mass, Pleural effusion Pneumonia Qualifiers: Pneumonia type: due to unspecified organism Laterality: left Lung location: lower lobe of lung Qualified Code(s): J18.1 - Lobar pneumonia, unspecified organism Sepsis Qualifiers: Sepsis type: sepsis due to unspecified organism Qualified Code(s): A41.9 - Sep sis, unspecified organism Disposition: Still a Patient Condition: Good Referrals: Drew Alaniz DO [Primary Care Provider] - Forms: ED Satisfaction Letter, Work/School Release Time of Disposition: 18:51 General Adult HPI - General Chief complaint: ED General Medical Stated complaint: General Illness Time Seen by Provider: 04/03/18 16:44 Source: patient, EMS Mode of arrival: EMS Limitations: altered mental status (Patient is alert and oriented 3, however continues to say that she does not know what is going on and what has happened in the past.) Nursing Notes Reviewed: Yes Vital Signs Reviewed: Yes - History of Present Illness HPI Narrative: Patient is a 67-year-old female presenting with multiple complaints. Patient is presenting from home via EMS with complaints of left-sided sensation changes. Patient has history of CVA, hypertension, hyperlipidemia, COPD. Patient states that starting yesterday she started to notice increased left-sided sensation changes, she does have residual left-sided weakness and sensation decreased on her left upper and lower extrude he. She states last night this became more significant and felt concerned. She states that she did not fall or hit her head. She states she is also had cough, was recently discharged proximal and one month ago from [facility] for pneumonia. She denies fever or chills. She also states she has had some nausea with vomiting, no diarrhea, however does have abdominal pain throughout the middle of her abdomen, described as a very sharp shooting in nature. When asked about past events, patient s tates that she is sometimes confused and does not always remember things that have happened. She states that is her normal. There are no family is at bedside. She states she currently lives at home with her as well as her son. Patient also states she has chronic source of breath is on oxygen at home, shows a states at times she will have chest pain when she coughs. Pain Scale: 0 - Related Data Home Medications Medication Instructions Recorded Confirmed Clopidogrel [Plavix] 75 mg PO DAILY 08/17/17 11/08/17 Furosemide [Lasix] 20 mg PO DAILY 08/17/17 11/08/17 Omeprazole [PriLOSEC] 20 mg PO DAILY PRN 08/17/17 11/08/17 Ferrous Sulfate 325 mg PO DAILY 11/08/17 11/08/17 Previous Rx's Medication Instructions Recorded Aspirin 81 mg PO DAILY #30 tab.chew 08/22/17 Atorvastatin [Lipitor] 40 mg PO HS #30 tablet 08/22/17 Carvedilol [Coreg] 6.25 mg PO BIDWM 30 Days #60 tablet 11/11/17 Allergies Allergy/AdvReac Type Severity Reaction Status Date / Time No Known Allergies Allergy Verified 11/08/17 13:59 All systems ED: reviewed and negative except as stated. Review of Systems: As Per HPI Constitutional: Denies: fever, chills ENT ED: Denies: congestion Cardiovascular: Reports: chest pain, dyspnea on exertion. Denies: palpitations, syncope Respiratory: Reports: cough, sputum production. Denies: dyspnea, wheezes, hemoptysis Gastrointestinal: Reports: abdominal pain, nausea, vomiting. Denies: diarrhea, constipation, hematemesis, melena, hematochezia Genitourinary: Denies: urgency, dysuria, frequency, hematuria Musculoskeletal: Denies: back pain Integumentary: Denies: rash Neurological: Reports: weakness, numbness. Denies: headache, confusion Endocrine: Reports: fatigue Past Medical History - Past Medical History Attestation: Yes The following information was validated with the patient. 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 history - Social History Smoking Status: Current every day smoker Smokeless Tobacco Status: No Alcohol use: Reports: none Drug use: Reports: none Physical Exam - General Limitations: no limitations, other (Patient also throughout the conversation, states that sometimes she does become confused, does not always remember facts from the past) General appearance: alert, in no apparent distress, other (Patient is very ski nny, somewhat cachectic in appearance) - Head Head exam: atraumatic, normocephalic, normal inspection - Eye Eye exam: Present: normal appearance, PERRL, EOMI - ENT ENT exam: normal exam, normal oropharynx, mucous membranes dry - Neck Neck exam: Present: normal inspection, full ROM, trachea midline - Chest Chest inspection: Present: normal inspection, symmetric chest wall rise - Respiratory Respiratory exam: Present: other (Decreased breath sounds throughout, there are no wheezing, there is a prolonged expiratory phase, there are few crackles to the left, but clear when coughed) - Cardiovascular Cardiovascular exam: Present: regular rate, normal rhythm, normal heart sounds - Abdominal Exam Abdominal exam: Present: soft, tenderness (Tenderness to palpation throughout the entire abdomen, greatest per patient today midepigastric region, there is no guarding or rebound). Absent: distention, guarding, rebound, rigidity - Extremities Exam Extremities exam: Present: normal inspection, full ROM, normal capillary refill. Absent: tenderness, pedal edema - Expanded Lower Extremity Exam Gait: not tested/not observed - Back Exam Back exam: Absent: vertebral tenderness - Neurological Exam Neurological exam: Present: alert, oriented X3, CN II-XII intact - Expanded Neurological Exam Patient oriented to: Present: person, place, time Speech: Present: fluid speech Cranial nerves: EOM function (II, III, IV, ): Normal, facial sensation (V): Normal, facial palsy (VII): Normal, gag reflex (IX): Normal, spinal accessory function (XI): Normal, tongue deviation (XII): Normal Motor strength - LUE: 2/5 Motor strength - RUE: 4/5 Motor strength - LLE: 2/5 Motor strength - RLE: 4/5 Upper motor neuron exam: ora neglect: Absent bilaterally Sensory exam upper extremity: light touch: Abnormal Left Sensory exam lower extremity: light touch: Abnormal Left Coma Scale Eye Opening: Spontaneous Coma Scale Motor Response: Obeys Commands Coma Scale Verbal Response: Oriented Coma Scale Total: 15 - Psychiatric Psychiatric exam: Present: normal affect - Skin Skin exam: Present: warm, dry, intact. Absent: rash Course Vital Signs Temperature 98.0 F 04/03/18 16:46 Pulse Rate 92 04/03/18 16:46 Respiratory Rate 20 04/03/18 16:46 Blood Pressure 154/88 04/03/18 16:46 O2 Sat by Pulse Oximetry 96 04/03/18 16:46 Temperature 98.0 F 04/03/18 16:46 Pulse Rate 92 04/03/18 16:46 Respiratory Rate 20 04/03/18 16:46 Blood Pressure 154/88 04/03/18 16:46 O2 Sat by Pulse Oximetry 96 04/03/18 16:46 Oxygen Delivery Oxygen Delivery Nasal Cannula Medical Decision Making - [facility] Narrative Medical decision making narrative: Patient is a 67-year-old female presenting with multiple complaints. Specifically the patient states that she has had recent increase in numbness and tingling to the left upper extremity and lower extremity, last known normal was yesterday. Patient has significant history of CVA in the past with residual left changed double-sided change in sensation as well as left-sided weakness. She states the weakness has not changed. Patient currently lives at home with her son in and . Patient also states that she has some significant abdominal pain with nausea and vomiting as well as some shortness of breath and cough. On examination, patient is in no acute distress, she has decreased breath sounds throughout with a few crackles on the left, she does have significant tenderness to the middle of the abdomen with extension to the midepigastric region, she also does have sensation changes on the left upper and left lower extremity, she does have markedly weakness on the left upper and lower extremity, cranial nerves II through XII are intact, patient is currently last known well greater than 16 hours ago at this point, CT of the head has been ordered. Patient is not a TPA candidate, and also given patient's history of confusion as well as last known well being greater than TPA window, not consideration. Stroke alert was not called. CBC was performed which shows a leukocytosis, she also had a chest x-ray which shows left lower lobe pneumonia which is new. In review of charts, patient had been recently admitted to the [facility] [place] for pneumonia as well. This appears new per imaging radiology. Patient was started on azithromycin, Rocephin as well as vancomycin. She was also given fluids. Patient also had a significant elevation in troponin at 0.19, patient denies chest pain currently. She does have abnormal EKG, however does not appear to be an acute ME, appears to be possible strain from acute sepsis leading of new pneumonia. Patient was given aspirin. CT head shows no acute intracranial bleed, does show remote right frontal stroke, with chronic changes. BNP is ambulated elevated greater than 5000. Suspect this is most likely secondary to large pleural effusion. Patient has not decided neck on examination, currently resting comfortably. Patient was given Lasix [address] of the abdomen and pelvis there is a right renal mass, most suggestive for renal cell carcinoma, as well as pleural effusion bilaterally. In light of sepsis, pleural effusion, elevated BNP, given her elevated heart rate at 92, leukocytosis as well as source of pneumonia, patient will be admitted this point in time for sepsis. Hospitalist paged at [phone]. Patient will be signed out at this time, 1926. - Medical Records Medical records reviewed: Yes I reviewed the patient's medical records. - Lab Data Lab results reviewed: Yes I reviewed the patient's lab results. Result diagrams: 04/03/18 17:27 04/03/18 17:27 Lab Results 04/03/18 04/03/18 04/03/18 Range/Units 16:47 17:25 17:27 WBC 14.3 H (4.3-11.1) K/mcL RBC 5.61 H (3.82-4.97) M/mcL Hgb 14.1 (11.5-15.4) g/dL Hct 47.2 H (35.3-44.9) % MCV 84.1 (83.0-100.0) fL MCH 25.1 L (28.0-33.3) pg MCHC 29.9 L (31.6-35.5) g/dL RDW 17.9 H (11.5-14.5) % Plt Count 276 (140-400) K/mcL MPV 11.4 (9.4-12.4) fL Immature Gran % 0.6 (0-4) % Seg Neutrophils % 86.7 % Lymphocytes % 3.8 % Monocytes % 8.8 % Eosinophils % 0.0 % Basophils % 0.1 % Neutrophils # 12.4 H (1.6-8.9) K/mcL Lymphocytes # 0.5 L (0.6-4.6) K/mcL Monocytes # 1.3 (0.0-1.3) K/mcL Eosinophils # 0.0 (0.0-0.6) K/mcL Basophils # 0.0 (0.0-0.2) K/mcL PT (9.4-12.1) Seconds INR APTT (26.0-36.0) Seconds Sodium (136-145) mEq/L Potassium (3.5-5.1) mEq/L Chloride (98-107) mEq/L Carbon Dioxide (23-29) mEq/L BUN (8-23) mg/dL Creatinine (0.60-1.20) mg/dL Est GFR ( Amer) (> 60) Est GFR (Non-Af Amer) (> 60) BUN/Creatinine Ratio (6-26) Glucose (70-105) mg/dL POC Glucose 125 H (70-99) mg/dL Calculated Osmolality (280-300) Calcium (8.6-10.3) mg/dL Total Bilirubin (0.3-1.0) mg/dL Direct Bilirubin (0.0-0.2) mg/dL Indirect Bilirubin (0.0-1.2) mg/dL AST (13-39) Units/L ALT (7-52) Units/L Alkaline Phosphatase (34-104) Units/L Troponin I (< 0.04) ng/mL B-Natriuretic Peptide > 5000 H (Less than 100) pg/mL Serum Total Protein (6.4-8.9) g/dL Albumin (3.5-5.7) g/dL Globulin (2.4-3.5) g/dL Albumin/Globulin Ratio (1.1-2.2) Lipase (11-82) Units/L 04/03/18 04/03/18 Range/Units 17:27 17:27 WBC (4.3-11.1) K/mcL RBC (3.82-4.97) M/mcL Hgb (11.5-15.4) g/dL Hct (35.3-44.9) % MCV (83.0-100.0) fL MCH (28.0-33.3) pg MCHC (31.6-35.5) g/dL RDW (11.5-14.5) % Plt Count (140-400) K/mcL MPV (9.4-12.4) fL Immature Gran % (0-4) % Seg Neutrophils % % Lymphocytes % % Monocytes % % Eosinophils % % Basophils % % Neutrophils # (1.6-8.9) K/mcL Lymphocytes # (0.6-4.6) K/mcL Monocytes # (0.0-1.3) K/mcL Eosinophils # (0.0-0.6) K/mcL Basophils # (0.0-0.2) K/mcL PT 11.5 (9.4-12.1) Seconds INR 1.0 APTT 28.9 (26.0-36.0) Seconds Sodium 138 (136-145) mEq/L Potassium 4.5 (3.5-5.1) mEq/L Chloride 97 L (98-107) mEq/L Carbon Dioxide 31 H (23-29) mEq/L BUN 24 H (8-23) mg/dL Creatinine 0.60 (0.60-1.20) mg/dL Est GFR ( Amer) > 60 (> 60) Est GFR (Non-Af Amer) > 60 (> 60) BUN/Creatinine Ratio 40 H (6-26) Glucose 136 H (70-105) mg/dL POC Glucose (70-99) mg/dL Calculated Osmolality 292 (280-300) Calcium 9.9 (8.6-10.3) mg/dL Total Bilirubin 0.9 (0.3-1.0) mg/dL Direct Bilirubin 0.2 (0.0-0.2) mg/dL Indirect Bilirubin 0.7 (0.0-1.2) mg/dL AST 37 (13-39) Units/L ALT 20 (7-52) Units/L Alkaline Phosphatase 116 H (34-104) Units/L Troponin I 0.16 H* (< 0.04) ng/mL B-Natriuretic Peptide (Less than 100) pg/mL Serum Total Protein 6.7 (6.4-8.9) g/dL Albumin 4.0 (3.5-5.7) g/dL Globulin 2.7 (2.4-3.5) g/dL Albumin/Globulin Ratio 1.5 (1.1-2.2) Lipase 8 L (11-82) Units/L - Radiology Data Radiology results reviewed: Yes I reviewed the patient's radiology results. Chest X-Ray 04/03/18 00:00 IMPRESSION: New left lower lobe pulmonary opacity may represent atelectasis, pneumonia, and/or aspiration. Recommend radiographic follow-up to complete resolution. Trace bilateral pleural effusion. Increased prominence of interstitial lung markings may represent superimposed interstitial edema. Correlate with volume status. Findings suggestive of underlying COPD. D/ / 04/03/2018 17:53:13 Everett Bui MD / huma Interpreting Provider: Everett Bui MD Chest X-Ray 04/03/18 00:00 IMPRESSION: New left lower lobe pulmonary opacity may represent atelectasis, pneumonia, and/or aspiration. Recommend radiographic follow-up to complete resolution. Trace bilateral pleural effusion. Increased prominence of interstitial lung markings may represent superimposed interstitial edema. Correlate with volume status. Findings suggestive of underlying COPD. D/ / 04/03/2018 17:53:13 Everett Bui MD / huma Interpreting Provider: Everett Bui MD Head CT 04/03/18 17:09 IMPRESSION: No acute intracranial abnormality. Remote right frontal stroke. Senescent changes. Nonspecific partial opacification visualized portions left maxillary sinus could reflect an acute infectious process. D/ / Skyler Pimentel / Skyler Pimentel Interpreting Provider: Skyler Pimentel Abdomen/Pelvis CT 04/03/18 17:10 IMPRESSION: 1. Enhancing right renal mass reflecting renal cell carcinoma until proven otherwise. 2. Right renal atrophy. 3. Diverticulosis coli without CT evidence of acute diverticulitis. 4. Calcific atherosclerotic disease aorta. 5. Left pleural effusion with left basilar atelectasis or infiltrate. Pneumonia is a consideration. 6. Degenerative changes L4-5 with grade 1 anterolisthesis L4 on L5. 7. Bones appear osteoporotic. D/ / Skyler Pimentel / Skyler Pimentel Interpreting Provider: Skyler Pimentel - EKG Data EKG #1 EKG attestation: Yes I reviewed and interpreted this EKG. EKG results narrative: EKG performed at 1659 ventricular rate of 92, regular rhythm, LVH, left axis deviation, significant Q waves in leads 23 aVF, there is ST elevation in V3, depression in lead V5 and V6, ST elevation is seen in leads 2,3 and aVF, however this is unchanged from prior and 2018 and specific T-wave changes. When compared to previous EKG there are: changes noted S.Amelia.Salbador - Ti Situation: Demographics, MOA Background: Presenting Complaint, Relevant PMH, Meds, & Allergies Assessment: Vital Signs, Course and respsone to treatment, Exam Concerns, Claritza ent/Family Expectation, Pertinant Lab Results, Outstanding Labs Recommendation: Barrier(s) to disposition, Recommendation based on pending studies, treatments, or consults SJim Report Given to: Dr. Marc and Dr. Arenas SJim Repor Time: 19:27
[2018-04-03 17:39] LABS: Basophils % 0.1 %; Hematocrit 47.2 % (35.3-44.9); Hemoglobin 14.1 g/dL (11.5-15.4); Immature Granulocytes % 0.6 % (0-4); Lymphocytes # 0.5 K/mcL (0.6-4.6); Lymphocytes % 3.8 %; Mean Corpuscular HGB Conc 29.9 g/dL (31.6-35.5); Mean Corpuscular Hemoglobin 25.1 pg (28.0-33.3); Mean Corpuscular Volume 84.1 fL (83.0-100.0); Mean Platelet Volume 11.4 fL (9.4-12.4); Monocytes # 1.3 K/mcL (0.0-1.3); Monocytes % 8.8 %; Neutrophils # 12.4 K/mcL (1.6-8.9); Platelet Count 276 K/mcL (140-400); Red Blood Count 5.61 M/mcL (3.82-4.97); Red Cell Distribution Width 17.9 % (11.5-14.5); Segmented Neutrophils % 86.7 %
[2018-04-03 17:46] LABS: Prothrombin Time 11.5 Seconds (9.4-12.1)
[2018-04-03 17:49] LABS: Activated Partial Thrombo Time 28.9 Seconds (26.0-36.0)
[2018-04-03 18:00] LABS: Alanine Aminotransferase 20 Units/L (7-52); Albumin/Globulin Ratio 1.5 (1.1-2.2); Alkaline Phosphatase 116 Units/L (34-104); Aspartate Amino Transferase 37 Units/L (13-39); BUN/Creatinine Ratio 40 (6-26); Bilirubin,Direct 0.2 mg/dL (0.0-0.2); Bilirubin,Indirect 0.7 mg/dL (0.0-1.2); Bilirubin,Total 0.9 mg/dL (0.3-1.0); Blood Urea Nitrogen 24 mg/dL (8-23); Calcium 9.9 mg/dL (8.6-10.3); Carbon Dioxide 31 mEq/L (23-29); Chloride 97 mEq/L (98-107); Globulin 2.7 g/dL (2.4-3.5); Glucose 136 mg/dL (70-105); Lipase 8 Units/L (11-82); Osmolality,Calculated 292 (280-300); Potassium 4.5 mEq/L (3.5-5.1); Sodium 138 mEq/L (136-145); Total Protein 6.7 g/dL (6.4-8.9); eGFR For Non-African Americans > 60 (> 60)
[2018-04-03 18:05] LABS: Troponin I 0.16 ng/mL (< 0.04)
[2018-04-03] MEDS ORDERED: cefTRIAXone 1,000 MG in Water for inj. (sterile) 20 ML 10 ML IVP ONE (18:10)
[2018-04-03] MEDS ORDERED: Azithromycin 500 MG in D5% in Water 250 ML IVPB ONE (18:11)
[2018-04-03] MEDS ORDERED: Aspirin 325 MG TABLET PO ONE (18:19)
--- NOTE | 2018-04-03 18:22 | Emergency Department Note ---
Disposition Clinical Impression: Pneumonia Qualifiers: Pneumonia type: due to unspecified organism Laterality: left Lung location: lower lobe of lung Qualified Code(s): J18.1 - Lobar pneumonia, unspecified organism Disposition: Admitted As Inpatient Condition: Good Forms: ED Satisfaction Letter, Work/School Release General Adult HPI - General Chief complaint: ED General Medical Stated complaint: General Illness Time Seen by Provider: 04/03/18 16:44 Source: patient, EMS Limitations: no limitations - History of Present Illness Pain Scale: 0 - Related Data Home Medications Medication Instructions Recorded Confirmed Clopidogrel [Plavix] 75 mg PO DAILY 08/17/17 11/08/17 Furosemide [Lasix] 20 mg PO DAILY 08/17/17 11/08/17 Omeprazole [PriLOSEC] 20 mg PO DAILY PRN 08/17/17 11/08/17 Ferrous Sulfate 325 mg PO DAILY 11/08/17 11/08/17 Previous Rx's Medication Instructions Recorded Aspirin 81 mg PO DAILY #30 tab.chew 08/22/17 Atorvastatin [Lipitor] 40 mg PO HS #30 tablet 08/22/17 Carvedilol [Coreg] 6.25 mg PO BIDWM 30 Days #60 tablet 11/11/17 Allergies Allergy/AdvReac Type Severity Reaction Status Date / Time No Known Allergies Allergy Verified 11/08/17 13:59 Past Medical History - Past Medical History Medical history: Reports: CHF, COPD, coronary artery disease, CVA, hyperlipidemia, hypertension Surgical history: Reports: AICD Psychiatric history: Reports: no psych history 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: no 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 MANAGER INSURANCE history - Social History Smoking Status: Current every day smoker Smokeless Tobacco Status: No Alcohol use: Reports: none Drug use: Reports: none Physical Exam - General Limitations: no limitations General appearance: alert, in no apparent distress Course Vital Signs Temperature 98.0 F 04/03/18 16:46 Pulse Rate 92 04/03/18 16:46 Respiratory Rate 20 04/03/18 16:46 Blood Pressure 154/88 04/03/18 16:46 O2 Sat by Pulse Oximetry 96 04/03/18 16:46 Temperature 98.0 F 04/03/18 16:46 Pulse Rate 92 04/03/18 16:46 Respiratory Rate 20 04/03/18 16:46 Blood Pressure 154/88 04/03/18 16:46 O2 Sat by Pulse Oximetry 96 04/03/18 16:46 Oxygen Delivery Oxygen Delivery Nasal Cannula Medical Decision Making - Lab Data Result diagrams: 04/03/18 17:27 04/03/18 17:27 Lab Results 04/03/18 04/03/18 04/03/18 Range/Units 16:47 17:27 17:27 WBC 14.3 H (4.3-11.1) K/mcL RBC 5.61 H (3.82-4.97) M/mcL Hgb 14.1 (11.5-15.4) g/dL Hct 47.2 H (35.3-44.9) % MCV 84.1 (83.0-100.0) fL MCH 25.1 L (28.0-33.3) pg MCHC 29.9 L (31.6-35.5) g/dL RDW 17.9 H (11.5-14.5) % Plt Count 276 (140-400) K/mcL MPV 11.4 (9.4-12.4) fL Immature Gran % 0.6 (0-4) % Seg Neutrophils % 86.7 % Lymphocytes % 3.8 % Monocytes % 8.8 % Eosinophils % 0.0 % Basophils % 0.1 % Neutrophils # 12.4 H (1.6-8.9) K/mcL Lymphocytes # 0.5 L (0.6-4.6) K/mcL Monocytes # 1.3 (0.0-1.3) K/mcL Eosinophils # 0.0 (0.0-0.6) K/mcL Basophils # 0.0 (0.0-0.2) K/mcL PT 11.5 (9.4-12.1) Seconds INR 1.0 APTT 28.9 (26.0-36.0) Seconds Sodium (136-145) mEq/L Potassium (3.5-5.1) mEq/L Chloride (98-107) mEq/L Carbon Dioxide (23-29) mEq/L BUN (8-23) mg/dL Creatinine (0.60-1.20) mg/dL Est GFR ( Amer) (> 60) Est GFR (Non-Af Amer) (> 60) BUN/Creatinine Ratio (6-26) Glucose (70-105) mg/dL POC Glucose 125 H (70-99) mg/dL Calculated Osmolality (280-300) Calcium (8.6-10.3) mg/dL Total Bilirubin (0.3-1.0) mg/dL Direct Bilirubin (0.0-0.2) mg/dL Indirect Bilirubin (0.0-1.2) mg/dL AST (13-39) Units/L ALT (7-52) Units/L Alkaline Phosphatase (34-104) Units/L Troponin I (< 0.04) ng/mL Serum Total Protein (6.4-8.9) g/dL Albumin (3.5-5.7) g/dL Globulin (2.4-3.5) g/dL Albumin/Globulin Ratio (1.1-2.2) Lipase (11-82) Units/L 04/03/18 Range/Units 17:27 WBC (4.3-11.1) K/mcL RBC (3.82-4.97) M/mcL Hgb (11.5-15.4) g/dL Hct (35.3-44.9) % MCV (83.0-100.0) fL MCH (28.0-33.3) pg MCHC (31.6-35.5) g/dL RDW (11.5-14.5) % Plt Count (140-400) K/mcL MPV (9.4-12.4) fL Immature Gran % (0-4) % Seg Neutrophils % % Lymphocytes % % Monocytes % % Eosinophils % % Basophils % % Neutrophils # (1.6-8.9) K/mcL Lymphocytes # (0.6-4.6) K/mcL Monocytes # (0.0-1.3) K/mcL Eosinophils # (0.0-0.6) K/mcL Basophils # (0.0-0.2) K/mcL PT (9.4-12.1) Seconds INR APTT (26.0-36.0) Seconds Sodium 138 (136-145) mEq/L Potassium 4.5 (3.5-5.1) mEq/L Chloride 97 L (98-107) mEq/L Carbon Dioxide 31 H (23-29) mEq/L BUN 24 H (8-23) mg/dL Creatinine 0.60 (0.60-1.20) mg/dL Est GFR ( Amer) > 60 (> 60) Est GFR (Non-Af Amer) > 60 (> 60) BUN/Creatinine Ratio 40 H (6-26) Glucose 136 H (70-105) mg/dL POC Glucose (70-99) mg/dL Calculated Osmolality 292 (280-300) Calcium 9.9 (8.6-10.3) mg/dL Total Bilirubin 0.9 (0.3-1.0) mg/dL Direct Bilirubin 0.2 (0.0-0.2) mg/dL Indirect Bilirubin 0.7 (0.0-1.2) mg/dL AST 37 (13-39) Units/L ALT 20 (7-52) Units/L Alkaline Phosphatase 116 H (34-104) Units/L Troponin I 0.16 H* (< 0.04) ng/mL Serum Total Protein 6.7 (6.4-8.9) g/dL Albumin 4.0 (3.5-5.7) g/dL Globulin 2.7 (2.4-3.5) g/dL Albumin/Globulin Ratio 1.5 (1.1-2.2) Lipase 8 L (11-82) Units/L Attestation Statement - Attestation Attestation: I examined this patient and my medical decision-making was reviewed with the Resident Physician. I agree with the documented findings, disposition and treatment plan as described except to the extent set forth below. 67 year old female prsent to the ED with coplaints of generalized wekaness and was most recently sent to [facility] last month for [facility]. [facility] L[facility]. We will treat for HCAP and then admit to [facility] after we have obtain CT scan for AMS.
[2018-04-03] MEDS ORDERED: Furosemide 40 MG/4 ML VIAL IVP ONE (19:11)
[2018-04-03 19:42] LABS: Bilirubin,Urine Negative (Negative); Blood,Urine Trace (Negative); Clarity,Urine Clear (Clear); Color,Urine Yellow (Yellow); Glucose,Urine (UA) Normal (Normal); Ketones,Urine Negative (Negative); Leukocyte Esterase,Urine Small (Negative); Nitrite,Urine Negative (Negative); PH,Urine 5.5 pH Units (5.0-8.0); Protein,Urine 100 mg/dL (Neg-Trace); Specific Gravity,Urine > 1.030 (1.010-1.025); Urobilinogen,Urine Normal (Normal)
[2018-04-03 19:44] LABS: Bacteria,Urine None Seen per hpf (None-Few); Squamous Epithelial Cell,Urine Many per lpf (None-Few); WBC,Urine TNTC per hpf (0-3)
[2018-04-03] MEDS ORDERED: Aminoglycoside Consult 1 EACH MC ONE (19:44)
[2018-04-03 20:01] LABS: RBC,Urine TNTC per hpf (0-3)
[2018-04-03] MEDS ORDERED: Naloxone 0.4 MG/ML INJ IVP PRN (20:07)
--- NOTE | 2018-04-03 20:50 | Internal Med History&Physical ---
<Juan Jose Can - Last Filed: 04/03/18 23:22> Date of Encounter: 04/03/18 Time of Encounter: 20:20 Internal Medicine - H&P: HPI Chief complaint: L sided numbness/paresthesia Admitted From: Home Plans for Post Hospital Care: Home History of present illness: Ms. Jensen is a 67 year old female with pmh significant for HFrEF s/p AICD, CAD s/p PCI 08/23, CVA with residual L sided deficits, COPD on 2L home O2, HTN, HLD, and current 1/2 ppd smoker. Hx is combination of medical records and patient hx as she is not great historian and forgets events. Last evening she noticed an increase in L sided numbness/paresthesia from her baseline but no change in L sided weakness which prompted her visit to the ED. She additionally complains of stabbing, epigastric pain that is intermittent and will last for few minutes and resolve spontaneously. This has been occurring frequently throughout the day. While having the epigastric pain she will have radiation to her back along with nausea but no vomiting. Dyspnea has been increasing over the last week from baseline and worsened with exertion. She has baseline blurry vision and dizziness which is unchanged. She denies subjective fever/chills, cough, chest pain, pleuritic chest pain, diaphoresis, abdominal pain elsewhere, postprandial changes, constipation, diarrhea, dysuria, hematuria, syncope. She was recently admitted to [facility] 1 month ago for what she thinks is same L sided numbness/paresthesia and was also treated for pneumonia and dc with amoxicillin which she completed but is not completely sure. ED documentation today indicates she admitted to productive cough with chest pain while coughing which she denied to me. Within the ED she has been afebrile, hypertensive and requiring increased O2 from baseline. Additionally, she was found to have leukocytosis at 14.3, troponin 0.16, BNP >5000, and isolated elevation in ALP at 116. CXR with evidence of new LLL pneumonia vs atelectesis, trace bilateral pleural effusions, and superimposed interstitial edema. CT abd/plv showed an enhancing R renal mass that was previously not evident on previous imaging. She was given furosemide and broad spectrum antibiotics for possible HAP and admitted with sepsis as main diagnosis. Past Med Surg Social Fam HX - Past Medical History Medical history: CHF, COPD, coronary artery disease, CVA, hyperlipidemia, hypertension Psychiatric history: no psych history - Past Surgical History Surgical History: AICD Additional surgical history: tubal, heart stents "maybe 2" - Social History Smoking Status: Current every day smoker Smokeless Tobacco Status: No Alcohol use: none Drug use: none - Family History Father Hx Family Cardiac Disorders: Yes (Father with [place]) Internal Medicine - H&P: Meds Clopidogrel [Plavix] 75 mg PO DAILY 08/17/17 [History] Furosemide [Lasix] 20 mg PO DAILY 08/17/17 [History] Omeprazole [PriLOSEC] 20 mg PO DAILY PRN 08/17/17 [History] Aspirin 81 mg PO DAILY #30 tab.chew 08/22/17 [Rx] Atorvastatin [Lipitor] 40 mg PO HS #30 tablet 08/22/17 [Rx] Ferrous Sulfate 325 mg PO DAILY 11/08/17 [History] Carvedilol [Coreg] 6.25 mg PO BIDWM 30 Days #60 tablet 11/11/17 [Rx] Allergy/AdvReac Type Severity Reaction Status Date / Time No Known Allergies Allergy Verified 11/08/17 13:59 All Systems PM: A 10-system review of systems was performed and is negative for pertinent findings except as documented above in the HPI. - Constitutional Vitals: Temp Pulse Resp BP Pulse Ox 98.0 F 100 18 154/99 100 04/03/18 16:46 04/03/18 19:48 04/03/18 19:48 04/03/18 19:48 04/03/18 19:48 General appearance: Present: cooperative, A&O X 3, pleasant, no acute distress, underweight Exam: - - Head Head exam: Present: atraumatic, normal inspection, normocephalic - Eye Eye exam: Present: normal appearance. Absent: scleral icterus - ENT ENT exam: Present: mucous membranes dry - Neck Neck exam general surgery: Present: normal inspection, supple, trachea midline - Respiratory Respiratory exam: Present: decreased breath sounds, prolonged expiratory phase, rales. Absent: accessory muscle use, chest wall tenderness, CTAB, respiratory distress, rhonchi, stridor, wheezes, tachypnea - Cardiovascular Cardiovascular exam: Present: RRR, +S1, +S2. Absent: bradycardia, clicks, diastolic murmur, distant heart sounds, gallop, irregular rhythm, JVD, rubs, +S 3, +S4, systolic murmur, tachycardia - GI/Abdominal GI/Abdominal exam: Present: firm, tenderness (diffuse with RUQ, epigastric most severe). Absent: distended, guarding, hepatomegaly, rebound, rigid, soft, splenomegaly - Extremities Exam Extremities exam: Present: normal capillary refill, normal inspection, warm, radial pulses palpable and symmetrical. Absent: calf tenderness, cyanotic, joint swelling, mottling, pedal edema, tenderness - Neurological Exam Neurological exam: Present: alert, CN II-XII intact, motor sensory deficit (decreased light touch L UE/LE, normal temp sensation ), oriented X3. Absent: no focal deficits, strengths equal and symetr throughout (L UE/LE 3/5 ), facial droop, speech deficit - Psychiatric Psychiatric exam: Present: normal affect, normal mood - Skin Skin exam: Present: dry, intact, normal color, warm. Absent: abrasion, cyanosis, diaphoretic, erythema, excoriation, mottled, pallor, petechiae, rash, urticaria, vesicles Internal Med - H&P Results - Labs CBC & Chem 7: 04/03/18 17:27 04/03/18 17:27 Labs: Short CBC 04/03/18 Range/Units 17:27 WBC 14.3 H (4.3-11.1) K/mcL Hgb 14.1 (11.5-15.4) g/dL Hct 47.2 H (35.3-44.9) % Plt Count 276 (140-400) K/mcL Neutrophils # 12.4 H (1.6-8.9) K/mcL BMP 04/03/18 17:27 Sodium 138 Potassium 4.5 Chloride 97 L Carbon Dioxide 31 H BUN 24 H Creatinine 0.60 Glucose 136 H Calcium 9.9 Cardiac Enzymes 04/03/18 Range/Units 17:27 Troponin I 0.16 H* (< 0.04) ng/mL Liver Function 04/03/18 Range/Units 17:27 Total Bilirubin 0.9 (0.3-1.0) mg/dL Direct Bilirubin 0.2 (0.0-0.2) mg/dL AST 37 (13-39) Units/L ALT 20 (7-52) Units/L Alkaline Phosphatase 116 H (34-104) Units/L Albumin 4.0 (3.5-5.7) g/dL Urine 04/03/18 Range/Units 19:23 Urine Color Yellow (Yellow) Urine Clarity Clear (Clear) Urine pH 5.5 (5.0-8.0) pH Units Ur Specific [place] > 1.030 H (1.010-1.025) Urine Protein 100 H (Neg-Trace) mg/dL Urine Glucose (UA) Normal (Normal) mg/dL - Impressions ITS Impressions Chest X-Ray 04/03/18 00:00 IMPRESSION: New left lower lobe pulmonary opacity may represent atelectasis, pneumonia, and/or aspiration. Recommend radiographic follow-up to complete resolution. Trace bilateral pleural effusion. Increased prominence of interstitial lung markings may represent superimposed interstitial edema. Correlate with volume status. Findings suggestive of underlying COPD. D/ / 04/03/2018 17:53:13 Everett Bui MD / huma Interpreting Provider: Everett Bui MD Head CT 04/03/18 17:09 IMPRESSION: No acute intracranial abnormality. Remote right frontal stroke. Senescent changes. Nonspecific partial opacification visualized portions left maxillary sinus could reflect an acute infectious process. D/ / Sykler Pimentel / Skyler Pimentel Interpreting Provider: Skyler Pimentel Abdomen/Pelvis CT 04/03/18 17:10 IMPRESSION: 1. Enhancing right renal mass reflecting renal cell carcinoma until proven otherwise. 2. Right renal atrophy. 3. Diverticulosis coli without CT evidence of acute diverticulitis. 4. Calcific atherosclerotic disease aorta. 5. Left pleural effusion with left basilar atelectasis or infiltrate. Pneumonia is a consideration. 6. Degenerative changes L4-5 with grade 1 anterolisthesis L4 on L5. 7. Bones appear osteoporotic. D/ / Skyler Pimentel / Skyler Pimentel Interpreting Provider: Skyler Pimentel - Assessment and plan (1) Sepsis Current Visit: Yes Status: Acute Assessment and plan: -Likely 2/2 LLL pneumonia -HR 92, WBC 14.3 and evidence of LLL pnuemonia on imaging -Afebrile -Lactic wnl -CXR 04/03/18: New LLL opacity may represent atelectesis, pneumonia, aspiration. Trace bilateral pleural effusion. Increased prominence of interstitial lung markings, may represent superimposed interstitial edema -BC x2 pending -Started on vanc, ceftriaxone, and azithro in ED -Will switch antibiotics to vanc, pip/tazo, and levofloxacin for possible HAP given recent admission to [facility] last month Qualifiers: Sepsis type: sepsis due to unspecified organism Qualified Code(s): A41.9 - Sepsis, unspecified organism (2) Pneumonia Current Visit: Yes Status: Acute Assessment and plan: -As above in Sepsis assessment Qualifiers: Pneumonia type: due to unspecified organism Laterality: left Lung location: lower lobe of lung Qualified Code(s): J18.1 - Lobar pneumonia, unspecified organism (3) Systolic CHF, chronic Current Visit: No Status: Chronic Assessment and plan: -Hx of systolic HF s/p AICD -TTE 08/17/17: EF 25%, severe LV systolic dysfunction with regional variation, mild dilation LV, mild RV dilation with mild-mod reduction in function, mild MR/TR, mild-mod IN, mild PH -CXR 04/03/18: New LLL opacity may represent atelectesis, pneumonia, aspiration. Trace bilateral pleural effusion. Increased prominance of interstitial lung markings, may represent superimposed interstitial edema -BNP >5000 -Will continue furosemide, fluid restriction, daily weight, and strict I&O's -Will start home meds when med rec complete (4) Pleural effusion Current Visit: Yes Status: Acute Assessment and plan: -As above in CHF assessment (5) Renal mass Current Visit: Yes Status: Acute Assessment and plan: -New R renal mass on CT -CT abd/plv 04/03/18: [id number] enhancing R renal mass at inferior pole reflecting renal cell carcinoma until proven otherwise. R renal atrophy -No hx of prior cancer -Nephrology consulted -Likely need renal biopsy but defer to nephrology for timing -Renal function normal (6) Elevated troponin Current Visit: Yes Status: Acute Assessment and plan: -Initial troponin 0.16 -Likely 2/2 sepsis or heart failure with low output -Will trend troponin (7) CAD (coronary artery disease) Current Visit: No Status: Chronic Assessment and plan: -Hx of CAD s/p PCI 08/23 -Does not follow with a blanket folder -Will start home CAD meds when med rec complete Qualifiers: Coronary Disease-Associated Artery/Lesion type: [place] artery [place] vs. transplanted heart: [place] heart Associated angina: angina presence unspecified Qualified Code(s): I25.10 - Atherosclerotic heart disease of [place] coronary artery without angina pectoris (8) Hypertension Current Visit: Yes Status: Chronic Assessment and plan: -Hx of HTN -BP 154/88 on arrival -Will continue home antihypertensives when med rec complete Qualifiers: Hypertension type: essential hypertension Qualified Code(s): I10 - Essential (primary) hypertension (9) COPD (chronic obstructive pulmonary disease) Current Visit: No Status: Chronic Assessment and plan: -Hx of COPD on 2L home O2 -Increased dyspnea over last week -Recently treated for pneumonia at [place] last month -Bicarb elevated at 31 which is likely her baseline -Will have bronchodilators PRN -Will start home meds when med rec complete Qualifiers: COPD type: unspecified COPD Qualified Code(s): J44.9 - Chronic obstructive pulmonary disease, unspecified (10) Left arm numbness Current Visit: No Status: Chronic Assessment and plan: -Increased L sided numbness/paresthesia began last night from her baseline sensory deficit without change in baseline weakness post CVA -Light touch decreased, temp sensation intact -CT head 04/03/18: without acute intracranial abnormality. Remote R frontal infarct -Will follow for changes (11) Abdominal pain Current Visit: Yes Status: Acute Assessment and plan: -Acute onset, intermittent, stabbing, epigastric pain that lasts a few minutes and resolves spontaneously -No signs/symptoms of UGI bleed -Tender to palpation diffusely but most severe epigastric and RUQ -Isolated elevation in ALP at 116 -Will get RUQ US Qualifiers: Abdominal location: epigastric Qualified Code(s): R10.13 - Epigastric pain (12) Nausea Current Visit: Yes Status: Acute Assessment and plan: -Acute nausea without vomiting with epigastric abdominal pain -Will have PRN ondansetron (13) Underweight Current Visit: No Status: Acute Assessment and plan: -BMI 16 (14) Tobacco abuse Current Visit: Yes Status: Chronic Assessment and plan: -Current 1/2 ppd smoker -Recommend cessation at dc -Nicotine patch (15) DVT prophylaxis Current Visit: No Status: Acute Assessment and plan: -SQ heparin - Time Spent With Patient Total time spent is greater than 50% in coordination of care (as documented) at patient's floor/unit and/or counseling patient: <Richard Butler - Last Filed: 04/04/18 07:02> Date of Encounter: 04/04/18 Internal Medicine - H&P: HPI History of present illness: Ms. Jensen is a 67 year old female All Systems PM: A 10-system review of systems was performed and is negative for pertinent findings except as documented above in the HPI. - Constitutional Vitals: Temp Pulse Resp BP Pulse Ox 97.6 F 83 16 171/112 96 04/04/18 03:45 04/04/18 03:45 04/04/18 03:45 04/04/18 03:45 04/04/18 03:45 Internal Med - H&P Results - Labs CBC & Chem 7: 04/04/18 06:04 04/04/18 06:04 Labs: Short CBC 04/03/18 04/04/18 Range/Units 17:27 06:04 WBC 14.3 H 10.8 (4.3-11.1) K/mcL Hgb 14.1 12.3 D (11.5-15.4) g/dL Hct 47.2 H 40.3 (35.3-44.9) % Plt Count 276 220 (140-400) K/mcL Neutrophils # 12.4 H 8.5 (1.6-8.9) K/mcL BMP 04/03/18 04/04/18 17:27 06:04 Sodium 138 136 Potassium 4.5 3.6 Chloride 97 L 97 L Carbon Dioxide 31 H 29 BUN 24 H 21 Creatinine 0.60 0.54 L Glucose 136 H 77 Calcium 9.9 9.2 Cardiac Enzymes 04/03/18 04/04/18 04/04/18 Range/Units 17:27 00:04 06:04 Troponin I 0.16 H* 0.17 H* 0.15 H* (< 0.04) ng/mL Liver Function 04/03/18 Range/Units 17:27 Total Bilirubin 0.9 (0.3-1.0) mg/dL Direct Bilirubin 0.2 (0.0-0.2) mg/dL AST 37 (13-39) Units/L ALT 20 (7-52) Units/L Alkaline Phosphatase 116 H (34-104) Units/L Albumin 4.0 (3.5-5.7) g/dL Urine 04/03/18 Range/Units 19:23 Urine Color Yellow (Yellow) Urine Clarity Clear (Clear) Urine pH 5.5 (5.0-8.0) pH Units Ur Specific [place] > 1.030 H (1.010-1.025) Urine Protein 100 H (Neg-Trace) mg/dL Urine Glucose (UA) Normal (Normal) mg/dL - Impressions ITS Impressions Chest X-Ray 04/03/18 00:00 IMPRESSION: New left lower lobe pulmonary opacity may represent atelectasis, pneumonia, and/or aspiration. Recommend radiographic follow-up to complete resolution. Trace bilateral pleural effusion. Increased prominence of interstitial lung markings may represent superimposed interstitial edema. Correlate with volume status. Findings suggestive of underlying COPD. D/ / 04/03/2018 17:53:13 Everett Bui MD / huma Interpreting Provider: Everett Bui MD Head CT 04/03/18 17:09 IMPRESSION: No acute intracranial abnormality. Remote right frontal stroke. Senescent changes. Nonspecific partial opacification visualized portions left maxillary sinus could reflect an acute infectious process. D/ / Skyler Pimentel / Skyler Pimentel Interpreting Provider: Skyler Pimentel Abdomen/Pelvis CT 04/03/18 17:10 IMPRESSION: 1. Enhancing right renal mass reflecting renal cell carcinoma until proven otherwise. 2. Right renal atrophy. 3. Diverticulosis coli without CT evidence of acute diverticulitis. 4. Calcific atherosclerotic disease aorta. 5. Left pleural effusion with left basilar atelectasis or infiltrate. Pneumonia is a consideration. 6. Degenerative changes L4-5 with grade 1 anterolisthesis L4 on L5. 7. Bones appear osteoporotic. D/ / Skyler Pimentel / Skyler Pimentel Interpreting Provider: Skyler Pimentel - Time Spent With Patient Total time spent is greater than 50% in coordination of care (as documented) at patient's floor/unit and/or counseling patient: - Attending Attestation I saw and evaluated the patient. I reviewed the residents note, performed my own physical examination and agree with findings and plan as documented in the residents note. Patient seen and e xamined on 04/04/18. Patient continued to have elvated troponin during the night, also new renal mass. Will consult cardiology and nephrology in the morning. Patient also has had elevated blood pressures, PRN hydralazine ordered with improvement to 138/79 this morning. Could explain elevated troponin. Patient also just underwent recent cardiac workup within 6 months including cardiac cath and echocardiogram. Chest x-ray reveals possible pneumonia. Started on HCAP as patient recently was at [facility].
[2018-04-03] MEDS ORDERED: *HR* Heparin 5,000 UNIT/ML VIAL SQ SCH (22:00)
[2018-04-03] MEDS ORDERED: *HR* OxyCODONE Immed Rel 5 MG TABLET PO PRN (22:30)
[2018-04-03] MEDS ORDERED: Acetaminophen 325 MG TABLET PO PRN (22:30)
[2018-04-03] MEDS ORDERED: Ondansetron 4 MG/2 ML VIAL IVP PRN (22:30)
[2018-04-03] MEDS: Piperacillin/Tazobactam 3.375 GM in 0.9 % Sodium Chloride Mini Bag 100 ML IVPB SCH (23:43)
[2018-04-03] MEDS: *HR* HYDROcodone/Acet 5/325 mg TABLET PO PRN (23:44)
[2018-04-04] MEDS ORDERED: *HR* Heparin 5,000 UNIT/ML VIAL IVP ONE (04:05)
[2018-04-04] MEDS ORDERED: *HR* Heparin 5,000 UNIT/ML VIAL IVP PRN ×2 (04:05)
[2018-04-04] MEDS ORDERED: Heparin 25,000 UNIT/500 ML D5W 25,000 UNIT/500 ML BAG IVC SCH (04:15)
[2018-04-04] MEDS: Levofloxacin 750 MG/150 ML 750 MG/150 ML BAG IVPB SCH (06:06)
[2018-04-04 06:13] LABS: Basophils % 0.3 %; Eosinophils % 0.2 %; Hematocrit 40.3 % (35.3-44.9); Immature Granulocytes % 1.1 % (0-4); Lymphocytes # 1.2 K/mcL (0.6-4.6); Mean Corpuscular HGB Conc 30.5 g/dL (31.6-35.5); Mean Corpuscular Hemoglobin 25.2 pg (28.0-33.3); Mean Corpuscular Volume 82.4 fL (83.0-100.0); Mean Platelet Volume 11.4 fL (9.4-12.4); Monocytes % 9.2 %; Neutrophils # 8.5 K/mcL (1.6-8.9); Platelet Count 220 K/mcL (140-400); Red Blood Count 4.89 M/mcL (3.82-4.97); Red Cell Distribution Width 17.5 % (11.5-14.5); Segmented Neutrophils % 78.2 %
[2018-04-04 06:14] LABS: Hemoglobin 12.3 g/dL (11.5-15.4)
[2018-04-04 06:25] LABS: Heparin anti-factor XA UFH 0.09 IU/mL (0.30-0.70); INR 1.1; Prothrombin Time 11.9 Seconds (9.4-12.1)
[2018-04-04 06:37] LABS: BUN/Creatinine Ratio 39 (6-26); Blood Urea Nitrogen 21 mg/dL (8-23); Calcium 9.2 mg/dL (8.6-10.3); Carbon Dioxide 29 mEq/L (23-29); Chloride 97 mEq/L (98-107); Chol/HDL Ratio 2.4 (0-4.9); Cholesterol 179 mg/dL (< 200); Glucose 77 mg/dL (70-105); HDL Cholesterol 74 mg/dL (40-59); LDL Cholesterol,Calculated 89 mg/dL (0-99); Magnesium 1.8 mg/dL (1.6-2.6); Osmolality,Calculated 284 (280-300); Phosphorous 3.2 mg/dL (2.7-4.5); Potassium 3.6 mEq/L (3.5-5.1); Sodium 136 mEq/L (136-145); Triglycerides 79 mg/dL (< 150); eGFR For Non-African Americans > 60 (> 60)
[2018-04-04] MEDS: Furosemide 40 MG/4 ML VIAL IVP SCH (07:45)
[2018-04-04] MEDS: Nicotine 14 MG PATCH.TD24 TD SCH (07:45)
[2018-04-04] MEDS: Piperacillin/Tazobactam 3.375 GM in 0.9 % Sodium Chloride Mini Bag 100 ML IVPB SCH (07:46)
--- NOTE | 2018-04-04 07:48 | Internal Med Progress Note ---
Hospitalist Progress Note - Encounter Date of Encounter: 04/04/18 Time of Encounter: 07:48 - Subjective Interval History: Pt today still complains of L shoulder pain and L weakness. Abdomen is no longer painful until I press on it, at which point she does complain of pain. She does not remember having any shortness of breath when I talk to her, but does think she was at [facility] recently for pneumonia treatment. Today, denies CP or SOB. Does state that she had cold sweats yesterday. - Exam Vitals: Temp Pulse Resp BP Pulse Ox 98.2 F 89 16 150/74 93 04/04/18 07:02 04/04/18 07:02 04/04/18 07:02 04/04/18 07:02 04/04/18 07:02 Exam: General: NAD, good eye contact, appears older than actual age Thoracic: Diminished aeration, does have +egophony L base Cardio: Normal S1 and S2, regular rate and rhythm, no murmurs Abdomen: Soft, nondistended, +tenderness RUQ and epigastrium at costal margin Extremities: Warm, well perfused. DP pulses 2+ b/l. No edema. Skin: Intact. No rashes, bruises, or ulcers Neuro: Awake, oriented to person and place. Speech fluent - Summary of Assessment and Plan Summary of Assessment and Plan: Allyn Jensen is a 67 F w hx HFrEF s/p AICD, CAD s/p PCI 08/23, CVA w residual L sided deficits, COPD on 2L, HTN, HLD, current smoker, who p/w variety of complaints as follows: HCAP: recent inpatient hospitalization but no risk factors for resistant organisms - d/c vanc and zosyn as not decompensating - continue empiric levaquin 750 daily, convert to PO - sputum culture if able Sepsis: resolved, BCx ngtd and lactate wnl New Renal Cell Carcinoma: CT a/p 04/03 showing 4x4x5 enhancing R renal mass at inferior pole - Urology consult, appreciate rec's - will ask IR if able to biopsy Abdominal pain: denies pain but is tender epigastrium on exam, nausea resolved - RUQ US pending CAD: w mild demand ischemia given known RCA occlusion - continue home ASA, plavix, statin - d/c hep gtt - appreciate cardio rec's Chronic HFrEF 25% s/p AICD: last TTE 08/2017, continue home lasix COPD and chronic hypoxemic respiratory failure on 2L: not in acute exacerbation, no wheezing, is diminished, treat HCAP as above HTN: controlled, continue home meds Hx CVA: residual L sided sensory and motor deficits, head CT w remote infarct and no acute abn Underweight: BMI 16 Smoker: nicotine patch offered PPx: lovenox FEN: cardiac, no MIVF Lines: PIV Consults: Cardio, Uro Code: Full Dispo: inpatient for further eval and management, anticipate 2-3 days, likely will be homegoing with resumption of HH services All of the above were present on admission - Time Spent with Patient Total time spent is greater than 50% in coordination of care (as documented) at patient's floor/unit and/or counseling patient: 25 - 35 minutes Internal Medicine: Result - Labs CBC & Chem 7: 04/04/18 06:04 04/04/18 06:04 Labs: Short CBC 04/03/18 04/04/18 Range/Units 17:27 06:04 WBC 14.3 H 10.8 (4.3-11.1) K/mcL Hgb 14.1 12.3 D (11.5-15.4) g/dL Hct 47.2 H 40.3 (35.3-44.9) % Plt Count 276 220 (140-400) K/mcL Neutrophils # 12.4 H 8.5 (1.6-8.9) K/mcL BMP 04/03/18 04/04/18 17:27 06:04 Sodium 138 136 Potassium 4.5 3.6 Chloride 97 L 97 L Carbon Dioxide 31 H 29 BUN 24 H 21 Creatinine 0.60 0.54 L Glucose 136 H 77 Calcium 9.9 9.2 Cardiac Enzymes 04/03/18 04/04/18 04/04/18 Range/Units 17:27 00:04 06:04 Troponin I 0.16 H* 0.17 H* 0.15 H* (< 0.04) ng/mL Liver Function 04/03/18 Range/Units 17:27 Total Bilirubin 0.9 (0.3-1.0) mg/dL Direct Bilirubin 0.2 (0.0-0.2) mg/dL AST 37 (13-39) Units/L ALT 20 (7-52) Units/L Alkaline Phosphatase 116 H (34-104) Units/L Albumin 4.0 (3.5-5.7) g/dL Urine 04/03/18 Range/Units 19:23 Urine Color Yellow (Yellow) Urine Clarity Clear (Clear) Urine pH 5.5 (5.0-8.0) pH Units Ur Specific [place] > 1.030 H (1.010-1.025) Urine Protein 100 H (Neg-Trace) mg/dL Urine Glucose (UA) Normal (Normal) mg/dL - ABG Interpretation ABG results: PT/INR, D-dimer PT 11.9 Seconds (9.4-12.1) 04/04/18 06:04 - Impressions Impressions Chest X-Ray 04/03/18 00:00 IMPRESSION: New left lower lobe pulmonary opacity may represent atelectasis, pneumonia, and/or aspiration. Recommend radiographic follow-up to complete resolution. Trace bilateral pleural effusion. Increased prominence of interstitial lung markings may represent superimposed interstitial edema. Correlate with volume status. Findings suggestive of underlying COPD. D/ / 04/03/2018 17:53:13 Everett Bui MD / huma Interpreting Provider: Everett Bui MD Head CT 04/03/18 17:09 IMPRESSION: No acute intracranial abnormality. Remote right frontal stroke. Senescent changes. Nonspecific partial opacification visualized portions left maxillary sinus could reflect an acute infectious process. D/ / Skyler Pimentel / Skyler Pimentel Interpreting Provider: Skyler Pimentel Abdomen/Pelvis CT 04/03/18 17:10 IMPRESSION: 1. Enhancing right renal mass reflecting renal cell carcinoma until proven otherwise. 2. Right renal atrophy. 3. Diverticulosis coli without CT evidence of acute diverticulitis. 4. Calcific atherosclerotic disease aorta. 5. Left pleural effusion with left basilar atelectasis or infiltrate. Pneumonia is a consideration. 6. Degenerative changes L4-5 with grade 1 anterolisthesis L4 on L5. 7. Bones appear osteoporotic. D/ / Skyler Pimentel / Skyler Pimentel Interpreting Provider: Skyler Pimentel Consult Discharge Plan - Plan Referrals: Drew Alaniz DO [Primary Care Provider] -
--- NOTE | 2018-04-04 08:41 | Cardiology Consult Note ---
Addendum entered and electronically signed by Lawrence Triplett MD 04/04/18 12:06: I examined this patient and my medical decision-making was reviewed with the [employer]TER. I agree with the documented findings, disposition and treatment plan as described except to the extent set forth below. 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 No indication for urgent invasive evaluation with [facility] at this time. Thank you for the consultation and allowing me to participate in your patient's care. Lawrence Triplett MD [facility] Original Note: Date of Encounter: 04/04/18 Time of Encounter: 08:30 Assessment and Plan (1) Elevated troponin Current Visit: Yes Status: Acute Mild, adynamic troponin elevation in the setting of PNA and chronic systolic CHF; suspect demand ischemia. Presentation is not consistent with ACS. BNP >5000, BP has been poorly controlled as inpt. Atypical chest pain described--reproducible upon exam, worsens with cough. Suspect pleuritic in etiology. Known hx of CMP with LVEF ~20-25%, recent C 08/2017 described stable CAD. No indication for cardiac rehab at this time. Resume Coreg this AM, may benefit from ACEi if BP will tolerate prior to discharge. Resume asa, statin, and BB. No further inpt recommendations from Cardiology, consider supportive care for PNA. (2) Cardiomyopathy Current Visit: No Status: Chronic Hx of suspected ICMP s/p ICD. 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. Recent LHC at [facility], 08/2017--stable CAD described, medical therapy recommended. Appears euvolemic upon exam, caution use of diuretics. Denies recent ICD shock. Will resume home medications including asa, statin, plavix, and coreg. Consider addition of ACEi upon discharge if able. Appears very thin/frail, reports continues to have unintentional weight loss--defer further eval to IM. Na/fluid restricted diet. Daily weights. No further inpatient recommendations from Cardiology. Qualifiers: Cardiomyopathy type: ischemic Qualified Code(s): I25.5 - Ischemic cardiomyopathy (3) Pneumonia Current Visit: Yes Status: Acute PNA noted on CXR. WBC elevated. On IV atb. Continue supportive care per IM. Qualifiers: Pneumonia type: due to unspecified organism Laterality: left Lung location: lower lobe of lung Qualified Code(s): J18.1 - Lobar pneumonia, unspecified organism Discussion w patient/family: The assessment and plan as outlined above was discussed with the patient and/or family members who expressed understanding and agreement. All questions were answered. Thank you for involving us in the care of your patient. Please call with any questions. The patient will be discussed and reviewed with Dr. Triplett; changes to be made accordingly. History of Present Illness Consult date: 04/04/18 Requesting physician: Juan Jose Can Consult reason: Elevated trop Chief complaint: Chest pain History of present illness: Ms. Jensen is a 67 year old female with PMHx significant of CAD s/p PCI, presumed ICMP s/p ICD, chronic systolic CHF, GERD, chronic tobacco use, COPD on home , and hx of CVA who presented to the ED on 04/03/18 with complaints of left-sided chest and epigastric discomfort. Please note that she is a poor historian and forgetful. Reports left-sided chest discomfort started at rest, described as sharp and lasted only minutes. Pain worsens with deep breathing, coughing. Reports pain recurred which prompted ED evaluation. Also c/o left-arm tingling and numbness--upon review, appears to be chronic and described during previous admissions with Neurology work-up in 2017. Ms. Jensen follows with outside Switchboard And Control Room Operator at [facility]. Upon arrival to ED, she was found to have PNA as noted on imaging, WBC elevated. Troponin elevated at 0.16 which prompted Cardiology consult. No acute ST/T wave changes compared to previous ECG. Prior CV testing: TTE 08/17/17: EF 25%, severe LV systolic dysfunction with regional variations, mildly dilated LV, RV is mildly dilated with mild to moderate reduction in function, mild MR/TR, mild-moderate CT, mild PH LHC 08/17/17: 100% ISR of mRCA with ipsilateral and contralateral collaterals, EF 20%; medical therapy recommended. Otherwise--patent stents from previous procedure described in LAD and LCx; otherwise mild, non-obstructive CAD. Past Med Surg Social Fam HX - Past Medical History Attestation: Yes The following information was validated with the patient. Source: patient Medical history: CHF, COPD, coronary artery disease, CVA, hyperlipidemia, hypertension Psychiatric history: no psych history - Past Surgical History Surgical History: AICD Additional surgical history: tubal, heart stents "maybe 2" - Social History Smoking Status: Current every day smoker Smokeless Tobacco Status: No Alcohol use: none Drug use: none - Family History Father Hx Family Cardiac Disorders: Yes (Father with [place]) Medications and Allergies Clopidogrel [Plavix] 75 mg PO DAILY 08/17/17 [History] Furosemide [Lasix] 20 mg PO DAILY 08/17/17 [History] Omeprazole [PriLOSEC] 20 mg PO DAILY PRN 08/17/17 [History] Aspirin 81 mg PO DAILY #30 tab.chew 08/22/17 [Rx] Atorvastatin [Lipitor] 40 mg PO HS #30 tablet 08/22/17 [Rx] Ferrous Sulfate 325 mg PO DAILY 11/08/17 [History] Carvedilol [Coreg] 6.25 mg PO BIDWM 30 Days #60 tablet 11/11/17 [Rx] Allergy/AdvReac Type Severity Reaction Status Date / Time No Known Allergies Allergy Verified 11/08/17 13:59 All Systems Review: The remainder of the systems were reviewed and are negative - Cardiovascular Cardiovascular: as per HPI Physical Examination Vital Signs, Last 4 Hours Temp Pulse Resp BP Pulse Ox 04/04/18 07:02 98.2 F 89 16 150/74 93 04/04/18 07:00 138/79 General: Conversant, Other (emaciated, thin, frail) HEENT: Atraumatic, Normocephaly Cardiac: Reg Rate and Rhythm, Normal S1 and S2 Lungs: Other (coarse breath sounds) Neuro: Alert and responsive (forgetful) Abdomen: Soft Skin: No rashes noted on visualized skin Musculoskeletal: No Chest Wall Tenderness Extremities: No Edema, Normal Pulses Results 04/04/18 06:04 04/04/18 06:04 Lab Results 04/03/18 04/03/18 04/03/18 17:25 17:27 17:27 WBC 14.3 H Hgb 14.1 Hct 47.2 H Plt Count 276 INR 1.0 APTT 28.9 Sodium Potassium Chloride Carbon Dioxide BUN Creatinine Glucose Calcium Magnesium Total Bilirubin AST ALT Alkaline Phosphatase Troponin I B-Natriuretic Peptide > 5000 H Lipase 04/03/18 04/04/18 04/04/18 17:27 00:04 06:04 WBC 10.8 Hgb 12.3 D Hct 40.3 Plt Count 220 INR APTT Sodium 138 Potassium 4.5 Chloride 97 L Carbon Dioxide 31 H BUN 24 H Creatinine 0.60 Glucose 136 H Calcium 9.9 Magnesium Total Bilirubin 0.9 AST 37 ALT 20 Alkaline Phosphatase 116 H Troponin I 0.16 H* 0.17 H* B-Natriuretic Peptide Lipase 8 L 04/04/18 04/04/18 04/04/18 06:04 06:04 06:04 WBC Hgb Hct Plt Count INR 1.1 APTT Sodium 136 Potassium 3.6 Chloride 97 L Carbon Dioxide 29 BUN 21 Creatinine 0.54 L Glucose 77 Calcium 9.2 Magnesium 1.8 Total Bilirubin AST ALT Alkaline Phosphatase Troponin I 0.15 H* B-Natriuretic Peptide Lipase Active Medications Acetaminophen (Tylenol) 650 mg PO Q6HR PRN PRN Reason: Mild Pain/Fever Stop: 10/03/18 22:31 Hydrocodone Bitart/Acetaminophen ([place] 5-325 Mg) 1 tab PO Q6HR PRN PRN Reason: Moderate Pain Stop: 10/03/18 22:31 Last Admin: 04/03/18 23:44 Dose: 1 tab Aspirin (Aspirin Ec) 81 mg PO DAILY [facility] Stop: 10/04/18 09:01 Atorvastatin Calcium (Lipitor) 40 mg PO HS [facility] Stop: 10/04/18 21:01 Carvedilol (Coreg) 6.25 mg PO BIDWM [facility]; Protocol Stop: 10/04/18 08:31 Clopidogrel Bisulfate (Plavix) 75 mg PO DAILY KARI Stop: 10/04/18 09:01 Furosemide (Lasix) 40 mg IVP DAILY KARI Stop: 10/04/18 09:01 Last Admin: 04/04/18 07:45 Dose: 40 mg Heparin Sodium (Porcine) (Heparin) 2,700 unit 60 unit/kg (2700 unit) IVP Q6HR PRN PRN Reason: SEE COMMENTS Stop: 10/04/18 04:06 Heparin Sodium (Porcine) (Heparin) 1,400 unit 30 unit/kg (1400 unit) IVP Q6H PRN PRN Reason: SEE COMMENTS Stop: 10/04/18 04:06 Levofloxacin/Dextrose (Levaquin Premix 750mg/150 Ml) 750 mg in 150 mls @ 100 mls/hr IVPB Q24H KARI; Protocol Stop: 10/04/18 06:01 Last Infusion: 04/04/18 07:47 Dose: Infused Heparin Sodium/Dextrose (Heparin 25,000 Unit/500 Ml D5w) 25,000 unit in 500 mls @ 10.8 mls/hr IVC .Q24H KARI; Protocol Stop: 10/04/18 04:16 Last Admin: 04/04/18 06:06 Dose: 12 unit/kg/hr, 10.8 mls/hr Naloxone HCl (Narcan) 0.4 mg IVP Q2MIN PRN PRN Reason: SEE COMMENTS Stop: 10/03/18 20:08 Nicotine (Nicoderm) 14 mg TD DAILY KARI; Protocol Stop: 10/04/18 09:01 Last Admin: 04/04/18 07:45 Dose: 14 mg Ondansetron HCl (Zofran) 4 mg IVP Q6HR PRN; Protocol PRN Reason: Nausea Stop: 10/03/18 22:31 Oxycodone HCl (Roxicodone) 10 mg PO Q6HR PRN PRN Reason: Severe Pain Stop: 10/03/18 22:31 - Imaging and Cardiology Echo: report reviewed Cardiac cath: report reviewed Other Results: 12 hour tele: avg HR=85 SR. Few PVCs. - EKG Interpretation EKG results cardiology: personally reviewed Consult Discharge Plan - Plan Referrals: Drew Alaniz DO [Primary Care Provider] -
--- NOTE | 2018-04-04 10:54 | Nephrology Consult Note ---
Date of Encounter: 04/04/18 Time of Encounter: 11:00 Assessment and Plan (1) Renal mass Current Visit: Yes Status: Acute Likely malignant, renal biopsy not generally indicated May need further renal mass protocol imaging; CT or MRI and possibly nephrectomy whether partial of whole if stable but ultimately depends on urology, needs to be consulted instead of nephrology (2) Elevated troponin Current Visit: Yes Status: Acute Per cardiology, was on heparin gtt (3) Pneumonia Current Visit: Yes Status: Acute Per primary team Qualifiers: Pneumonia type: due to unspecified organism Laterality: left Lung location: lower lobe of lung Qualified Code(s): J18.1 - Lobar pneumonia, unspecified organism History of Present Illness - Reason for Consult Consult date: 04/04/18 Requesting physician: Richard Butler - History of Present Illness 67 y o female with PMH of HTN, CAD, CHF s/p AICD and COPD with active tobacco use admitted yesterday with left sided chest and epigastric pain. She was diagnosed with L sides PNA and is being treated with abx. Renal consulted for incidental finding of Right renal mass on the inferior pole on CT with contrast measuring [id number] presumed malignant. SCr noted at 0.54, GFR >60. No urinary sxs including hematuria. No flank pain. Pt not the best historian, denies any family history of malignancies. Past Med Surg Social Fam HX - Past Medical History Medical history: CHF, COPD, coronary artery disease, CVA, hyperlipidemia, hypertension Psychiatric history: no psych history - Past Surgical History Surgical History: AICD Additional surgical history: tubal, heart stents "maybe 2" - Social History Smoking Status: Current every day smoker Smokeless Tobacco Status: No Alcohol use: none Drug use: none - Family History Father Hx Family Cardiac Disorders: Yes (Father with [place]) Medications and Allergies Clopidogrel [Plavix] 75 mg PO DAILY 08/17/17 [History] Furosemide [Lasix] 20 mg PO DAILY 08/17/17 [History] Omeprazole [PriLOSEC] 20 mg PO DAILY PRN 08/17/17 [History] Aspirin 81 mg PO DAILY #30 tab.chew 08/22/17 [Rx] Atorvastatin [Lipitor] 40 mg PO HS #30 tablet 08/22/17 [Rx] Ferrous Sulfate 325 mg PO DAILY 11/08/17 [History] Carvedilol [Coreg] 6.25 mg PO BIDWM 30 Days #60 tablet 11/11/17 [Rx] Allergy/AdvReac Type Severity Reaction Status Date / Time No Known Allergies Allergy Verified 11/08/17 13:59 Review of Systems All Systems review (narrative): The rest of the systems are negative Constitutional: fatigue (admits), fever(s) (denies) Cardiovascular: chest pain (admits), leg edema (denies) Genitourinary Female: hematuria (denies) Exam - Vital Signs Vital signs: Initial Vital Signs Temp Pulse Resp BP Pulse Ox 98.0 F 92 20 154/88 96 04/03/18 16:46 04/03/18 16:46 04/03/18 16:46 04/03/18 16:46 04/03/18 16:46 Vital Signs - Last 8 Hours Temp Pulse Resp BP Pulse Ox 04/04/18 07:02 98.2 F 89 16 150/74 93 04/04/18 07:00 138/79 04/04/18 03:45 97.6 F 83 16 171/112 96 Intake and Output 04/03/18 04/04/18 04/04/18 23:59 07:59 15:59 Intake Total 560 / 560 250 / 250 0 / 0 Balance 560 / 560 250 / 250 0 / 0 Intake: IV Fluids 260 / 260 250 / 250 Rocephin 1,000 MG In Water for 10 / 10 inj. (sterile) 10 ML @ 600 mls/ hr IVP ONCE ONE Rx#:[id number] Zithromax 500 mg In Dextrose 5% 250 / 250 250 ML @ 252 mls/hr IVPB ONCE ONE Rx#:[id number] Levaquin Premix 750mg/150 mL 150 / 150 750 mg In 150 ml @ 100 mls/hr IVPB Q24H [facility] Rx#:[id number] Zosyn 3.375 GM In 0.9 % Sodium 100 / 100 Chloride (Mini-Bag +) 100 ML @ 25 mls/hr IVPB Q8HR [facility] Rx#: [id number] Oral 300 / 300 0 / 0 Other: Meal NPO Percent of Meal Consumed 0% # Urine Diapers 1 1 Weight 45 kg 45 kg Blood Glucose* 125 Patient Weight 04/04/18 23:59 Weight 45 kg - General Appearance General appearance: chronically ill, frail EENT: ATNC, mucous membranes moist Neck: no JVD, supple Additional Comments: good areation ant bilat Cardiology: no edema, normal S1, normal S2 Gastrointestinal: no tenderness, no guarding Integumentary: warm and dry Neurologic: no focal deficit Musculoskeletal: no deformities Psychiatric: mood/affect appropriate, cooperative Results - Lab Results 04/04/18 06:04 04/04/18 06:04 Most recent lab results Calcium 9.2 mg/dL (8.6-10.3) 04/04/18 06:04 Phosphorus 3.2 mg/dL (2.7-4.5) 04/04/18 06:04 Magnesium 1.8 mg/dL (1.6-2.6) 04/04/18 06:04 Consult Discharge Plan - Plan Referrals: Drew Alaniz DO [Primary Care Provider] - 04/12/18 2:30 pm (Please follow up as schedule...)
[2018-04-04] MEDS: Aspirin Enteric Coated 81 MG Tablet PO SCH (11:51)
--- NOTE | 2018-04-04 13:22 | Urology - Consult Note ---
Addendum entered and electronically signed by Keven Cobian MD 04/04/18 17:07: Patient also with diagnosis of urinary incontinence. This appears to be mixed. We will discuss further at follow-up. Patient currently in depends. Original Note: <Karen Paniagua N - Last Filed: 04/04/18 13:19> Date of Encounter: 04/04/18 Time of Encounter: 13:20 - Assessment and Plan (1) Renal mass Current Visit: Yes Status: Acute Assessment and plan: Patient is a 67-year-old female who presents with a right renal mass, highly suggestive of renal cell carcinoma. I personally reviewed CT results with patient at bedside. Discussed renal biopsy with interventional radiology is not always reliable for definitive biopsy results. I explained Dr. Cobian will review CT images and further discuss patient's options for management. Urology CN:HPI Consult date: 04/04/18 Reason for consult Urology: Other (right renal mass) History of present illness: Patient is a 67-year-old female who presents with a right renal mass. Patient initially presented to the emergency department with complaints of worsening dyspnea, epigastric pain, and increased left-sided paresthesia. Patient is status post cerebrovascular accident, and she is unable to recall specific past medical history. Patient is cooperative with history and physical and is able to answer to most questions related to her past medical history. Patient states she was admitted to [facility] and treated for pneumonia approximately 1 month ago. Patient believes she finished outpatient oral antibiotics, although, chest x-ray suggests left lower lobe pneumonia. Patient has been admitted for pneumonia under sepsis protocol. Patient underwent contrast CT of the abdomen and pelvis for epigastric pain which revealed a 4 x 5 cm enhancing right renal mass, highly suspicious for renal cell carcinoma. Patient admits to some urge incontinence, and she states this is been ongoing for several years. Patient denies any gross hematuria, flank pain, fever, chills, dysuria, frequency, hesitancy, or other acute changes in her voiding habits. Patient is a long time smoker and states she has smoked cigarettes since age 9. Patient denies any personal history of renal stones and denies any other urologic issues. Patient denies ever seeing a urologist in the past. Patient denies any known past family history of renal stones, renal cancer, or other malignancy. Past Med Surg Social Fam HX - Past Medical History Medical history: CHF, COPD, coronary artery disease, CVA, hyperlipidemia, hypertension Psychiatric history: no psych history - Past Surgical History Surgical History: AICD Additional surgical history: tubal, heart stents "maybe 2" - Social History Smoking Status: Current every day smoker Smokeless Tobacco Status: No Alcohol use: none Drug use: none - Family History Father Hx Family Cardiac Disorders: Yes (Father with AK) Medications and Allergies RX: Clopidogrel [Plavix] 75 mg PO DAILY 08/17/17 [History] RX: Furosemide [Lasix] 20 mg PO DAILY 08/17/17 [History] RX: Omeprazole [PriLOSEC] 20 mg PO DAILY PRN 08/17/17 [History] RX: Aspirin 81 mg PO DAILY #30 tab.chew 08/22/17 [Rx] RX: Atorvastatin [Lipitor] 40 mg PO HS #30 tablet 08/22/17 [Rx] RX: Ferrous Sulfate 325 mg PO DAILY 11/08/17 [History] RX: Carvedilol [Coreg] 6.25 mg PO BIDWM 30 Days #60 tablet 11/11/17 [Rx] Allergy/AdvReac Type Severity Reaction Status Date / Time No Known Allergies Allergy Verified 11/08/17 13:59 Review of Systems - Constitutional fatigue, no chills, no fever(s) - EENT Nose, mouth and throat: dizziness, no headache(s) - Cardiovascular dyspnea, no chest pain, no diaphoresis - Respiratory cough, dyspnea - Gastrointestinal abdominal pain, nausea, no change in bowel habits, no vomiting - Genitourinary Genitourinary: urinary frequency, urinary incontinence, urinary urgency, no change in urinary stream, no difficulty voiding, no dysuria, no flank pain, no hematuria, no urinary hesitancy - Musculoskeletal back pain, no muscle weakness - Integumentary no erythema, no rash - Neurological confusion, sensory deficit, weakness, no syncope - Psychiatric confusion, no anxiety - Hematologic/Lymphatic no easy bleeding, no easy bruising - Allergic/Immunologic no throat swelling, no wheezing Exam Initial Vital Signs Temp Pulse Resp BP Pulse Ox 98.0 F 92 20 154/88 96 04/03/18 16:46 04/03/18 16:46 04/03/18 16:46 04/03/18 16:46 04/03/18 16:46 - General physical appearance Present: no distress, cachectic, chronically ill - Eyes Present: PERRL, normal ocular movement - ENT Present: normal nares, decreased hearing - Neck Present: no masses, trachea midline - Respiratory Present: other (moderate respiratory effort; using nasal cannula ). Absent: normal respiratory effort - Abdomen Abdomen: Present: soft, non tender - Integumentary Present: no rash, no abnormal pigmentation - Neurologic Present: normal coordination Urology Results - Labs 04/04/18 06:04 04/04/18 06:04 Abnormal lab results MCV 82.4 fL (83.0-100.0) L 04/04/18 06:04 MCH 25.2 pg (28.0-33.3) L 04/04/18 06:04 MCHC 30.5 g/dL (31.6-35.5) L 04/04/18 06:04 RDW 17.5 % (11.5-14.5) H 04/04/18 06:04 Chloride 97 mEq/L (98-107) L 04/04/18 06:04 Creatinine 0.54 mg/dL (0.60-1.20) L 04/04/18 06:04 BUN/Creatinine Ratio 39 (6-26) H 04/04/18 06:04 POC Glucose 125 mg/dL (70-99) H 04/03/18 16:47 Alkaline Phosphatase 116 Units/L (34-104) H 04/03/18 17:27 Troponin I 0.15 ng/mL (< 0.04) H* 04/04/18 06:04 B-Natriuretic Peptide > 5000 pg/mL (Less than 100) H 04/03/18 17:25 HDL Cholesterol 74 mg/dL (40-59) H 04/04/18 06:04 Lipase 8 Units/L (11-82) L 04/03/18 17:27 Ur Specific [place] > 1.030 (1.010-1.025) H 04/03/18 19:23 Urine Protein 100 mg/dL (Neg-Trace) H 04/03/18 19:23 Urine Blood Trace (Negative) H 04/03/18 19:23 Ur Leukocyte Esterase Small (Negative) H 04/03/18 19:23 Urine Microscopic RBC TNTC per hpf (0-3) H 04/03/18 19:23 Urine Microscopic WBC TNTC per hpf (0-3) H 04/03/18 19:23 Ur Squamous Epith Cells Many per lpf (None-Few) H 04/03/18 19:23 Ur Culture Indicated? NO. (NO) A 04/03/18 19:23 Diabetes panel 04/03/18 04/04/18 Range/Units 17:27 06:04 Sodium 138 136 (136-145) mEq/L Potassium 4.5 3.6 (3.5-5.1) mEq/L Chloride 97 L 97 L (98-107) mEq/L Carbon Dioxide 31 H 29 (23-29) mEq/L BUN 24 H 21 (8-23) mg/dL Creatinine 0.60 0.54 L (0.60-1.20) mg/dL Glucose 136 H 77 (70-105) mg/dL Calcium 9.9 9.2 (8.6-10.3) mg/dL AST 37 (13-39) Units/L ALT 20 (7-52) Units/L Alkaline Phosphatase 116 H (34-104) Units/L Albumin 4.0 (3.5-5.7) g/dL Triglycerides 79 (< 150) mg/dL HDL Cholesterol 74 H (40-59) mg/dL Calcium panel 04/03/18 04/04/18 Range/Units 17:27 06:04 Calcium 9.9 9.2 (8.6-10.3) mg/dL Phosphorus 3.2 (2.7-4.5) mg/dL Albumin 4.0 (3.5-5.7) g/dL Pituitary panel 04/03/18 04/04/18 Range/Units 17:27 06:04 Sodium 138 136 (136-145) mEq/L Potassium 4.5 3.6 (3.5-5.1) mEq/L Chloride 97 L 97 L (98-107) mEq/L Carbon Dioxide 31 H 29 (23-29) mEq/L BUN 24 H 21 (8-23) mg/dL Creatinine 0.60 0.54 L (0.60-1.20) mg/dL Glucose 136 H 77 (70-105) mg/dL Calcium 9.9 9.2 (8.6-10.3) mg/dL Adrenal panel 04/03/18 04/04/18 Range/Units 17:27 06:04 Sodium 138 136 (136-145) mEq/L Potassium 4.5 3.6 (3.5-5.1) mEq/L Chloride 97 L 97 L (98-107) mEq/L Carbon Dioxide 31 H 29 (23-29) mEq/L BUN 24 H 21 (8-23) mg/dL Creatinine 0.60 0.54 L (0.60-1.20) mg/dL Glucose 136 H 77 (70-105) mg/dL Calcium 9.9 9.2 (8.6-10.3) mg/dL Total Bilirubin 0.9 (0.3-1.0) mg/dL AST 37 (13-39) Units/L ALT 20 (7-52) Units/L Alkaline Phosphatase 116 H (34-104) Units/L Albumin 4.0 (3.5-5.7) g/dL All other labs normal. - Imaging CT scan - abdomen: report reviewed, image reviewed CT scan - pelvis: report reviewed, image reviewed Consult Discharge Plan - Plan Referrals: Drew Alaniz DO [Primary Care Provider] - 04/12/18 2:30 pm (Please follow up as schedule...) <Keven Cobian - Last Filed: 04/04/18 17:06> Date of Encounter: 04/04/18 Urology CN:HPI History of present illness: Patient was seen and examined independently. I review the plan as written by Karen Paniagua. I discussed with the patient her diagnosis of a right renal mass. At this point given the patient's lung status and abdominal pain we will plan on having the patient follow-up with me in 3-4 weeks for further discussion of options. I did briefly discuss with the patient options of observation, nephrectomy, partial nephrectomy. I do not believe that ablative therapies would be possible secondary to the size of the mass. Patient was agreeable to t his plan. Patient patient is scheduled for follow-up on May 03 at 9:45 am. Thank you for the consultation. Exam Initial Vital Signs Temp Pulse Resp BP Pulse Ox 98.0 F 92 20 154/88 96 04/03/18 16:46 04/03/18 16:46 04/03/18 16:46 04/03/18 16:46 04/03/18 16:46 Urology Results - Labs 04/04/18 06:04 04/04/18 06:04 Abnormal lab results MCV 82.4 fL (83.0-100.0) L 04/04/18 06:04 MCH 25.2 pg (28.0-33.3) L 04/04/18 06:04 MCHC 30.5 g/dL (31.6-35.5) L 04/04/18 06:04 RDW 17.5 % (11.5-14.5) H 04/04/18 06:04 Chloride 97 mEq/L (98-107) L 04/04/18 06:04 Creatinine 0.54 mg/dL (0.60-1.20) L 04/04/18 06:04 BUN/Creatinine Ratio 39 (6-26) H 04/04/18 06:04 POC Glucose 125 mg/dL (70-99) H 04/03/18 16:47 Alkaline Phosphatase 116 Units/L (34-104) H 04/03/18 17:27 Troponin I 0.15 ng/mL (< 0.04) H* 04/04/18 06:04 B-Natriuretic Peptide > 5000 pg/mL (Less than 100) H 04/03/18 17:25 HDL Cholesterol 74 mg/dL (40-59) H 04/04/18 06:04 Lipase 8 Units/L (11-82) L 04/03/18 17:27 Ur Specific [place] > 1.030 (1.010-1.025) H 04/03/18 19:23 Urine Protein 100 mg/dL (Neg-Trace) H 04/03/18 19:23 Urine Blood Trace (Negative) H 04/03/18 19:23 Ur Leukocyte Esterase Small (Negative) H 04/03/18 19:23 Urine Microscopic RBC TNTC per hpf (0-3) H 04/03/18 19:23 Urine Microscopic WBC TNTC per hpf (0-3) H 04/03/18 19:23 Ur Squamous Epith Cells Many per lpf (None-Few) H 04/03/18 19:23 Ur Culture Indicated? NO. (NO) A 04/03/18 19:23 Diabetes panel 04/03/18 04/04/18 Range/Units 17:27 06:04 Sodium 138 136 (136-145) mEq/L Potassium 4.5 3.6 (3.5-5.1) mEq/L Chloride 97 L 97 L (98-107) mEq/L Carbon Dioxide 31 H 29 (23-29) mEq/L BUN 24 H 21 (8-23) mg/dL Creatinine 0.60 0.54 L (0.60-1.20) mg/dL Glucose 136 H 77 (70-105) mg/dL Calcium 9.9 9.2 (8.6-10.3) mg/dL AST 37 (13-39) Units/L ALT 20 (7-52) Units/L Alkaline Phosphatase 116 H (34-104) Units/L Albumin 4.0 (3.5-5.7) g/dL Triglycerides 79 (< 150) mg/dL HDL Cholesterol 74 H (40-59) mg/dL Calcium panel 04/03/18 04/04/18 Range/Units 17: 06:04 Calcium 9.9 9.2 (8.6-10.3) mg/dL Phosphorus 3.2 (2.7-4.5) mg/dL Albumin 4.0 (3.5-5.7) g/dL Pituitary panel 04/03/18 04/04/18 Range/Units 17: 06:04 Sodium 138 136 (136-145) mEq/L Potassium 4.5 3.6 (3.5-5.1) mEq/L Chloride 97 L 97 L (98-107) mEq/L Carbon Dioxide 31 H 29 (23-29) mEq/L BUN 24 H 21 (8-23) mg/dL Creatinine 0.60 0.54 L (0.60-1.20) mg/dL Glucose 136 H 77 (70-105) mg/dL Calcium 9.9 9.2 (8.6-10.3) mg/dL Adrenal panel 04/03/18 04/04/18 Range/Units 17:27 06:04 Sodium 138 136 (136-145) mEq/L Potassium 4.5 3.6 (3.5-5.1) mEq/L Chloride 97 L 97 L (98-107) mEq/L Carbon Dioxide 31 H 29 (23-29) mEq/L BUN 24 H 21 (8-23) mg/dL Creatinine 0.60 0.54 L (0.60-1.20) mg/dL Glucose 136 H 77 (70-105) mg/dL Calcium 9.9 9.2 (8.6-10.3) mg/dL Total Bilirubin 0.9 (0.3-1.0) mg/dL AST 37 (13-39) Units/L ALT 20 (7-52) Units/L Alkaline Phosphatase 116 H (34-104) Units/L Albumin 4.0 (3.5-5.7) g/dL All other labs normal.
[2018-04-04] MEDS: *HR* HYDROcodone/Acet 5/325 mg TABLET PO PRN (16:06)
[2018-04-05] MEDS: *HR* HYDROcodone/Acet 5/325 mg TABLET PO PRN ×2 (05:47→15:38)
[2018-04-05] MEDS: Levofloxacin 750 MG/150 ML 750 MG/150 ML BAG IVPB SCH (05:47)
[2018-04-05 07:52] LABS: BUN/Creatinine Ratio 37 (6-26); Blood Urea Nitrogen 19 mg/dL (8-23); Calcium 8.8 mg/dL (8.6-10.3); Carbon Dioxide 33 mEq/L (23-29); Chloride 95 mEq/L (98-107); Glucose 93 mg/dL (70-105); Magnesium 1.6 mg/dL (1.6-2.6); Osmolality,Calculated 278 (280-300); Potassium 3.9 mEq/L (3.5-5.1); Sodium 133 mEq/L (136-145); eGFR For Non-African Americans > 60 (> 60)
[2018-04-05] MEDS: Furosemide 40 MG/4 ML VIAL IVP SCH (08:43)
[2018-04-05] MEDS: Aspirin Enteric Coated 81 MG Tablet PO SCH (08:43)
[2018-04-05] MEDS: Nicotine 14 MG PATCH.TD24 TD SCH (08:43)
[2018-04-05 08:50] LABS: Hematocrit 39.8 % (35.3-44.9); Hemoglobin 12.6 g/dL (11.5-15.4); Mean Corpuscular HGB Conc 31.7 g/dL (31.6-35.5); Mean Corpuscular Hemoglobin 25.5 pg (28.0-33.3); Mean Corpuscular Volume 80.4 fL (83.0-100.0); Mean Platelet Volume 12.1 fL (9.4-12.4); Platelet Count 212 K/mcL (140-400); Red Blood Count 4.95 M/mcL (3.82-4.97)
--- NOTE | 2018-04-05 11:08 | Internal Med Progress Note ---
Hospitalist Progress Note - Encounter Date of Encounter: 04/05/18 Time of Encounter: 11:08 - Subjective Interval History: Pt states she is feeling better today but still tired. She is scared of the cold front coming in and her house is heated with wood apparently. When discussing further eval of her renal mass, she states that she would not like intervention but rather to let it "run it's course" and that "God will take me when it's time". Agreeable to palliative discussion. - Exam Vitals: Temp Pulse Resp BP Pulse Ox 97.3 F L 76 16 106/62 99 04/05/18 07:01 04/05/18 07:01 04/05/18 07:01 04/05/18 07:01 04/05/18 07:01 Exam: General: NAD, good eye contact, appears older than actual age Thoracic: Diminished aeration, does have +egophony L base Cardio: Normal S1 and S2, regular rate and rhythm, no murmurs Abdomen: Soft, nondistended, no longer tender Extremities: Warm, well perfused. DP pulses 2+ b/l. No edema. Skin: Intact. No rashes, bruises, or ulcers Neuro: Awake, oriented to person and place. Speech fluent - Assessment and Plan (1) HCAP (healthcare-associated pneumonia) Current Visit: Yes Status: Acute - Summary of Assessment and Plan Summary of Assessment and Plan: Allyn Jensen is a 67 F w hx HFrEF s/p AICD, CAD s/p PCI 08/23, CVA w residual L sided deficits, COPD on 2L, HTN, HLD, current smoker, who p/w variety of complaints as follows: HCAP: recent inpatient hospitalization but no risk factors for resistant or ganisms - continue empiric levaquin 750 po daily - sputum culture if able Sepsis: resolved, BCx ngtd and lactate wnl New Renal Cell Carcinoma: CT a/p 04/03 showing 4x4x5 enhancing R renal mass at inferior pole - Urology consult, appreciate rec's - patient today refused further workup - Palliative consult Abdominal pain: RUQ US unremarkable, today pain and nausea is resolved CAD: w mild demand ischemia given known RCA occlusion, continue home ASA, plavix, statin Chronic HFrEF 25% s/p AICD: last TTE 08/2017, continue home lasix COPD and chronic hypoxemic respiratory failure on 2L: not in acute exacerbation, no wheezing, is diminished, treat HCAP as above HTN: controlled, continue home meds Hx CVA: residual L sided sensory and motor deficits, head CT w remote infarct and no acute abn Underweight: BMI 16 Severe protein calorie malnutrition: pt cachectic from COPD and possibly also from renal mass Smoker: nicotine patch offered PPx: lovenox FEN: cardiac, no MIVF Lines: PIV Consults: Cardio, Uro, Palliative Code: Full Dispo: inpatient for further eval and management, anticipate 2-3 days, likely will be homegoing with resumption of HH services All of the above were present on admission - Time Spent with Patient Total time spent is greater than 50% in coordination of care (as documented) at patient's floor/unit and/or counseling patient: Internal Medicine: Result - Labs CBC & Chem 7: 04/05/18 07:23 04/05/18 07:23 Labs: Short CBC 04/05/18 Range/Units 07:23 WBC 20.0 H D (4.3-11.1) K/mcL Hgb 12.6 (11.5-15.4) g/dL Hct 39.8 (35.3-44.9) % Plt Count 212 (140-400) K/mcL BMP 04/05/18 07:23 Sodium 133 L Potassium 3.9 Chloride 95 L Carbon Dioxide 33 H BUN 19 Creatinine 0.52 L Glucose 93 Calcium 8.8 - ABG Interpretation ABG results: PT/INR, D-dimer PT 11.9 Seconds (9.4-12.1) 04/04/18 06:04 - Impressions Impressions Chest X-Ray 04/03/18 00:00 IMPRESSION: 1. New left lower lobe pulmonary opacity may represent atelectasis, pneumonia, and/or aspiration. Recommend radiographic follow-up to complete resolution. 2. Trace bilateral pleural effusion. Increased prominence of interstitial lung markings may represent superimposed interstitial edema. Correlate with volume status. 3. Findings suggestive of underlying COPD. D/ / 04/03/2018 17:53:13 Everett Bui MD / [facility] Interpreting Provider: Everett Bui MD Liver Ultrasound 04/04/18 09:00 IMPRESSION: 1. Gallbladder wall thickening adjacent to the gallbladder fossa most likely due to adjacent liver disease, ascites, or a systemic process such as hypoproteinemia. No cholelithiasis nor secondary findings of cholecystitis. Consider further evaluation with a nuclear medicine hepatobiliary scan if there are clinical findings of cholecystitis. 2. 4.9 cm x 3.6 cm x 3.6 cm right renal mass consistent with renal cell carcinoma until proven otherwise. Recommend urology consultation with further evaluation with a dedicated renal protocol MRI or CT. 3. Mild hepatic steatosis in the right hemiliver, corresponding with the CT appearance. 4. Trace ascites. 5. Partially included left pleural effusion. D/ / Venu Reno MD / Venu Reno MD Interpreting Provider: Venu Reno MD Consult Discharge Plan - Plan Referrals: Drew Alaniz DO [Primary Care Provider] - 04/12/18 2:30 pm (Please follow up as schedule...)
--- NOTE | 2018-04-05 14:34 | Palliative - Consult Note ---
<Moi Bolton S - Last Filed: 04/05/18 14:32> Date of Encounter: 04/05/18 Time of Encounter: 14:32 - Assessment and Plan (1) Goals of care, counseling/discussion Current Visit: Yes Status: Acute Assessment and plan: Patient is seen at bedside for goals of care/code status discussion. She is easily agitated and very anxious about the current medical situation and feels very scared about the new diagnosis of renal mass. We had extensive discussion about her options. If she is agreeable to surgery, if that is an option when she is evaluated by the surgeon, we explained that she would be an extremely high risk candidate given her underlying COPD. She is aware that surgery means that she would be likely intubated and given the progressive COPD that the pt has, it would be hard for her to get off the ventilator postoperatively. We also explained to the patient that if she doesn't elect to have the tumor removed and have chemotherapy if she is a candidate, she may have progression of her potential malignancy to the point that she will not qualify for any treatment and her only option will to be made comfortable. She doesn't appear to fully understand her condition nor does she fully understand her decisions. She asked multiple times for us to tell her what she should do and appears to not have full understanding of the severity of her COPD. CODE STATUS discussion with the patient this afternoon as well. She wishes for no mechanical intervention, such as intubation, nor does she wish for compre ssions or defibrillation. She wishes to be a DNR-CCA-DNI. This code status change is explained to the patient and she is in agreement. We will attempt to contact the son, who she states is in [place] doing work, and try to have a family meeting set up at bedside to discuss her options. One option may be to be discharged with hospice and based on her advanced COPD, she may qualify for hospice for her breathing status. (2) Protein calorie malnutrition Current Visit: Yes Status: Acute Assessment and plan: BMI 15.1 - cachexia from COPD and possible underlying malignancy Qualifiers: Protein-calorie malnutrition severity: severe Qualified Code(s): E43 - Unspecified severe protein-calorie malnutrition (3) Pain Current Visit: Yes Status: Acute Assessment and plan: Patient screened for pain - she does state that she has chronic pain on the left side after her stroke - her pain is well controlled with acetaminophen and she is comfortable at this time (4) Renal mass Current Visit: Yes Status: Acute Assessment and plan: CT abdomen on 04/03 showed a 4x5 enhancing right renal mass at inferior pole - Enhancing right renal mass reflecting renal cell carcinoma until proven otherwise. - urology consulted - pt refused further workup to hospitalist, however, during discussion with palliative team she seems to not understand her options fully and appears slightly unsure of what to do. We will further evaluate the patient tomorrow and attempt to set up family meeting (5) Heart failure Current Visit: No Status: Chronic Assessment and plan: NOT in acute exacerbation Last ECHO 08/2017 showed a EF 25% Management per primary. Qualifiers: Heart failure type: systolic Heart failure chronicity: chronic Qualified Code(s): I50.22 - Chronic systolic (congestive) heart failure (6) Tobacco abuse Current Visit: Yes Status: Chronic Assessment and plan: Continues to smoke up to 1ppd (7) HCAP (healthcare-associated pneumonia) Current Visit: Yes Status: Acute Assessment and plan: CXR on 04/03 New left lower lobe pulmonary opacity may represent atelectasis, pneumonia, and/or aspiration. Continue levaquin 750mg PO as per primary Management as per primary Palliative-CN HPI - Data of Consult Patient: new to practice Consult date: 04/05/18 Requesting Physician: Shaji Almnazar Primary Care Provider: Drew Alaniz - Consult Narrative Palliative Care/Comfort Measures: Palliative care Reason for consult: COPD, CHF, new renal mass History of present illness: Ms. Jensen is a 67 year old female with PMH of CHF with reduced EF, CAD, COPD on home oxygen, CVA, HLD, HTN, hx of CVA, and tobacco abuse. She had noticed an increase in numbness/tingling and decided to come to the hospital. She is a very poor historian and isn't really sure why she is here. She did also notice that she was having increasing shortness of breath. SOB was worse with exertion but she denies any fever/chills, cough, increasing sputum production, or diarrhea. The pt was found to have a CXR showing LLL pneumonia vs atelectesis, trace bilateral pleural effusions, and superimposed interstitial edema. CT abd/plv showed an enhancing R renal mass that was considered renal cell carcinoma until proven otherwise. She is currently being treated by hospitalist for pneumonia with levaquin. The patient apperently refused further testing to hospitalist for the renal mass. Palliative care team consulted for further discussion on goals of care and code status. The pt is seen at bedside this afternoon. She doesn't have any complaints of pain, nausea/vomiting, constipation or trouble breathing. Everything seems to be around her baseline pain chapa and she has no acute complaints about symptom management. CC: Shaji Almanzar - Time Spent with Patient Time: Total time spent is greater than 50% in coordination of care (as documented) at patient's floor/unit and/or counseling patient: Time with patient: 20 minutes Past Med Surg Social Fam HX - Past Medical History Medical history: CHF, COPD, coronary artery disease, CVA, hyperlipidemia, hypertension Psychiatric history: no psych history - Past Surgical History Surgical History: AICD Additional surgical history: tubal, heart stents "maybe 2" - Social History Smoking Status: Current every day smoker Smokeless Tobacco Status: No Alcohol use: none Drug use: none - Family History Father Hx Family Cardiac Disorders: Yes (Father with AL) Medications and Allergies Acetaminophen [Tylenol 325mg SUPP] 325 mg RC Q4H PRN 04/05/18 [History] Albuterol Neb [Proventil Neb] 2.5 mg IH Q4HR PRN 04/05/18 [History] Bisacodyl [Gentle Laxative] 10 mg RC HS PRN 04/05/18 [History] Clopidogrel [Plavix] 75 mg PO DAILY 04/05/18 [History] FLUoxetine HCl [PROzac] 10 mg PO DAILY 04/05/18 [History] Ferrous Sulfate [Iron] 325 mg PO TID 04/05/18 [History] Furosemide [Lasix] 20 mg PO BID 04/05/18 [History] Hyoscyamine SL [Levsin SL] 0.125 mg SL Q12H PRN 04/05/18 [History] Isosorbide MONOnitrate (24 HR) [Imdur] 30 mg PO DAILY 04/05/18 [History] LORazepam [Ativan] 0.5 mg PO DAILY PRN 04/05/18 [History] Loratadine [Allergy Relief] 10 mg PO DAILY 04/05/18 [History] Metoprolol Succinate [Toprol Xl] 25 mg PO DAILY 04/05/18 [History] Morphine Sulfate [Morphine Oral Solution] 5 mg SL Q4H PRN 04/05/18 [History] Multivitamin [One Daily Multivitamin] 1 tab PO DAILY 04/05/18 [History] Nitroglycerin [Nitrostat] 0.4 mg SL Q5M PRN 04/05/18 [History] Omeprazole [PriLOSEC] 20 mg PO DAILY 04/05/18 [History] Sacubitril/Valsartan 24/26 mg [Entresto 24 mg-26 mg Tablet] 1 tab PO BID 04/05/18 [History] Allergy/AdvReac Type Severity Reaction Status Date / Time No Known Allergies Allergy Verified 04/04/18 21:17 - Constitutional Constitutional ROS PAL: fatigue, weight loss - Cardiovascular Cardiovascular ROS: dyspnea on exertion - Respiratory Respiratory: cough, dyspnea, dyspnea on exertion - Gastrointestinal Gastrointestinal: no abdominal pain, no constipation, no nausea, no vomiting - Genitourinary Palliative ROS female: urinary incontinence - Musculoskeletal Musculoskeletal ROS IM: arthralgias - Neurological Neurological ROS: weakness - Psychiatric Psychiatric general PM: anxiety Palliative Care-Exam - Constitutional Vitals: Temp Pulse Resp BP Pulse Ox 97.4 F L 74 15 84/46 96 04/05/18 11:09 04/05/18 11:09 04/05/18 11:09 04/05/18 11:09 04/05/18 11:09 General appearance: Present: mild distress, thin Exam: thin female who appears older than stated age - Head Head Exam: Present: atraumatic, normocephalic - Eye Eye exam: Present: sclera anicteric - ENT ENT exam: Present: mucous membranes moist - Respiratory Respiratory exam: Present: accessory muscle use, decreased breath sounds, prolonged expiratory phase - Expanded Respiratory Exam Location: decreased breath sounds: Left, Right, Upper, Lower - Cardiovascular Cardiovascular exam: Present: RRR, +S1, +S2 - GI/Abdominal Exam GI/Abdominal exam: Present: soft. Absent: distended, firm, guarding, rebound, rigid, tenderness - Extremities Exam Extremities exam: Present: normal capillary refill, pedal edema - Neurological Exam Neurological exam: Present: alert, oriented X3 - Skin Skin exam: Present: dry, intact, warm Internal Medicine - CN: Reslt - Labs CBC & Chem 7: 04/05/18 07:23 04/05/18 07:23 Labs: Short CBC 04/05/18 Range/Units 07:23 WBC 20.0 H D (4.3-11.1) K/mcL Hgb 12.6 (11.5-15.4) g/dL Hct 39.8 (35.3-44.9) % Plt Count 212 (140-400) K/mcL BMP 04/05/18 07:23 Sodium 133 L Potassium 3.9 Chloride 95 L Carbon Dioxide 33 H BUN 19 Creatinine 0.52 L Glucose 93 Calcium 8.8 - ABG Interpretation ABG results: PT/INR, D-dimer PT 11.9 Seconds (9.4-12.1) 04/04/18 06:04 - Impressions Impressions Chest X-Ray 04/03/18 00:00 IMPRESSION: 1. New left lower lobe pulmonary opacity may represent atelectasis, pneumonia, and/or aspiration. Recommend radiographic follow-up to complete resolution. 2. Trace bilateral pleural effusion. Increased prominence of interstitial lung markings may represent superimposed interstitial edema. Correlate with volume status. 3. Findings suggestive of underlying COPD. D/ / 04/03/2018 17:53:13 Everett Bui MD / huma Interpreting Provider: Everett Bui MD Consult Discharge Plan - Plan Referrals: Drew Alaniz DO [Primary Care Provider] - 04/12/18 2:30 pm (Please follow up as schedule...) Palliative Quality Palliative Quality: Screen for Code Status: Yes, Screen for Goals of Care: Yes, Screen for Pain: Yes, If Pain Regimen Started, Initiate Bowel Regimen: NA, Screen for Nausea/Vomitting: Yes Code Status: 04/03/18 20:46 CODE [Resuscitation Status: Active] [RES] Routine Comment: Resuscitation Status: Full Code Palliative Scale - Palliative Performance Scale How ambulatory is this patient?: Mainly in bed What is patient's level of activity and evidence of disease?: Unable to do most activity, Extensive disease How much self-care assistance does patient require?: Considerable assistance required How much oral intake does the patient have?: Normal or reduced What is this patient's level of consciousness?: Full or confusion Palliative Performance Score: 50 % <Juliana Loja - Last Filed: 04/05/18 15:48> Date of Encounter: 04/05/18 Palliative-CN HPI - Data of Consult Requesting Physician: Shaji Almanzar Primary Care Provider: Drew Alaniz - Consult Narrative History of present illness: Ms. Jensen is a 67 year old female CC: Shaji Almanzar - Time Spent with Patient Time: Total time spent is greater than 50% in coordination of care (as documented) at patient's floor/unit and/or counseling patient: Palliative Care-Exam - Constitutional Vitals: Temp Pulse Resp BP Pulse Ox 97.4 F L 74 15 84/46 96 04/05/18 11:09 04/05/18 11:09 04/05/18 11:09 04/05/18 11:09 04/05/18 11:09 Internal Medicine - CN: Reslt - Labs CBC & Chem 7: 04/05/18 07:23 04/05/18 07:23 Labs: Short CBC 04/05/18 Range/Units 07:23 WBC 20.0 H D (4.3-11.1) K/mcL Hgb 12.6 (11.5-15.4) g/dL Hct 39.8 (35.3-44.9) % Plt Count 212 (140-400) K/mcL BMP 04/05/18 07:23 Sodium 133 L Potassium 3.9 Chloride 95 L Carbon Dioxide 33 H BUN 19 Creatinine 0.52 L Glucose 93 Calcium 8.8 - ABG Interpretation ABG results: PT/INR, D-dimer PT 11.9 Seconds (9.4-12.1) 04/04/18 06:04 - Impressions Impressions Chest X-Ray 04/03/18 00:00 IMPRESSION: 1. New left lower lobe pulmonary opacity may represent atelectasis, pneumonia, and/or aspiration. Recommend radiographic follow-up to complete resolution. 2. Trace bilateral pleural effusion. Increased prominence of interstitial lung markings may represent superimposed interstitial edema. Correlate with volume status. 3. Findings suggestive of underlying COPD. D/ / 04/03/2018 17:53:13 Everett Bui MD / huma Interpreting Provider: Everett Bui MD - Attending Attestation I performed a history and physical examination of the patient and discussed his management with the resident. I reviewed the residents note and agree with the documented findings and plan of care, except as follow: Patient was AAO x3, in no acute distress. She is a poor historian, and stated she was admitted for stroke. When asked about her current medical condition, she said she was aware there was something on her kidney, but she does not know what to do about it. Pt is aware that she has advanced COPD, and states "I know I will not get better and I am ready to when the time comes." However, in addressing the new renal findings of probable RCC, she is unable to make a decision about continuing work up. Patient does not appear to fully understand her diagnosis or treatment options. As per pt she has a son that is in [place], and she lives at home with and minor grand-son. She thinks her son will be best to make decisions for her, but she did not want us to call him at this time. Pt is unable to make a decision at this time, and palliative care would like input from surgery/IR for full prognosis. Plan is to schedule a family meeting with pt's and pt's son for full GOC discussion. Palliative Quality Code Status: 04/03/18 20:46 CODE [Resuscitation Status: Active] [RES] Routine Comment: Resuscitation Status: Full Code 04/05/18 14:33 Resuscitation Status: Active [RES] Routine Comment: Resuscitation Status: [id number]
[2018-04-05] MEDS ORDERED: Bisacodyl 10 MG RECTAL SUPPOSITORY RC PRN (16:42)
--- NOTE | 2018-04-05 17:19 | Electrocardiograph Report ---
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
[2018-04-05] MEDS: Melatonin 3 MG TABLET PO SCH (19:43)
[2018-04-05] MEDS: Furosemide 20 MG TABLET PO SCH (19:43)
[2018-04-05] MEDS ORDERED: SACUBITRIL/VALSARTAN 24/26 MG TABLET PO SCH (21:00)
[2018-04-06] MEDS ORDERED: 0.9 % Sodium Chloride 500 ML IVC ONE (01:29)
[2018-04-06 05:02] LABS: Basophils % 0.2 %; Eosinophils % 0.2 %; Hematocrit 36.5 % (35.3-44.9); Hemoglobin 11.4 g/dL (11.5-15.4); Immature Granulocytes % 0.7 % (0-4); Lymphocytes # 0.6 K/mcL (0.6-4.6); Lymphocytes % 4.9 %; Mean Corpuscular HGB Conc 31.2 g/dL (31.6-35.5); Mean Corpuscular Hemoglobin 25.7 pg (28.0-33.3); Mean Corpuscular Volume 82.2 fL (83.0-100.0); Mean Platelet Volume 11.1 fL (9.4-12.4); Monocytes % 8.1 %; Platelet Count 175 K/mcL (140-400); Red Blood Count 4.44 M/mcL (3.82-4.97); Segmented Neutrophils % 85.9 %
[2018-04-06] MEDS: Levofloxacin 750 MG/150 ML 750 MG/150 ML BAG IVPB SCH (05:08)
[2018-04-06 05:21] LABS: BUN/Creatinine Ratio 50 (6-26); Blood Urea Nitrogen 26 mg/dL (8-23); Calcium 8.5 mg/dL (8.6-10.3); Carbon Dioxide 32 mEq/L (23-29); Chloride 96 mEq/L (98-107); Glucose 96 mg/dL (70-105); Magnesium 2.4 mg/dL (1.6-2.6); Osmolality,Calculated 281 (280-300); Potassium 3.6 mEq/L (3.5-5.1); Sodium 133 mEq/L (136-145); eGFR For Non-African Americans > 60 (> 60)
--- NOTE | 2018-04-06 06:45 | Event Note ---
Date of Encounter: 04/06/18 Time of Encounter: 00:33 Alerted by pts. nurse RENETTA Covarrubias that the pt. was hypotensive w/BP of 84/48 and was resting and asymptomatic. Inquired what medications the pt. had received prior to this which included Entresto and Lasix at approximately 20:00. Nurse instructed to monitor pts. BP Q15MIN x4 and report values to me. These were 67/41, 66/31, 64/34, and 64/32 (manually). Pt. has hx of CHF and COPD. 500 ml bolus of 0.9 ordered to run at 250 mls/hr w/instructions to continue monitoring BP Q15MIN after bolus finished. First BP 92/56, then 72/44, 73/39, 70/38, and 68/39. Pt. continued to be asymptomatic and was resting. Nurse reported no edema but diminished lung sounds w/a few expiratory wheezes which was unchanged overnight. Communication order entered to hold BP medications, opioid pain medications, and lasix if pts. BP <120/70 d/t repeated hypotension requiring IV fluid bolus. Nurse instructed to pass along information to day team and continue monitoring pt. closely.
[2018-04-06] MEDS: Aspirin Enteric Coated 81 MG Tablet PO SCH (08:54)
[2018-04-06] MEDS: Nicotine 14 MG PATCH.TD24 TD SCH (08:54)
[2018-04-06] MEDS: FLUoxetine HCl 10 MG CAPSULE PO SCH (08:54)
[2018-04-06] MEDS ORDERED: Isosorbide MONOnitrate (24 HR) 30 MG TAB.ER.24H PO SCH (09:00)
[2018-04-06] MEDS ORDERED: Metoprolol XL (24 HR) Succ 25 MG TAB.ER.24H PO SCH (09:00)
[2018-04-06] MEDS: Furosemide 20 MG TABLET PO SCH ×3 (09:10→16:04)
--- NOTE | 2018-04-06 09:55 | Palliative Progress Note ---
<Moi Bolton S - Last Filed: 04/06/18 10:12> Date of Encounter: 04/06/18 Time of Encounter: 09:50 - Assessment and plan (1) Goals of care, counseling/discussion Current Visit: Yes Status: Acute Assessment and plan: Son present at bedside for goals of care discussion. The son is her mPOA. They confirmed that the patient was on [facility] before coming here. They decided upon NOT pursuing diagnosis and treatment of the renal mass. The pt agrees she doesn't want to pursue further workup of the mass. They agreed upon placement in a longterm, preferably [place] as her first choice. Education given for the definition of hospice and that suspected prognosis is less than six months. She is currently comfortable without breakthru pain, nausea, excessive secretions, or anxiety. CODE STATUS changed to DNR-CC. Papers signed by the patient and myself and given to the charge nurse. (2) Protein calorie malnutrition Current Visit: Yes Status: Acute Assessment and plan: BMI 15.3 - cachexia from COPD and possible underlying malignancy Qualifiers: Protein-calorie malnutrition severity: severe Qualified Code(s): E43 - Unspecified severe protein-calorie malnutrition (3) Pain Current Visit: Yes Status: Acute Assessment and plan: Patient screened for pain - she does state that she has chronic pain on the left side after her stroke - her pain is well controlled with acetaminophen and she is comfortable at this time (4) Renal mass Current Visit: Yes Status: Acute Assessment and plan: CT abdomen on 04/03 showed a 4x5 enhancing right renal mass at inferior pole - Enhancing right renal mass reflecting renal cell carcinoma until proven othe rwise. - urology consulted - pt refused further workup to hospitalist. At bedside this morning with son, they decided upon not pursuing further investigation or workup of the mass (5) Heart failure Current Visit: No Status: Chronic Assessment and plan: NOT in acute exacerbation Last ECHO 08/2017 showed a EF 25% Management per primary. Qualifiers: Heart failure type: systolic Heart failure chronicity: chronic Qualified Code(s): I50.22 - Chronic systolic (congestive) heart failure (6) Tobacco abuse Current Visit: Yes Status: Chronic Assessment and plan: Smokes up to 1ppd (7) HCAP (healthcare-associated pneumonia) Current Visit: Yes Status: Acute Assessment and plan: CXR on 1/27 New left lower lobe pulmonary opacity may represent atelectasis, pneumonia, and/or aspiration. Continue levaquin as per primary Management as per primary - Time Spent With Patient Total time spent is greater than 50% in coordination of care (as documented) at patient's floor/unit and/or counseling patient: 25 - 35 minutes - Subjective Interval history: Pt seen at bedside. Son, who is mPOA, is at bedside for family meeting. She is in no acute distress and has no acute complaints. Pain is well controlled, she denies nausea. Family meeting today took place to decide goals of care. - Constitutional Vitals: Abnormal lab results WBC 12.8 K/mcL (4.3-11.1) H 04/06/18 04:48 Hgb 11.4 g/dL (11.5-15.4) L 04/06/18 04:48 MCV 82.2 fL (83.0-100.0) L 04/06/18 04:48 MCH 25.7 pg (28.0-33.3) L 04/06/18 04:48 MCHC 31.2 g/dL (31.6-35.5) L 04/06/18 04:48 RDW 18.0 % (11.5-14.5) H 04/06/18 04:48 Neutrophils # 11.0 K/mcL (1.6-8.9) H 04/06/18 04:48 Sodium 133 mEq/L (136-145) L 04/06/18 04:48 Chloride 96 mEq/L (98-107) L 04/06/18 04:48 Carbon Dioxide 32 mEq/L (23-29) H 04/06/18 04:48 BUN 26 mg/dL (8-23) H 04/06/18 04:48 Creatinine 0.52 mg/dL (0.60-1.20) L 04/06/18 04:48 BUN/Creatinine Ratio 50 (6-26) H 04/06/18 04:48 POC Glucose 125 mg/dL (70-99) H 04/03/18 16:47 Calcium 8.5 mg/dL (8.6-10.3) L 04/06/18 04:48 Alkaline Phosphatase 116 Units/L (34-104) H 04/03/18 17:27 Troponin I 0.15 ng/mL (< 0.04) H* 04/04/18 06:04 B-Natriuretic Peptide > 5000 pg/mL (Less than 100) H 04/03/18 17:25 HDL Cholesterol 74 mg/dL (40-59) H 04/04/18 06:04 Lipase 8 Units/L (11-82) L 04/03/18 17:27 Ur Specific [place] > 1.030 (1.010-1.025) H 04/03/18 19:23 Urine Protein 100 mg/dL (Neg-Trace) H 04/03/18 19:23 Urine Blood Trace (Negative) H 04/03/18 19:23 Ur Leukocyte Esterase Small (Negative) H 04/03/18 19:23 Urine Microscopic RBC TNTC per hpf (0-3) H 04/03/18 19:23 Urine Microscopic WBC TNTC per hpf (0-3) H 04/03/18 19:23 Ur Squamous Epith Cells Many per lpf (None-Few) H 04/03/18 19:23 Ur Culture Indicated? NO. (NO) A 04/03/18 19:23 General appearance: Present: no acute distress, thin - Head Head exam: Present: atraumatic, normocephalic - Eye Eye exam: Present: sclera anicteric - Neck Neck exam: Present: normal inspection - Respiratory Respiratory exam: Present: accessory muscle use, decreased breath sounds, prolonged expiratory phase - Cardiovascular Cardiovascular exam: Present: RRR, +S1, +S2 - GI/Abdominal GI/Abdominal exam: Present: soft. Absent: distended, firm, guarding, rigid, tenderness - Extremities Exam Extremities exam: Present: normal capillary refill, normal inspection. Absent: tenderness - Neurological Exam Neurological exam: Present: alert, oriented X3 - Psychiatric Psychiatric exam: Present: anxious - Skin Skin exam: Present: dry, intact, warm Palliative Quality Palliative Quality: Screen for Code Status: Yes, Screen for Goals of Care: Yes, Screen for Pain: Yes, If Pain Regimen Started, Initiate Bowel Regimen: NA, Screen for Nausea/Vomitting: Yes Code Status: 04/03/18 20:46 CODE [Resuscitation Status: Active] [RES] Routine Comment: Resuscitation Status: Full Code 04/05/18 14:33 Resuscitation Status: Active [RES] Routine Comment: Resuscitation Status: [id number] - Labs CBC & Chem 7: 01/30/19 04:48 04/06/18 04:48 Labs: Laboratory Results - last 24 hr 04/06/18 04/06/18 04:48 04:48 WBC 12.8 H RBC 4.44 Hgb 11.4 L Hct 36.5 MCV 82.2 L MCH 25.7 L MCHC 31.2 L RDW 18.0 H Plt Count 175 MPV 11.1 Immature Gran % 0.7 Seg Neutrophils % 85.9 Lymphocytes % 4.9 Monocytes % 8.1 Eosinophils % 0.2 Basophils % 0.2 Neutrophils # 11.0 H Lymphocytes # 0.6 Monocytes # 1.0 Eosinophils # 0.0 Basophils # 0.0 Sodium 133 L Potassium 3.6 Chloride 96 L Carbon Dioxide 32 H BUN 26 H Creatinine 0.52 L Est GFR ( Amer) > 60 Est GFR (Non-Af Amer) > 60 BUN/Creatinine Ratio 50 H Glucose 96 Calculated Osmolality 281 Calcium 8.5 L Magnesium 2.4 - ABG Interpretation ABG results: PT/INR, D-dimer PT 11.9 Seconds (9.4-12.1) 04/04/18 06:04 Palliative Scale - Palliative Performance Scale How ambulatory is this patient?: Mainly in bed What is patient's level of activity and evidence of disease?: Unable to do most activity, Extensive disease How much self-care assistance does patient require?: Considerable assistance required How much oral intake does the patient have?: Normal or reduced What is this patient's level of consciousness?: Full or confusion Palliative Performance Score: 50 % Consult Discharge Plan - Plan Referrals: Drew Alaniz, [Primary Care Provider] - 04/12/18 2:30 pm (Please follow up as schedule...) <Juliana Loja - Last Filed: 04/06/18 14:27> Date of Encounter: 04/06/18 - Time Spent With Patient Total time spent is greater than 50% in coordination of care (as documented) at patient's floor/unit and/or counseling patient: - Constitutional Vitals: Abnormal lab results WBC 12.8 K/mcL (4.3-11.1) H 04/06/18 04:48 Hgb 11.4 g/dL (11.5-15.4) L 04/06/18 04:48 MCV 82.2 fL (83.0-100.0) L 04/06/18 04:48 MCH 25.7 pg (28.0-33.3) L 04/06/18 04:48 MCHC 31.2 g/dL (31.6-35.5) L 04/06/18 04:48 RDW 18.0 % (11.5-14.5) H 04/06/18 04:48 Neutrophils # 11.0 K/mcL (1.6-8.9) H 04/06/18 04:48 Sodium 133 mEq/L (136-145) L 04/06/18 04:48 Chloride 96 mEq/L (98-107) L 04/06/18 04:48 Carbon Dioxide 32 mEq/L (23-29) H 04/06/18 04:48 BUN 26 mg/dL (8-23) H 04/06/18 04:48 Creatinine 0.52 mg/dL (0.60-1.20) L 04/06/18 04:48 BUN/Creatinine Ratio 50 (6-26) H 04/06/18 04:48 POC Glucose 125 mg/dL (70-99) H 04/03/18 16:47 Calcium 8.5 mg/dL (8.6-10.3) L 04/06/18 04:48 Alkaline Phosphatase 116 Units/L (34-104) H 04/03/18 17:27 Troponin I 0.15 ng/mL (< 0.04) H* 04/04/18 06:04 B-Natriuretic Peptide > 5000 pg/mL (Less than 100) H 04/03/18 17:25 HDL Cholesterol 74 mg/dL (40-59) H 04/04/18 06:04 Lipase 8 Units/L (11-82) L 04/03/18 17:27 Ur Specific [place] > 1.030 (1.010-1.025) H 04/03/18 19:23 Urine Protein 100 mg/dL (Neg-Trace) H 04/03/18 19:23 Urine Blood Trace (Negative) H 04/03/18 19:23 Ur Leukocyte Esterase Small (Negative) H 04/03/18 19:23 Urine Microscopic RBC TNTC per hpf (0-3) H 04/03/18 19:23 Urine Microscopic WBC TNTC per hpf (0-3) H 04/03/18 19:23 Ur Squamous Epith Cells Many per lpf (None-Few) H 04/03/18 19:23 Ur Culture Indicated? NO. (NO) A 04/03/18 19:23 - Attending Attestation I performed a history and physical examination of the patient and discussed his management with the resident. I reviewed the residents note and agree with the documented findings and plan of care, except as follow: Patient was more alert and oriented today, and more assertive in her decisions. She states to be feeling better, denies any shortness of breath and any pain. Son Homer ayers was present by the bedside. Discussed patient's current medical condition, including COPD and new diagnosis of renal lesion, discussed trajectory of illness, prognosis and treatment options. Patient and son confirmed that she was on home hospice before current admission due to COPD. Reviewed the hospice criteria and philosophy, and they agreed. In naomy of her GOC, pt and son agree that they would not wants to pursue any further work up patient father reexamination, seems they would not want to proceed any treatment for it. Patient and family state they have discussed and there would like patient to be discharged to the longterm via preferred facility is age wound, Patient states has son Kamilla is her M POA, asked to bring paperworks. She also was CODE STATUS changed to DNR CC. State Form filed and signed. Palliative Quality Code Status: 04/03/18 20:46 CODE [Resuscitation Status: Active] [RES] Routine Comment: Resuscitation Status: Full Code 04/05/18 14:33 Resuscitation Status: Active [RES] Routine Comment: Resuscitation Status: [id number] 04/06/18 10:15 CODE [Resuscitation Status: Active] [RES] Routine Comment: Resuscitation Status: DNR-Comfort Care - Labs CBC & Chem 7: 04/06/18 04:48 04/06/18 04:48 Labs: Laboratory Results - last 24 hr 04/06/18 04/06/18 04:48 04:48 WBC 12.8 H RBC 4.44 Hgb 11.4 L Hct 36.5 MCV 82.2 L MCH 25.7 L MCHC 31.2 L RDW 18.0 H Plt Count 175 MPV 11.1 Immature Gran % 0.7 Seg Neutrophils % 85.9 Lymphocytes % 4.9 Monocytes % 8.1 Eosinophils % 0.2 Basophils % 0.2 Neutrophils # 11.0 H Lymphocytes # 0.6 Monocytes # 1.0 Eosinophils # 0.0 Basophils # 0.0 Sodium 133 L Potassium 3.6 Chloride 96 L Carbon Dioxide 32 H BUN 26 H Creatinine 0.52 L Est GFR ( Amer) > 60 Est GFR (Non-Af Amer) > 60 BUN/Creatinine Ratio 50 H Glucose 96 Calculated Osmolality 281 Calcium 8.5 L Magnesium 2.4 - ABG Interpretation ABG results: PT/INR, D-dimer PT 11.9 Seconds (9.4-12.1) 04/04/18 06:04
[2018-04-06] MEDS ORDERED: Sennosides 8.6 MG TABLET PO PRN (09:57)
--- NOTE | 2018-04-06 11:56 | Internal Med Progress Note ---
Hospitalist Progress Note - Encounter Date of Encounter: 04/06/18 Time of Encounter: 09:00 - Subjective Interval History: Patient has less cough or shortness of breath. No fever overnight. Overnight hypotensive episode noticed. Patient denies dizziness or lightheaded. BP is still on lower site today, hypertensive medication and pain medication is on hold. - Exam Vitals: Temp Pulse Resp BP Pulse Ox 97.4 F L 76 18 77/48 99 04/06/18 11:11 04/06/18 11:11 04/06/18 11:11 04/06/18 11:11 04/06/18 11:11 Exam: General: NAD, good eye contact, appears older than actual age, thin built Thoracic: Diminished aeration, does have +egophony L base Cardio: Normal S1 and S2, regular rate and rhythm, no murmurs Abdomen: Soft, nondistended, mild tenderness without rebound or guarding Extremities: Warm, well perfused. DP pulses 2+ b/l. No edema. Skin: Intact. No rashes, bruises, or ulcers Neuro: Awake, oriented to person and place. Speech fluent, left side residual w eakness because of previous CVA. - Assessment and Plan (1) CAD (coronary artery disease) Current Visit: No Status: Chronic Assessment and Plan: -Hx of CAD s/p PCI 08/23 - Denies chest pain, continue home medications Plavix. Hold metoprolol and imdur because of low BP. (2) Underweight Current Visit: No Status: Acute Assessment and Plan: -BMI 16, probably due to RCC. (3) COPD (chronic obstructive pulmonary disease) Current Visit: No Status: Chronic Assessment and Plan: No wheezing. No signs of exacerbation. Continue home medications (4) DVT prophylaxis Current Visit: No Status: Acute Assessment and Plan: -SQ heparin (5) Systolic CHF, chronic Current Visit: No Status: Chronic Assessment and Plan: -Hx of systolic HF s/p AICD -TTE 08/17/17: EF 25%, severe LV systolic dysfunction with regional variation, mild dilation LV, mild RV dilation with mild-mod reduction in function, mild MR/TR, mild-mod [place], mild PH -CXR 04/03/18: New LLL opacity may represent atelectesis, pneumonia, aspiration. Trace bilateral pleural effusion. Increased prominance of interstitial lung markings, may represent superimposed interstitial edema -BNP >5000 -Will continue furosemide, fluid restriction, daily weight, and strict I&O's (6) Pneumonia Current Visit: Yes Status: Acute (7) Sepsis Current Visit: Yes Status: Acute Assessment and Plan: -Likely 2/2 LLL pneumonia -HR 92, WBC 14.3 and evidence of LLL pnuemonia on imaging -Afebrile -Lactic wnl -BC x2 pending - Abx deescalated to levaquin now, will continue. WBC trended down. (8) Renal mass Current Visit: Yes Status: Acute Assessment and Plan: -New R renal mass on CT - Consider RCC, pt is DNRCC, does not want any further procedures, will DC patient to hospice per patient's wishes. (9) Pleural effusion Current Visit: Yes Status: Acute Assessment and Plan: -As above in CHF assessment (10) Hypertension Current Visit: Yes Status: Chronic Assessment and Plan: -BP is at lower side now, will hold HTN meds. (11) Elevated troponin Current Visit: Yes Status: Acute Assessment and Plan: -Initial troponin 0.16 -Likely 2/2 sepsis or heart failure with low output -troponin level is flat. 0.16-0.17-0.15, patient denies chest pain, no further cardiac workup (12) Abdominal pain Current Visit: Yes Status: Acute Assessment and Plan: CT abd shows renal mass. Pt and family will pursue hospice, they don't want any further workup. (13) Tobacco abuse Current Visit: Yes Status: Chronic Assessment and Plan: -Current 1/2 ppd smoker -Recommend cessation at dc -Nicotine patch - Time Spent with Patient Total time spent is greater than 50% in coordination of care (as documented) at patient's floor/unit and/or counseling patient: 25 - 35 minutes Plan of Care Discussed with: family Internal Medicine: Result - Labs CBC & Chem 7: 04/06/18 04:48 04/06/18 04:48 Labs: Short CBC 04/06/18 Range/Units 04:48 WBC 12.8 H (4.3-11.1) K/mcL Hgb 11.4 L (11.5-15.4) g/dL Hct 36.5 (35.3-44.9) % Plt Count 175 (140-400) K/mcL Neutrophils # 11.0 H (1.6-8.9) K/mcL BMP 04/06/18 04:48 Sodium 133 L Potassium 3.6 Chloride 96 L Carbon Dioxide 32 H BUN 26 H Creatinine 0.52 L Glucose 96 Calcium 8.5 L - ABG Interpretation ABG results: PT/INR, D-dimer PT 11.9 Seconds (9.4-12.1) 04/04/18 06:04 Consult Discharge Plan - Plan Referrals: Drew Alaniz DO [Primary Care Provider] - 04/12/18 2:30 pm (Please follow up as schedule...) (1) CAD (coronary artery disease) Qualifiers: Coronary Disease-Associated Artery/Lesion type: false pass artery [place] vs. transplanted heart: false pass heart Associated angina: angina presence unspecified Qualified Code(s): I25.10 - Atherosclerotic heart disease of false pass coronary artery without angina pectoris (3) COPD (chronic obstructive pulmonary disease) Qualifiers: COPD type: unspecified COPD Qualified Code(s): J44.9 - Chronic obstructive pulmonary disease, unspecified (6) Pneumonia Qualifiers: Pneumonia type: due to unspecified organism Laterality: left Lung location: lower lobe of lung Qualified Code(s): J18.1 - Lobar pneumonia, unspecified organism (7) Sepsis Qualifiers: Sepsis type: sepsis due to unspecified organism Qualified Code(s): A41.9 - Sepsis, unspecified organism (10) Hypertension Qualifiers: Hypertension type: essential hypertension Qualified Code(s): I10 - Essential (primary) hypertension (12) Abdominal pain Qualifiers: Abdominal location: epigastric Qualified Code(s): R10.13 - Epigastric pain
[2018-04-06] MEDS: *HR* Heparin 5,000 UNIT/ML VIAL SQ SCH (18:33)
[2018-04-06] MEDS: Melatonin 3 MG TABLET PO SCH (20:06)
[2018-04-07] MEDS: Levofloxacin 750 MG/150 ML 750 MG/150 ML BAG IVPB SCH (05:09)
[2018-04-07] MEDS: *HR* Heparin 5,000 UNIT/ML VIAL SQ SCH (05:09)
[2018-04-07 07:11] VITALS: BP 113/62
[2018-04-07] MEDS: Nicotine 14 MG PATCH.TD24 TD SCH (07:59)
[2018-04-07] MEDS: Aspirin Enteric Coated 81 MG Tablet PO SCH (07:59)
[2018-04-07] MEDS: FLUoxetine HCl 10 MG CAPSULE PO SCH (07:59)
[2018-04-07] MEDS: Furosemide 20 MG TABLET PO SCH (08:02)
[2018-04-07] MEDS ORDERED: Loratadine 10 MG TABLET PO SCH (09:00)
--- NOTE | 2018-04-07 09:27 | Event Note ---
<Moi Bolton - Last Filed: 04/07/18 09:25> Date of Encounter: 04/07/18 Time of Encounter: 09:25 Ms Jensen is a 67yo female with PMH COPD on home oxygen, CHF, HTN, and suspected renal cell carcinoma. She is seen at bedside this morning and has no acute complaints. She denies pain, nausea/vomiting, constipation, or abd pain. She is feeling ok, breathing at baseline. No more hypotensive episodes overnight. She is to be discharged to [place] today with hospice. Her CODE STATUS was changed to DNR-CC yesterday and papers were signed by myself and the patient. She is okay with the plan to not pursue treatment or workup of the suspected malignant mass on her kidney. Palliative will sign off at this time. <Juliana Loja - Last Filed: 04/07/18 12:02> Date of Encounter: 04/07/18 Discussed with resident's, agree with for both note.
--- NOTE | 2018-04-07 10:42 | Discharge Summary ---
- NOTES TO OUTPATIENT PROVIDER Notes to Outpatient Provider: 1. Cont po levaquin for 3 more days to finish 7 day course. 2. Her home meds entresto and imdur and metoprolol was on hold because of hypotension, please consider resume if pt is indicated again. Orders not resulted at time of discharge: Pending orders 04/03/18 19:02 Culture,Blood [BC] Stat Date of Encounter: 04/07/18 Time of Encounter: 10:00 - Discharge Diagnosis (1) CAD (coronary artery disease) Priority: Secondary Status: Chronic Qualifiers: Coronary Disease-Associated Artery/Lesion type: [place] artery [place] vs. transplanted heart: [place] heart Associated angina: angina presence unspecified Qualified Code(s): I25.10 - Atherosclerotic heart disease of [place] coronary artery without angina pectoris (2) Underweight Priority: Secondary Status: Acute (3) COPD (chronic obstructive pulmonary disease) Priority: Secondary Status: Chronic Qualifiers: COPD type: unspecified COPD Qualified Code(s): J44.9 - Chronic obstructive pulmonary disease, unspecified (4) DVT prophylaxis Priority: Secondary Status: Acute (5) Systolic CHF, chronic Priority: Secondary Status: Chronic (6) Pneumonia Priority: Primary Status: Acute Qualifiers: Pneumonia type: due to unspecified organism Laterality: left Lung location: lower lobe of lung Qualified Code(s): J18.1 - Lobar pneumonia, un specified organism (7) Sepsis Priority: Primary Status: Acute Qualifiers: Sepsis type: sepsis due to unspecified organism Qualified Code(s): A41.9 - Sepsis, unspecified organism (8) Renal mass Priority: Primary Status: Acute (9) Pleural effusion Priority: Secondary Status: Acute (10) Hypertension Priority: Secondary Status: Chronic Qualifiers: Hypertension type: essential hypertension Qualified Code(s): I10 - Essential (primary) hypertension (11) Elevated troponin Priority: Secondary Status: Acute (12) Abdominal pain Priority: Primary Status: Acute Qualifiers: Abdominal location: epigastric Qualified Code(s): R10.13 - Epigastric pain (13) Tobacco abuse Priority: Secondary Status: Chronic Hospital course: Ms. Jensen is a 67 year old female present to ER for left-sided numbness. Patient has a history of CVA with residual left-sided weakness. In the emergency room, patient was found left lower lobe pneumonia with leukocytosis. Patient was treated with antibiotic for pneumonia. Patient also was found right renal mass which suggests renal cell cancer. Patient and family does not want further testing/workup and would like to pursue hospice service. Patient had one episode of hypotension with BP at 70s. BP back to normal range after hold all her hypertensive medications. Patient has no cough/fever, in no acute respiratory distress. She was accepted by hospice service will discharge her to hospice today. I have seen and examined the patient today. Denies fever, cough, shortness of breath. Vitals are stable. SPO2 95% in room air. Will DC patient to hospice today for further palliative management. Discharge discussed with: patient Time spent discussing smoking cessation with patient: 3 to 10 minutes - Time Spent with Patient Total time spent providing and/or coordinating discharge services: 25 minutes Less than 30 minutes - Discharge Medications Prescriptions: Ondansetron [Zofran] 4 mg IVP Q6HR PRN 5 Days #20 vial PRN Reason: Nausea Docusate [Colace] 100 mg PO BID 7 Days #14 capsule levoFLOXacin [Levaquin] 750 mg PO DAILY 3 Days #3 tablet LORazepam [Ativan] 0.5 mg PO DAILY PRN 3 Days #3 tablet PRN Reason: Anxiety Morphine Sulfate [Morphine Oral Solution] 5 mg SL Q4H PRN 2 Days #12 solution PRN Reason: Pain Nicotine Patch [Nicoderm] 14 mg TD DAILY 14 Days #14 patch.td24 Home Medications: Acetaminophen [Tylenol 325mg SUPP] 325 mg RC Q4H PRN 04/05/18 [History] Albuterol Neb [Proventil Neb] 2.5 mg IH Q4HR PRN 04/05/18 [History] Bisacodyl [Gentle Laxative] 10 mg RC HS PRN 04/05/18 [History] Clopidogrel [Plavix] 75 mg PO DAILY 04/05/18 [History] FLUoxetine HCl [Prozac] 10 mg PO DAILY 04/05/18 [History] Ferrous Sulfate [Iron] 325 mg PO TID 04/05/18 [History] Furosemide [Lasix] 20 mg PO BID 04/05/18 [History] Hyoscyamine SL [Levsin Sl] 0.125 mg SL Q12H PRN 04/05/18 [History] Loratadine [Allergy Relief] 10 mg PO DAILY 04/05/18 [History] Multivitamin [One Daily Multivitamin] 1 tab PO DAILY 04/05/18 [History] Nitroglycerin [Nitrostat] 0.4 mg SL Q5M PRN 04/05/18 [History] Omeprazole [PriLOSEC] 20 mg PO DAILY 04/05/18 [History] Docusate [Colace] 100 mg PO BID 7 Days #14 capsule 04/07/18 [Rx] LORazepam [Ativan] 0.5 mg PO DAILY PRN 3 Days #3 tablet 04/07/18 [Rx] Morphine Sulfate [Morphine Oral Solution] 5 mg SL Q4H PRN 2 Days #12 solution 04/07/18 [Rx] Nicotine Patch [Nicoderm] 14 mg TD DAILY 14 Days #14 patch.td24 04/07/18 [Rx] Ondansetron [Zofran] 4 mg IVP Q6HR PRN 5 Days #20 vial 04/07/18 [Rx] levoFLOXacin [Levaquin] 750 mg PO DAILY 3 Days #3 tablet 04/07/18 [Rx] Allergies/Adverse Reactions: Allergy/AdvReac Type Severity Reaction Status Date / Time No Known Allergies Allergy Verified 04/04/18 21:17 Date of admission: 04/05/18 08:08 Primary care physician: Drew Alaniz Consults: 04/03/18 22:11 Consult to Nephrology [CONS] Routine Consulting Provider: Kidney Isela/SHERI/EDGAR/ELVIA Reason for Consult: New enhancing mass R kidney Time Notified: 22:12 Call Completed: No 04/03/18 22:12 Consult to Cardiology [CONS] Routine Comment: Consulting Provider: Cardiology Isela Reason for Consult: hx of HF s/p AICD, small pleural effusion and interstitial edema, EF 25% 08/23, PCI 08/23 on DAP therapy still, mild elevation in troponin 0.16 in setting of sepsis 2/2 likely LLL pneumonia Time Notified: 22:14 Call Completed: No 04/04/18 08:52 Consult to Nurse Navigator [CONS] Routine Comment: pn 04/04/18 12:07 Consult to Urology [CONS] Routine Consulting Provider: Urology Isela Reason for Consult: renal mass Time Notified: 12:08 Call Completed: Yes 04/05/18 11:07 Consult to Palliative Care [CONS] Routine Comment: Consulting Provider: Palliative Care Isela Reason for Consult: COPD and CHF, new renal mass Call Completed: Yes Discharging clinician: Magdalena Ceron Anticipated date of discharge: 04/07/18 - Constitutional Vitals: Temp Pulse Resp BP Pulse Ox 98.1 F 75 16 113/62 95 04/07/18 07:09 04/07/18 07:09 04/07/18 07:09 04/07/18 07:09 04/07/18 07:09 General appearance: Present: cooperative, A&O X 3, pleasant, no acute distress, underweight Exam: General: NAD, good eye contact, appears older than actual age, thin built Thoracic: Diminished aeration, CTA b/l Cardio: Normal S1 and S2, regular rate and rhythm, no murmurs Abdomen: Soft, nondistended, mild tenderness without rebound or guarding Extremities: Warm, well perfused. DP pulses 2+ b/l. No edema. Skin: Intact. No rashes, bruises, or ulcers Neuro: Awake, oriented to person and place. Speech fluent, left side residual weakness because of previous CVA. - Patient Status Disposition: Hospice - Medical Facility Condition: Fair Functional capacity at discharge: wheelchair bound Overall status at discharge: patient is progressing back to baseline - Discharge Instructions Instructions: Sepsis (DC), Pneumonia (DC) Follow Up With: Drew Alaniz DO [Primary Care Provider] - 04/12/18 2:30 pm (Please follow up as schedule...) - Diet and Activity Activity: as per physical therapy Diet: low fat, low cholesterol, low salt diet
--- NOTE | 2018-04-07 11:14 | Physician Discharge Referral ---
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 - Diagnosis (1) CAD (coronary artery disease) Status: Chronic (2) Underweight Status: Acute (3) COPD (chronic obstructive pulmonary disease) Status: Chronic (4) DVT prophylaxis Status: Acute (5) Systolic CHF, chronic Status: Chronic (6) Pneumonia Status: Acute (7) Sepsis Status: Acute (8) Renal mass Status: Acute (9) Pleural effusion Status: Acute (10) Hypertension Status: Chronic (11) Elevated troponin Status: Acute (12) Abdominal pain Status: Acute (13) Tobacco abuse Status: Chronic - Transfer Medications Prescriptions: Ondansetron [Zofran] 4 mg IVP Q6HR PRN 5 Days #20 vial PRN Reason: Nausea Docusate [Colace] 100 mg PO BID 7 Days #14 capsule levoFLOXacin [Levaquin] 750 mg PO DAILY 3 Days #3 tablet LORazepam [Ativan] 0.5 mg PO DAILY PRN 3 Days #3 tablet PRN Reason: Anxiety Morphine Sulfate [Morphine Oral Solution] 5 mg SL Q4H PRN 2 Days #12 solution PRN Reason: Pain Nicotine Patch [Nicoderm] 14 mg TD DAILY 14 Days #14 patch.td24 Home Medications: Acetaminophen [Tylenol 325mg SUPP] 325 mg RC Q4H PRN 04/05/18 [History] Albuterol Neb [Proventil Neb] 2.5 mg IH Q4HR PRN 04/05/18 [History] Bisacodyl [Gentle Laxative] 10 mg RC HS PRN 04/05/18 [History] Clopidogrel [Plavix] 75 mg PO DAILY 04/05/18 [History] FLUoxetine HCl [Prozac] 10 mg PO DAILY 04/05/18 [History] Ferrous Sulfate [Iron] 325 mg PO TID 04/05/18 [History] Furosemide [Lasix] 20 mg PO BID 04/05/18 [History] Hyoscyamine SL [Levsin Sl] 0.125 mg SL Q12H PRN 04/05/18 [History] Loratadine [Allergy Relief] 10 mg PO DAILY 04/05/18 [History] Multivitamin [One Daily Multivitamin] 1 tab PO DAILY 04/05/18 [History] Nitroglycerin [Nitrostat] 0.4 mg SL Q5M PRN 01/29/19 [History] Omeprazole [PriLOSEC] 20 mg PO DAILY 04/05/18 [History] Docusate [Colace] 100 mg PO BID 7 Days #14 capsule 04/07/18 [Rx] LORazepam [Ativan] 0.5 mg PO DAILY PRN 3 Days #3 tablet 04/07/18 [Rx] Morphine Sulfate [Morphine Oral Solution] 5 mg SL Q4H PRN 2 Days #12 solution 04/07/18 [Rx] Nicotine Patch [Nicoderm] 14 mg TD DAILY 14 Days #14 patch.td24 04/07/18 [Rx] Ondansetron [Zofran] 4 mg IVP Q6HR PRN 5 Days #20 vial 04/07/18 [Rx] levoFLOXacin [Levaquin] 750 mg PO DAILY 3 Days #3 tablet 04/07/18 [Rx] Allergies/Adverse Reactions: Allergy/AdvReac Type Severity Reaction Status Date / Time No Known Allergies Allergy Verified 04/04/18 21:17 - Respiratory Orders Oxygen / L per min (2) Smoking Cessation: Smoking cessation has been advised. For more information, call the [employer] Tobacco Quit Line at 4-925-UJFG-NOW. - Advance Directives Code Status: DNR-Comfort Care - Rehabiliation Orders Rehab Orders: Evaluation for Physical Therapy, Evaluation for Occupational T herapy - Diet Orders Cardiac CERTIFICATION: I certify that the transfer of the above named patient to an Extended Care Facility is necessary for the continuing treatment of the diagnosis listed. The above information is true and accurate reflection of patient's current condition. Confidential - Redisclosure prohibited without a patient's written consent.
[2018-04-08] MEDS ORDERED: levoFLOXacin 750 MG TABLET PO SCH (08:00)
== END 2018-04-07 13:28 | disposition hospice, inpatient (51) | DRG 871 ==
LOC: 2ANU 16:42 → EMEROOARM 16:42 → SUATTDRO 19:43 → 2ANU 20:43 → SUATTDRO 04-05 08:08
PROVIDERS: ADMIT Family Medicine; ATTEND Internal Medicine